=== PATIENT | male | born 1975 | race Caucasian/White ===

== ENCOUNTER 2019-12-25 07:54 | Outpatient (CLI) | payer BC, SELFPAY ==
--- NOTE | 2020-01-02 23:40 | SLEEP_ITS ---
CPAP Titration DATE OF STUDY: 12/25/2019 REASON FOR THIS STUDY: Severe obstructive sleep apnea syndrome. HISTORY: This patient is a 44-year-old male, who is 73 inches tall, weighing 367 pounds with a body mass index of 48.4. On 09/16/2019, he underwent a home sleep study that showed an apnea-hypopnea index of 44.2 with a minimum desaturation of 68%. He returns now for a CPAP titration. PAST MEDICAL HISTORY: Bicuspid aortic valve with a history of mechanical aortic valve replacement on chronic anticoagulation. MEDICATIONS: 1. Aspirin. 2. Fenofibrate. 3. Lisinopril. 4. Metoprolol. 5. Warfarin. 6. Furosemide. DESCRIPTION OF THE STUDY: On the [place] Sleepiness Scale, the score was 5. This test was scored using CMS guidelines. The [employer] multiple channel system was used including EOG, EEG, submental EMG, EKG, nasal and oral airflow using thermistors and nasal pressure sensors, chest and abdominal belts, body position data and pulse oximetry. The study was scored using CMS guidelines. Duration of the study was 503.7 minutes. The sleep time was 411.5 minutes. Sleep efficiency was 81.7%. Sleep latency was 12.9 minutes. REM latency was 90 minutes. There were 39 awakenings and the patient spent 16.2% of the study awake after sleep onset, 79 minutes. Sleep architecture showed 10.5% stage I sleep, 56.1% stage II sleep, no stage III sleep, and 17.2% stage REM. None of the study was supine. It was all lateral. The overall apnea-hypopnea index was 10.8. All of these were obstructive events. The patient had 43 obstructive hypopneas in REM in non-supine position. The index was 30.5. In non-REM, the patient had 32 obstructive hypopneas, also non-supine for an index of 5.9. The non-supine index overall was 10.8. The minimum desaturation was 86%. There were 83 desaturations of 4% or greater for an index of 9.9. REM desaturation index was 35.5. A 0.5 minutes were spent below 88%, 0.1% of the study. AROUSALS: One hundred sixty-three arousals for an index of 19.4. There were 17 hypopneas for an index of 2, 1 snore for an index of 0.1, 93 spontaneous for an index of 11.1, and 52 limb movements for an index of 6.2. LIMB MOVEMENTS: Three hundred eighty-two limb movements for an index of 55.7. This is extremely elevated. EKG: Sinus rhythm, mean heart rate is 62. No arrhythmia. EEG: Unremarkable. During this titration, the patient used a medium Zamarripa FX mask. CPAP was initiated at 5 cm. However, the patient was having a difficult time sleeping, so bilevel was used for the patient's comfort and then this was switched back to CPAP when the patient was more comfortable. Respiratory rate was elevated around 30 per minute. EPR was added as the patient was having oral puffing. At the end of the study, on a CPAP pressure of 12 cm and 3 of EPR, the apnea-hypopnea index was significantly improved at 3.7. The patient spent 1 hour 56 minutes in bed, 18 minutes in REM, 1 hour 18 minutes in non-REM with a minimum saturation of 91%. The sleep efficiency was 77%. No central events were noted on this study. IMPRESSION: 1. This was a challenging CPAP BiPAP titration due to multiple factors including the patient's high apnea-hypopnea index initially, intolerant of low levels of CPAP, and absence of supine REM. Overall, the sleep architecture was relatively normal with 4 REM cycles. However, there was fragmentation that persisted throughout the study. This patient may benefit by use of CPAP at 12 cm with 3 of EPR. He may also tolerate auto PAP with pressures between benefit at a bilevel of 11/7, 10 cm and 15 cm with EPR and close clinical followup. He should use this with all episodes of sleep. 2. Extremely elevated limb movement index consis
== END 2019-12-25 07:55 | disposition home or self-care (01) ==
LOC: ANHCSM 07:55
PROVIDERS: PCP Internal Medicine; Visit Provider Nurse Practitioner Adult Health
DX: G47.33 Obstructive sleep apnea (adult) (pediatric) (principal); G47.61 Periodic limb movement disorder; Z68.42 Body mass index [BMI] 45.0-49.9, adult
CPT/HCPCS: 95811

== ENCOUNTER 2020-02-19 08:38 | Outpatient (CLI) | payer BC, SELFPAY ==
--- NOTE | ~2020-02-19 | CT_ITS ---
EXAMINATION:CT chest w con DATE: 02/19/2020 09:55 INDICATION: Ascending aortic aneurysm. Bicuspid aortic valve. TECHNIQUE: Computed tomography (CT) of the chest was performed with 75 mL Omnipaque 350 intravenous c ontrast. Automated exposure control and iterative reconstruction technique were employed. The dose-le ngth product (DLP) was 970.81 mGy-cm. COMPARISON: None. FINDINGS: The lungs demonstrate mild atelectasis. No pleural effusion. The heart size is normal. No p ericardial effusion. There are changes of aortic valve replacement. There is a 5.1 cm fusiform aneury sm of ascending aorta. The aorta measures 3.1 cm at the isthmus. The mid descending aorta measures 3. 0 cm. There are no pathologically enlarged lymph nodes. There is mild thoracic spondylosis. IMPRESSION: 1. 5.1 cm fusiform aneurysm of ascending aorta. Reviewed, dictated and finalized at location A.
[2020-02-19 09:41] LABS: Estimated Glomerular Filt Rate > 60
== END 2020-02-19 08:39 | disposition home or self-care (01) ==
PROVIDERS: PCP Internal Medicine; Visit Provider Internal Medicine Cardiovascular Disease
DX: Q23.1 Congenital insufficiency of aortic valve (principal); I71.2 Thoracic aortic aneurysm, without rupture
CPT/HCPCS: 36415; 71260; Q9967

== ENCOUNTER 2021-02-20 18:10 | Inpatient (IN) | payer BC, SELFPAY ==
--- NOTE | ~2021-02-20 | XR_ITS ---
XR chest 1V portable DATE: 02/25/2021 20:47 INDICATION: Cough and wheezing for 2 days. Congestive heart, stents, aortic aneurysm TECHNIQUE: Portable AP chest on 02/25/2021 at 2047 hours COMPARISON: 02/21/2021 portable AP chest at 04 hours FINDINGS: Status post sternotomy. No pulmonary infiltrate or consolidation, pleural effusion or pulmonary vascular congestion or pneumo thorax is evident. Osteopenia. IMPRESSION: Status post sternotomy: No active pulmonary disease Reviewed, dictated and finalized at location A.
--- NOTE | ~2021-02-20 | XR_ITS ---
EXAMINATION: XR chest 1V portable INDICATION: Shortness of breath TECHNIQUE: Portable AP chest at 1004 hours COMPARISON: 06/17/2017 FINDINGS: The lungs are free of acute opacities. There is no pleural effusion or pneumothorax. The he art size is normal. Changes of cardiac valve surgery are noted. IMPRESSION: 1. No acute cardiopulmonary abnormality. Reviewed, dictated and finalized at location B.
--- NOTE | ~2021-02-20 | CT_ITS ---
EXAMINATION: CT abdomen pelvis w con INDICATION: Right-sided abdominal pain TECHNIQUE: Computed tomographic images of the abdomen and pelvis were obtained after the administrati on of 100 cc of Omnipaque 350 intravenous contrast. The dose-length product (DLP) was 1622.96 mGy-cm. Automated exposure control and iterative reconstruction technique were employed. COMPARISON: None available FINDINGS: Minimal dependent atelectasis is present in the lung bases. The heart size is normal. The l iver, spleen, pancreas, and adrenal glands are normal. There is wall thickening of the gallbladder an d edematous stranding of the pericholecystic fat. The kidneys are unremarkable. There are mildly enla rged periportal lymph nodes. There is no free intraperitoneal gas or evidence of bowel obstruction. T here is mild lumbar spondylosis. IMPRESSION: 1. CT findings consistent with acute cholecystitis. Reviewed, dictated and finalized at location A.
--- NOTE | ~2021-02-20 | US_ITS ---
EXAMINATION: US renal BI DATE: 02/21/2021 17:03 INDICATION: Acute kidney injury. TECHNIQUE: Multiple ultrasound grayscale images of the kidneys were obtained. COMPARISON: CT abdomen and pelvis 02/20/2021 FINDINGS: The right kidney measures 13.3 x 5.8 x 6.1 cm. The left kidney measures 12.1 x 5.3 x 7.0 cm. The kidn eys demonstrate normal parenchymal echogenicity. There is no hydronephrosis. The bladder is normal. IMPRESSION: 1. Normal kidneys. No hydronephrosis. Reviewed, dictated and finalized at location A.
--- NOTE | ~2021-02-20 | US_ITS ---
EXAMINATION: US perc cholecystostomy w imag DATE: 02/21/2021 17:06 INDICATION: Acute cholecystitis. TECHNIQUE: The procedure including the risks, benefits, and alternatives was discussed with the patie nt. Risks discussed included bleeding including hemobilia, infection, and bile peritonitis. Oral and written consent were obtained. A timeout was performed to verify the patient's name, date of , and procedure to be performed. The patient was confirmed to be receiving appropriate antibiotic cov erage. The skin overlying the liver and gallbladder was prepped and draped in usual sterile fashion. Anesthetic was administered with 1% lidocaine subcutaneously. An 8.5 Fr catheter was inserted into the gallbladder by trocar technique. The metal stiffener and trocar needle were removed, and the pig tail tip was locked. Bile was aspirated and sent for culture. The catheter was stitched to the skin w ith suture. There were no immediate complications. FINDINGS: Ultrasound images demonstrate the catheter within the gallbladder. 5 mL bile was aspirated. IMPRESSION: 1. Successful ultrasound-guided cholecystostomy tube placement. 2. 5 mL black bile was sent for aerobic and anaerobic cultures. 3. The catheter will be managed by Dr. Quinn. A catheter cholangiogram may be performed not less th an 48 hours after tube placement if clinically indicated to assess cystic duct patency. If cholecyste ctomy is not eventually performed and the infectious episode has resolved, the tube may be removed ov er a guidewire, preferably not less than 3 weeks after placement to allow time for a mature catheter tract to form to prevent bile leakage and peritonitis. Reviewed, dictated and finalized at location A. IMPRESSION: 1. Successful ultrasound-guided cholecystostomy tube placement. 2. 5 mL black bile was sent for aerobic and anaerobic cultures. 3. The catheter will be managed by Dr. Quinn. A catheter cholangiogram may be performed not less than 48 hours after tube placement if clinically indicated to assess cystic duct patency. If cholecystectomy is not eventually performed a nd the infectious episode has resolved, the tube may be removed over a guidewir e, preferably not less than 3 weeks after placement to allow time for a mature catheter tract to form to prevent bile leakage and peritonitis.
[2021-02-20 18:13] VITALS: BP 145/71; PULSE 128; RESP 24; TEMP 37.7; O2SAT 97
[2021-02-20 18:34] LABS: Basophils Absolute Auto 0.1 K/mm3 (0.0-0.1); Basophils Percent Auto 0.5 % (0.2-1.2); Eosinophils Absolute Auto 0.1 K/mm3 (0-0.3); Eosinophils Percent Auto 1.1 % (0-4.4); Hematocrit 45.4 % (42.0-52.0); Immature Granulocyte Absolute 0.03 K/mm3 (0.00-0.031); Immature Granulocyte Percent A 0.3 % (0-0.5); Lymphocytes Absolute Auto 0.43 K/mm3 (0.9-3.2); Lymphocytes Percent Auto 4.4 % (18.3-44.2); Mean Corpuscular Hemoglobin 27.3 pg (26-34); Mean Corpuscular Volume 82.5 fl (80-100); Mean Platelet Volume 11.2 fl (7.4-10.4); Monocytes Absolute Auto 0.1 K/mm3 (0.1-0.6); Monocytes Percent Auto 1.3 % (2.6-8.5); Neutrophils Absolute Auto 8.9 K/mm3 (1.3-6.7); Neutrophils Percent Auto 92.4 % (45.5-73.1); Platelet Count Result 194 k/mm3 (150-375); Red Cell Distribution Width 16.3 % (11.5-14.5); White Blood Count 9.7 K/mm3 (4.5-10.0)
[2021-02-20 18:45] LABS: Anion Gap 9 mmol/L (8-16); Blood Urea Nitrogen 11 mg/dL (9-20); Calcium 9.5 mg/dL (8.4-10.2); Carbon Dioxide 25 mmol/L (22-30); Chloride 102 mmol/L (98-107); Estimated CRCL calculation 179 ml/min; Estimated Glomerular Filt Rate > 60; Glucose 133 mg/dL (75-110); Potassium 4.3 mmol/L (3.4-5.0); Sodium 136 mmol/L (137-145)
[2021-02-20 18:47] LABS: Add Urine Microscopic? YES; Appearance Urine Clear (Clear); Bacteria Urine Trace /hpf; Bilirubin Urine Negative (Negative); Blood Urine 1+ (Negative); Color Urine Yellow (Yellow); Glucose Urine UA Negative (Negative); Ketones Urine Negative (Negative); Leukocyte Esterase Ur Negative LEU/UL (Negative); Mucus Urine Rare /lpf; Nitrate Urine Negative (Negative); Protein Urine 1+ mg/dL (Negative); Specific Grav Ur 1.016 (1.001-1.035); Urobilinogen Urine Negative mg/dL (<2.0); WBC Urine 0-3 /hpf
--- NOTE | 2021-02-20 18:47 | ED.ABDPAIN ---
HPI - Abdominal Pain General Chief Complaint: Abdominal Pain Stated Complaint: r sided abd pain Time Seen by Provider: 02/20/21 18:33 Source: patient Mode of arrival: ambulatory Limitations: no limitations History of Present Illness HPI narrative: Patient is a 45-year-old male complaining of right upper quadrant pain, 10 out of 10 earlier, now down to a 4 out of 10, sharp, nonradiating that started few hours ago. Patient denies any chest pain, shortness of breath, nausea, vomiting, diarrhea, fever or chills. Related Data Home Medications Medication Instructions Recorded Confirmed aspirin 81 mg chewable tablet 81 mg PO DAILY 03/01/20 02/20/21 lisinopril 20 mg tablet 40 mg PO DAILY 03/01/20 02/20/21 metoprolol tartrate 50 mg tablet 50 mg PO Q12H 03/01/20 02/20/21 warfarin 2 mg tablet 6 mg PO EVERY OTHER DAY 03/01/20 02/20/21 atorvastatin 40 mg tablet 40 mg PO DAILY 03/19/20 02/20/21 warfarin 4 mg tablet 4 mg PO EVERY OTHER DAY 12/23/20 02/20/21 Allergies Allergy/AdvReac Type Severity Reaction Status Date / Time No Known Allergies Allergy Verified 02/20/21 18:16 Review of Systems Review of Systems: All systems reviewed & are unremarkable except as noted in HPI and below Constitutional: Constitutional: Denies body ache(s), Denies chills, Denies excessive sweating, Denies fatigue, Denies fever(s), Denies headache(s), Denies lethargy, Denies malaise, Denies weakness and Denies weight loss Eyes: Eyes: Denies blurry vision, Denies change in vision and Denies loss of vision ENT: Denies dizziness, Denies ear discharge, Denies headache(s), Denies lip swelling, Denies epistaxis, Denies nasal congestion, Denies neck pain, Denies throat swelling and Denies tongue swelling Cardiovascular: Cardiovascular: Denies chest pain, Denies chest pain at rest, Denies chest pain with activity, Denies diaphoresis, Denies rapid heart rate, Denies edema, Denies irregular heart rhythm, Denies lightheadedness, Denies palpitations, Denies dyspnea and Denies dyspnea on exertion Respiratory: Respiratory: Denies chest congestion, Denies cough, Denies hemoptysis, Denies dyspnea and Denies dyspnea on exertion Gastrointestinal: Gastrointestinal: Denies melena, Denies hematochezia, Denies diarrhea, Denies nausea, Denies vomiting and Denies hematemesis Musculoskeletal: Musculoskeletal: Denies abnormal gait, Denies deformity, Denies joint swelling, Denies limited range of motion, Denies neck pain and Denies numbness Neurologic: Denies Abnormal speech present, Denies abnormal gait, Denies confusion, Denies dizziness, Denies headache(s), Denies focal weakness, Denies loss of vision, Denies numbness, Denies Other visual disturbances, Denies Sensory deficit (Neuro) and Denies weakness Psychiatric: Psychiatric: Denies confusion, Denies depression, Denies auditory hallucinations, Denies homicidal ideation and Denies suicidal ideation Endocrine: Endocrine: Denies cold intolerance, Denies excessive sweating, Denies fatigue, Denies heat intolerance and Denies palpitations Hematologic/Lymphatic: Hematologic/Lymphatic: Denies easy bleeding and Denies easy bruising Allergic/Immunologic: Allergic/Immunologic: Denies lip swelling, Denies throat swelling and Denies tongue swelling PMFSH Past Medical History Medical History Ascending aortic aneurysm Bicuspid aortic valve Cardiomyopathy Congenital heart defect Diabetes mellitus Enlarged heart Essential hypertension Hyperglyceridemia Morbid obesity MARY JANE (obstructive sleep apnea) Pulmonary valve disorder Family History Family History Mother Hypertension Father Family history of diabetes mellitus in first degree relative Grandparent Diabetes mellitus Family history of coronary artery disease Social History Social History Smoking status: Never smoker S
--- NOTE | 2021-02-20 20:00 | ECG_ITS ---
Measurements Intervals [place] Rate: 118 P: [place]: 0 QRS: 0 QRSD: 97 T: 72 QT: 334 QTc: 469 Interpretive Statements SINUS TACHYCARDIA LEFT VENTRICULAR HYPERTROPHY AND ST-T CHANGE ABNORMAL ECG Electronically Signed On 02-21-2021 8:29:49 CDT by Evens Mehta D.O.
[2021-02-20] MEDS: SODIUM CHLORIDE 0.9% IV 1,000 ML 999 ML IV CONT (20:01)
[2021-02-20] MEDS: ONDANSETRON INJ 4 MG/2 ML VIAL IV PUSH (20:01)
[2021-02-20] MEDS: MORPHINE SULFATE (*CRX) 2 MG/ML INJ IV PUSH (20:02)
[2021-02-20 20:41] VITALS: BP 94/61; PULSE 104; RESP 19; TEMP 39.5; O2SAT 93
[2021-02-20 20:42] LABS: Alanine Aminotransferase 311 U/L (4-50); Alkaline Phosphatase 129 U/L (38-126); Aspartate Amino Transferase 475 U/L (17-59); Bilirubin,Total 2.1 mg/dL (0.2-1.3); Lactic Acid Reflex 3.4 mmol/L (0.7-2.1); Lipase 131 U/L (23-300)
[2021-02-20] MEDS: ACETAMINOPHEN 325 MG TABLET 650 MG PO (20:50)
[2021-02-20 21:01] LABS: INR 2.3; Prothrombin Time 25.8 Seconds (11.1-14.7)
[2021-02-20] MEDS: LACTATED RINGERS 1,000 ML 999 ML IV CONT (21:18)
[2021-02-20 21:58] VITALS: BP 102/69; PULSE 104; RESP 16; TEMP 38.8; O2SAT 93
[2021-02-20 22:34] VITALS: PULSE 111
--- NOTE | 2021-02-20 22:35 | ADMGEN ---
This patient, Chung Cornelius, was admitted to Medical Room 253-01. Patient/family oriented to hospital policies and general routines including ID bracelet, bed and alarms, visiting hours, pain management, procedures, bathroom and other care routines, personal items, smoking policy, room service/diet, and visiting hours. Information on how to activate the Rapid Response Team has been discussed. Patient/Family are encouraged to report perceived risks to care and to ask questions if they do not understand what they are told or what they should do.
[2021-02-20 22:45] VITALS: BP 106/56; PULSE 109; RESP 18; TEMP 38.3; O2SAT 98
[2021-02-20 22:46] VITALS: BMI 43.5
[2021-02-20] MEDS: LACTATED RINGERS 1,000 ML 125 ML IV CONT (22:48)
[2021-02-20 23:15] VITALS: TEMP 37.7
[2021-02-20 23:27] LABS: Reflex Lactic Acid Yes or No Add Lactic
[2021-02-21] VITALS (26 sets, daily range): BP systolic 100–120; BP diastolic 45–69; PULSE 89–119; RESP 16–28; TEMP 36.3–38.4; O2SAT 84–98
[2021-02-21 00:44] LABS: Glucose Point of Care 124 (65-105)
[2021-02-21 01:31] LABS: Lactic Acid 4.2 mmol/L (0.7-2.1)
[2021-02-21] MEDS: SODIUM CHLORIDE 0.9% IV 1,000 ML 999 ML IV CONT (02:00)
[2021-02-21] MEDS: HYDROmorphone HCL INJ (*CRX) 1 MG/ML SYR 0.5 MG IV PUSH ×5 (03:05→20:48)
--- NOTE | 2021-02-21 04:19 | PM.IMHP ---
H&P: HPI History of Present Illness Date/Time: 02/21/21 04:19 this is a 45-year-old male patient who has had no prior history and any gallbladder issues. He has a past medical history of having an aortic valve replacement which is mechanical. He has been on Coumadin for this. The patient stated that shortly after he ate pizza and some other food items he developed some severe pain to his right upper quadrant. The patient had been complaining that his pain was 10/10. By time he came to the emergency room is 4/10. The pain started several hours before came to the emergency room. The patient denied any chest pain or shortness of breath. He had some diarrhea but no nausea or vomiting. The patient had a 37.7? C temperature and his heart rate was 128. CT of the abdomen was findings consistent with acute cholecystitis. The patient was started on IV fluids, Zofran, Zosyn, morphine, Tylenol, and IV fluids. the ER provider stated that surgery has been consulted the patient is NPO and that the surgeon is aware that the patient has a valve replacement and has been on Coumadin. The patient is now NPO. The patient is being admitted to inpatient services on the date of service of 02/21/2021 Chief Complaint: Right upper quadrant pain Review of Systems Review of Systems: All systems reviewed & are unremarkable except as noted in HPI and below Constitutional: Constitutional: Reports as per HPI and Reports no additional constitutional complaints Eyes: Eyes: Reports as per HPI and Reports no additional eye complaints ENT: Reports system reviewed and no additional complaints, except as documented and Reports Normal hearing present Cardiovascular: Cardiovascular: Reports no additional cardiovascular complaints Respiratory: Respiratory: Reports no additional respiratory complaints and Reports no additional respiratory complaints Gastrointestinal: Gastrointestinal: Reports as per HPI and Reports no additional gastrointestinal complaints Musculoskeletal: Musculoskeletal: Reports no additional musculoskeletal complaints Integumentary/Breasts: Skin/Breast: Reports system reviewed and no additional complaints, except as docu and Reports as per HPI Neurologic: Reports system reviewed and no additional complaints, except as documented, Reports as per HPI and Reports Normal hearing present Psychiatric: Psychiatric: Reports no additional psychiatric complaints and Reports as per HPI Endocrine: Endocrine: Reports no additional endocrine complaints Hematologic/Lymphatic: Hematologic/Lymphatic: Reports no additional hematologic/lymphatic complaints Allergic/Immunologic: Allergic/Immunologic: Reports no additional allergic/immunologic complaints [facility] Past Medical History Medical History (Updated 02/21/21 @ 04:31 by Bonnie Shultz NP) Ascending aortic aneurysm Bicuspid aortic valve Cardiomyopathy Congenital heart defect Diabetes mellitus DM2 (diabetes mellitus, type 2) Enlarged heart Essential hypertension Hyperglyceridemia Hyperlipidemia Morbid obesity MARY JANE (obstructive sleep apnea) Pulmonary valve disorder Surgical History Surgical History (Updated 02/21/21 @ 04:24 by Bonnie Shultz NP) History of aortic valve replacement mechanical History of appendectomy Family History Family History Mother Hypertension Father Family history of diabetes mellitus in first degree relative Family history of cholecystectomy Grandparent Diabetes mellitus Family history of coronary artery disease Social History Social History (Updated 02/21/21 @ 04:25 by Bonnie Shultz NP) Social History: the patient lives with his and she is a durable power commercial litigation attorney for healthcare. 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 He has 1 child. His is the durable power commercial litigation attorney for healthcare. He is a full code. The patient occasionally uses alcohol but only socially. He does no
[2021-02-21] MEDS: HEPARIN SOD/D5W 100 UNITS/ML 25,000 UNITS/250 ML BAG 15 UNITS IV CONT (05:17)
[2021-02-21 05:46] LABS: Basophils Percent Auto 0.3 % (0.2-1.2); Eosinophils Absolute Auto 0.1 K/mm3 (0-0.3); Hematocrit 39.4 % (42.0-52.0); Hemoglobin 12.8 g/dL (14.0-18.0); Immature Granulocyte Absolute 0.05 K/mm3 (0.00-0.031); Immature Granulocyte Percent A 0.5 % (0-0.5); Lymphocytes Absolute Auto 0.41 K/mm3 (0.9-3.2); Lymphocytes Percent Auto 4.1 % (18.3-44.2); Mean Corpuscular HGB Conc 32.5 g/dl (32-36); Mean Corpuscular Hemoglobin 27.8 pg (26-34); Mean Corpuscular Volume 85.5 fl (80-100); Mean Platelet Volume 11.2 fl (7.4-10.4); Monocytes Absolute Auto 0.1 K/mm3 (0.1-0.6); Monocytes Percent Auto 1.4 % (2.6-8.5); Neutrophils Absolute Auto 9.3 K/mm3 (1.3-6.7); Neutrophils Percent Auto 92.7 % (45.5-73.1); Platelet Count Result 140 k/mm3 (150-375); Red Blood Count 4.61 M/mm3 (4.6-6.20); Red Cell Distribution Width 16.5 % (11.5-14.5)
[2021-02-21 05:51] LABS: Glucose Point of Care 104 (65-105)
[2021-02-21 05:52] LABS: INR 2.5; Prothrombin Time 27.8 Seconds (11.1-14.7)
[2021-02-21 05:53] LABS: Partial Thromboplastin Time 42.2 SECONDS (22.3-36.8)
[2021-02-21 05:54] LABS: Anion Gap 9 mmol/L (8-16); Blood Urea Nitrogen 17 mg/dL (9-20); Calcium 8.4 mg/dL (8.4-10.2); Carbon Dioxide 24 mmol/L (22-30); Chloride 103 mmol/L (98-107); Estimated CRCL calculation 93 ml/min; Estimated Glomerular Filt Rate 55; Glucose 105 mg/dL (75-110); Potassium 4.4 mmol/L (3.4-5.0); Sodium 136 mmol/L (137-145)
[2021-02-21] MEDS: ONDANSETRON INJ 4 MG/2 ML VIAL IV PUSH ×2 (07:43→11:35)
[2021-02-21 08:36] LABS: Lactic Acid Reflex 5.2 mmol/L (0.7-2.1)
[2021-02-21 08:45] LABS: Albumin Level 3.2 g/dL (3.5-5.1); Alkaline Phosphatase 89 U/L (38-126); Aspartate Amino Transferase 202 U/L (17-59); Bilirubin,Total 5.1 mg/dL (0.2-1.3)
[2021-02-21] MEDS: LACTATED RINGERS 1,000 ML 125 ML IV CONT ×2 (08:47→19:25)
[2021-02-21 08:52] LABS: Alanine Aminotransferase 243 U/L (4-50)
[2021-02-21 10:10] LABS: Bilirubin Direct 1.7 mg/dL (0-0.3); Bilirubin Indirect 2.2 mg/dL (0-1.1)
--- NOTE | 2021-02-21 10:32 | P.PNIM_ITS ---
Progress Note: A&P Assessment and Plan (1) Acute cholecystitis: Code(s): K81.0 - Acute cholecystitis <Tanya Hernandez PA-C - Last Filed: 02/21/21 12:27> Status: Acute <Tanya Hernandez PA-C - Last Filed: 02/21/21 12:27> Assessment and Plan: * Sudden onset right upper abdominal pain. CT findings consistent with acute cholecystitis. * Continue Zosyn (day 1). General surgery input appreciated. Anticipate possible perc cholecystostomy tube placement today. * Continue pain control and antiemetics as needed. <Tanya Hernandez PA-C - Last Filed: 02/21/21 12:27> (2) Sepsis: Qualifiers: Sepsis acute organ dysfunction status: unspecified Sepsis type: sepsis due to unspecified organism Qualified Code(s): A41.9 - Sepsis, unspecified organism <Tanya Hernandez PA-C - Last Filed: 02/21/21 12:27> Code(s): A41.9 - Sepsis, unspecified organism <Tanya Hernandez PA-C - Last Filed: 02/21/21 12:27> Status: Acute <Tanya Hernandez PA-C - Last Filed: 02/21/21 12:27> Assessment and Plan: * Evident by fever, tachycardia. Lactic acid up to 5.2. Suspected source is acute cholecystitis. * Continue IV fluids while monitoring fluid status closely given his valve history. Ice packs and cooling blanket for fever. Not able to take ibuprofen due to his coumadin and renal function, will attempt to avoid too much tylenol given his transaminitis. * Continue antibiotics as above. Ordered blood cultures this morning although abx have already been initiated. * Monitor renal function, vital signs, and urine output closely. <Tanya Hernandez PA-C - Last Filed: 02/21/21 12:27> (3) Abnormal liver function tests: Code(s): R94.5 - Abnormal results of liver function studies <PETERSON AguayoC - Last Filed: 02/21/21 12:27> Status: Acute <EVERARDO Aguayo-C - Last Filed: 02/21/21 12:27> Assessment and Plan: * LFTs markedly elevated on arrival, trending down this morning. Total bilirubin 2.1 yesterday up to 5.1 this morning raising concern for possible stone in CBD duct. * Monitor daily. <PETERSON AguayoC - Last Filed: 02/21/21 12:27> (4) History of aortic valve replacement: Code(s): Z95.2 - Presence of prosthetic heart valve <PETERSON AguayoC - Last Filed: 02/21/21 12:27> Status: Chronic <PETERSON AguayoC - Last Filed: 02/21/21 12:27> Assessment and Plan: * [facility] mechanical aortic valve replacement Jul [address] Sterling. * Follows with Dr Cervantes. Recent echocardiogram 01/28/21 reviewed - systolic function is normal EF 55-60% without wall motion abnormalities. Impaired diastolic relaxation grade I. Mild [place], [place], [place]. Mild pulmonary hypertension. Mild LA enlargement. Aortic root mod to severely dilated. 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 On long-term anticoagulation with warfarin for same with goal INR 2.5 to 3.5. Given his need for possible surgical intervention, his warfarin was held on arrival and he was started on heparin gtt. * Heparin gtt held at pres
--- NOTE | 2021-02-21 10:32 | PM.IMPN ---
Progress Note: A&P Assessment and Plan (1) Acute cholecystitis: Code(s): K81.0 - Acute cholecystitis <Tanya Hernandez PA-C - Last Filed: 02/21/21 12:27> Status: Acute <Tanya Hernandez PA-C - Last Filed: 02/21/21 12:27> Assessment and Plan: Sudden onset right upper abdominal pain. CT findings consistent with acute cholecystitis. Continue Zosyn (day 1). General surgery input appreciated. Anticipate possible perc cholecystostomy tube placement today. Continue pain control and antiemetics as needed. <Tanya Hernandez PA-C - Last Filed: 02/21/21 12:27> (2) Sepsis: Qualifiers: Sepsis acute organ dysfunction status: unspecified Sepsis type: sepsis due to unspecified organism Qualified Code(s): A41.9 - Sepsis, unspecified organism <Tanya Hernandez PA-C - Last Filed: 02/21/21 12:27> Code(s): A41.9 - Sepsis, unspecified organism <Tanya Hernandez PA-C - Last Filed: 02/21/21 12:27> Status: Acute <Tanya Hernandez PA-C - Last Filed: 02/21/21 12:27> Assessment and Plan: Evident by fever, tachycardia. Lactic acid up to 5.2. Suspected source is acute cholecystitis. Continue IV fluids while monitoring fluid status closely given his valve history. Ice packs and cooling blanket for fever. Not able to take ibuprofen due to his coumadin and renal function, will attempt to avoid too much tylenol given his transaminitis. Continue antibiotics as above. Ordered blood cultures this morning although abx have already been initiated. Monitor renal function, vital signs, and urine output closely. <Tanya Hernandez PA-C - Last Filed: 02/21/21 12:27> (3) Abnormal liver function tests: Code(s): R94.5 - Abnormal results of liver function studies <Tanya Hernandez PA-C - Last Filed: 02/21/21 12:27> Status: Acute <Tanya Hernandez PA-C - Last Filed: 02/21/21 12:27> Assessment and Plan: LFTs markedly elevated on arrival, trending down this morning. Total bilirubin 2.1 yesterday up to 5.1 this morning raising concern for possible stone in CBD duct. Monitor daily. <Tanya Hernandez PA-C - Last Filed: 02/21/21 12:27> (4) History of aortic valve replacement: Code(s): Z95.2 - Presence of prosthetic heart valve <Tanya Hernandez PA-C - Last Filed: 02/21/21 12:27> Status: Chronic <Tanya Hernandez PA-C - Last Filed: 02/21/21 12:27> Assessment and Plan: [employer] mechanical aortic valve replacement Jul [address] Sterling. Follows with Dr Cervantes. Recent echocardiogram 01/28/21 reviewed - systolic function is normal EF 55-60% without wall motion abnormalities. Impaired diastolic relaxation grade I. Mild [place], TR, AR. Mild pulmonary hypertension. Mild LA enlargement. Aortic root mod to severely dilated. 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 On long-term anticoagulation with warfarin for same with goal INR 2.5 to 3.5. Given his need for possible surgical intervention, his warfarin was held on arrival and he was started on heparin gtt. Heparin gtt held at present by surgery for possible perc drain placement today. Anticipate heparin gtt to be resumed later this afternoon after perc drain placement. Anticipate warfarin to be held again this evening. He will need to stay on heparin gtt until his warfarin gets resumed and could be stopped once INR is between 2.5 - 3.5. Monitor INR daily.
--- NOTE | 2021-02-21 11:20 | PM.CNGS ---
Assessment and Plan Assessment and plan (1) Acute cholecystitis: Code(s): K81.0 - Acute cholecystitis Status: Acute Assessment and Plan: CT scan reviewed with Dr. Quinn and discussed with the patient. He has evidence of acute cholecystitis, no obvious gallstones seen on CT. This appears to be the source of his sepsis. The patient would be an extremely high risk surgical candidate due to his cardiac history, anticoagulation, sepsis, obesity, and other co-morbidities. With this being said, we will proceed with percutaneous cholecystostomy tube placement today by the Radiologist. I have discussed the plan with the patient and answered all questions. Dr. Quinn has already spoke to the Radiologist and we will stop the Heparin drip and give 2 units of FFP in preparation for the procedure. Continue broad-spectrum IV antibiotics, IV fluids, and analgesics as well. Will need to continue to trend labs and monitor the patient closely. (2) Abnormal liver function tests: Code(s): R94.5 - Abnormal results of liver function studies Status: Acute Assessment and Plan: LFTs elevated, which could be related to the acute cholecystitis or choledocholithiasis. There is no significant intrahepatic or extrahepatic ductal dilatation noted on the CT. We will proceed with the plan above and repeat labs tomorrow. If his LFTs remain elevated or continue to increase, then we will need to consult GI to evaluate the patient for an ERCP. He is not a candidate for MRCP due to mechanical valve. (3) Sepsis: Qualifiers: Sepsis type: sepsis due to unspecified organism Sepsis acute organ dysfunction status: unspecified Qualified Code(s): A41.9 - Sepsis, unspecified organism Code(s): A41.9 - Sepsis, unspecified organism Status: Acute Assessment and Plan: Secondary to acute cholecystitis. Sepsis criteria met with tachycardia, fever, tachypnea, and lactic acidosis in the setting of an acute infection. Continue IV Zosyn. IV fluids being managed by the Hospitalist to adequately fluid resuscitate him without fluid overload due to his cardiac history. Percutaneous cholecystostomy planned for today for source control (see plan rustam). Blood cultures ordered. Monitor serial lactic acid. (4) RAJNI (acute kidney injury): Code(s): N17.9 - Acute kidney failure, unspecified Status: Acute Assessment and Plan: Creatinine up to 1.4 on labs today. Discussed with Hospitalist. Likely secondary to sepsis/acute cholecystitis. Continue to monitor labs. 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 We will hold the Heparin drip for cholecystostomy tube placement. This can be restarted after the cholecystostomy tube is successfully placed. (6) History of aortic valve replacement: Code(s): Z95.2 - Presence of prosthetic heart valve Status: Chronic Assessment and Plan: Mechanical aortic valve replacement in 2017. Takes warfarin, which is currently on hold. See plan above. (7) Ascending aortic aneurysm: Code(s): I71.2 - Thoracic aortic aneurysm, without rupture Status: Chronic Assessment and Plan: Measuring 5.[address] chest in February 2020. Last Cardiology progress note suggests this was stable on his most recent Echo. (8) DM2 (diabetes mellitus, type 2): Code(s): E11.9 - Type 2 diabetes mellitus without complications Status: Chronic (9) MARY JANE (obstructive sleep apnea): Code(s): G47.33 - Obstructive sleep apnea (adult) (pediatric) Status: Chronic Assessment and Plan: Non-compliant with CPAP. (10) Essential hypertension: Code(s): I10 - Essential (primary) hypertension Status: Chronic Additional Plan I have discussed the patient's case and plan of care with Dr. Quinn.
[2021-02-21] MEDS: SODIUM CHLORIDE 0.9% IV 250 ML 30 ML IV CONT (12:39)
[2021-02-21 13:03] LABS: Glucose Point of Care 99 (65-105)
[2021-02-21 13:34] LABS: Lactic Acid Reflex 4.8 mmol/L (0.7-2.1)
[2021-02-21 13:39] LABS: Alanine Aminotransferase 246 U/L (4-50); Albumin Level 3.2 g/dL (3.5-5.1); Alkaline Phosphatase 86 U/L (38-126); Anion Gap 10 mmol/L (8-16); Aspartate Amino Transferase 180 U/L (17-59); Bilirubin,Total 5.9 mg/dL (0.2-1.3); Blood Urea Nitrogen 24 mg/dL (9-20); Calcium 8.1 mg/dL (8.4-10.2); Carbon Dioxide 20 mmol/L (22-30); Chloride 104 mmol/L (98-107); Estimated CRCL calculation 77 ml/min; Estimated Glomerular Filt Rate 44; Glucose 101 mg/dL (75-110); Potassium 4.8 mmol/L (3.4-5.0); Sodium 134 mmol/L (137-145)
--- NOTE | 2021-02-21 14:42 | PC.NURSE ---
report given to Cassandra on IMU for transfer
[2021-02-21 16:03] LABS: Reflex Lactic Acid Yes or No Add Lactic
[2021-02-21 18:49] LABS: Glucose Point of Care 85 (65-105)
[2021-02-21 19:01] LABS: Lactic Acid 3.2 mmol/L (0.7-2.1)
--- NOTE | 2021-02-21 19:11 | PC.NURSE ---
This patient, Chung Cornelius, was received from [ Daphne] on 02/21/21 at 1455. Patient/family oriented to unit policies and routines
--- NOTE | 2021-02-21 19:30 | PC.NURSE ---
Heparin on hold for procedure. Restart Heparin 15mls/hr 2 hours post procedure due to cardiac valve replacement. Stoney Serna RN
[2021-02-21 23:38] LABS: Glucose Point of Care 78 (65-105)
[2021-02-22] VITALS (17 sets, daily range): BP systolic 116–130; BP diastolic 52–80; PULSE 75–95; RESP 18–20; TEMP 36.4–36.9; O2SAT 94–96
[2021-02-22 01:24] LABS: INR 2.4; Prothrombin Time 26.9 Seconds (11.1-14.7)
[2021-02-22 01:44] LABS: Partial Thromboplastin Time 66.6 SECONDS (22.3-36.8)
[2021-02-22] MEDS: HEPARIN SODIUM 5,000 UNITS/ML VIAL 4500 UNITS IV PUSH (01:52)
[2021-02-22] MEDS: LACTATED RINGERS 1,000 ML 125 ML IV CONT (03:15)
[2021-02-22] MEDS: HYDROmorphone HCL INJ (*CRX) 1 MG/ML SYR 0.5 MG IV PUSH (03:20)
[2021-02-22 05:35] LABS: Glucose Point of Care 96 (65-105)
[2021-02-22 07:55] LABS: Hematocrit 34.5 % (42.0-52.0); Hemoglobin 11.5 g/dL (14.0-18.0); Mean Corpuscular HGB Conc 33.3 g/dl (32-36); Mean Corpuscular Hemoglobin 27.8 pg (26-34); Mean Corpuscular Volume 83.5 fl (80-100); Mean Platelet Volume 11.3 fl (7.4-10.4); Platelet Count Result 83 k/mm3 (150-375); Red Blood Count 4.13 M/mm3 (4.6-6.20); Red Cell Distribution Width 16.7 % (11.5-14.5); White Blood Count 12.2 K/mm3 (4.5-10.0)
[2021-02-22 08:06] LABS: Alanine Aminotransferase 183 U/L (4-50); Alkaline Phosphatase 108 U/L (38-126); Anion Gap 4 mmol/L (8-16); Aspartate Amino Transferase 90 U/L (17-59); Bilirubin,Total 3.7 mg/dL (0.2-1.3); Blood Urea Nitrogen 19 mg/dL (9-20); Calcium 8.1 mg/dL (8.4-10.2); Carbon Dioxide 26 mmol/L (22-30); Chloride 106 mmol/L (98-107); Estimated CRCL calculation 128 ml/min; Estimated Glomerular Filt Rate > 60; Glucose 102 mg/dL (75-110); Magnesium 1.4 mg/dL (1.6-2.3); Potassium 3.2 mmol/L (3.4-5.0); Sodium 136 mmol/L (137-145)
[2021-02-22 08:14] LABS: Partial Thromboplastin Time 86.4 SECONDS (22.3-36.8)
[2021-02-22] MEDS: HEPARIN SOD/D5W 100 UNITS/ML 25,000 UNITS/250 ML BAG 17 UNITS IV CONT (09:23)
[2021-02-22] MEDS: MAGNESIUM SULF 2 GM/WATER 50ML 2 GM/50 ML BAG IVPB (09:34)
[2021-02-22 09:37] LABS: Band Neutrophils Percent 5 % (0-6); Basophils Absolute Manual 0.12 K/mm3 (0.0-0.1); Basophils Percent Manual 1 % (0-1); Lymphocytes Absolute Manual 0.61 K/mm3 (1.1-4.5); Monocytes Absolute Manual 0.73 K/mm3 (0.1-0.90); Monocytes Percent Manual 6 % (3-9); Neutrophils Absolute Manual 10.73 K/mm3 (1.3-6.7); Neutrophils Percent Manual 83 % (46-73); Total Cells Counted 100
[2021-02-22 09:38] LABS: Hypochromasia 2+ (NORMAL)
[2021-02-22 09:43] LABS: Platelet Estimate Adequate (Adequate)
--- NOTE | 2021-02-22 10:05 | PM.CNCAR ---
Assessment and Plan Assessment and plan (1) Acute cholecystitis: Code(s): K81.0 - Acute cholecystitis Status: Acute Assessment and Plan: Patient was admitted with fevers, sepsis, lactic acidosis, acute kidney injury and acute cholecystitis. Status post percutaneous cholecystostomy 02/21/2021 and on antibiotics. Feeling better. Cumulative I/O = 7300/2300; if pt does not start auto-diuresing he may benefit fr a diuretic. (2) Sepsis: Qualifiers: Sepsis acute organ dysfunction status: unspecified Sepsis type: sepsis due to unspecified organism Qualified Code(s): A41.9 - Sepsis, unspecified organism Code(s): A41.9 - Sepsis, unspecified organism Status: Acute Assessment and Plan: Improving. (3) History of aortic valve replacement: Code(s): Z95.2 - Presence of prosthetic heart valve Status: Chronic Assessment and Plan: Status post mechanical [employer] aortic valve prosthesis. This valve is MRI compatible. INR goal is 2.0-3.0 No need for heparin if INR > 2.0 INR today was 2.4. Discussed with Dr. Leal; will hold heparin drip. (4) rn long term care current use of anticoagulant: Code(s): Z79.01 - rn long term care (current) use of anticoagulants Status: Acute Assessment and Plan: Warfarin in on hold; last dose was 02/20/2021 Will discuss w/ surgery and hospitalists when to resume warfarin. Message left with Dr. Quinn. History of Present Illness History of Present Illness Consult date/time: 02/22/21 10:05 Requesting physician: Tanya Hernandez PA-C Consult reason: Other (History of aortic valve replacement, perioperative management of anticoagulation) Reason For Visit: Acute Cholecystitis Narrative: Date of service: 02/22/2021 Mr. kristian Cornelius is a 45-year-old male whom I follow in the office for his mechanical aortic valve replacement and chronic anticoagulation. He was admitted on 02/20/2021 with sepsis and acute cholecystitis. He was started on heparin drip and given 2 units of fresh frozen plasma. He was seen by Dr. Quinn who felt he was a very high risk surgical candidate and recommended percutaneous cholecystostomy. He underwent cholecystotomy tube placement 02/21/[address] Shi. This morning he is feeling better, hungry and hopes he can eat soon, with less abdominal pain. Mild cough and some slight wheezing noted over last night. The patient found hat was found to have severe aortic insufficiency and CHF in June 2017 and underwent aortic valve replacement with a 21 mm [employer] mechanical valve by Dr. Sterling in July 2018. He has a dilated aortic root. He is chronically anticoagulated. He also has hypertension, hypertriglyceridemia, sleep apnea noncompliant with CPAP, prediabetes, and morbid obesity. 01/2021 echo: EF 55-60%, LVH, diastolic dysfunction, normal aortic valve prosthesis, mild aortic insufficiency, mean gradient 15 mmHg, aortic root and sinuses of Valsalva 5.2 cm. Review of Systems Constitutional: Constitutional: Denies chills and Denies difficulty sleeping Eyes: Eyes: Reports no additional eye complaints ENT: Reports nasal congestion Cardiovascular: Cardiovascular: Denies chest pain, Reports pedal edema and Denies leg edema Respiratory: Respiratory: Reports wheezing Gastrointestinal: Gastrointestinal: Reports abdominal pain, Denies hematochezia, Denies nausea and Denies vomiting Comments: Last BM 02/20/2021 Genitourinary: Genitourinary: Denies hematuria and Denies dysuria Musculoskeletal: Musculoskeletal: Denies back pain Integumentary/Breasts: Skin/Breast: Denies rash Neurologic: Denies confusion Psychiatric: Psychiatric:
[2021-02-22 12:17] LABS: Glucose Point of Care 118 (65-105)
[2021-02-22 14:05] LABS: Partial Thromboplastin Time 77.9 SECONDS (22.3-36.8)
--- NOTE | 2021-02-22 15:11 | PM.PNGS ---
Progress Note: A&P Assessment and Plan (1) Acute cholecystitis: Code(s): K81.0 - Acute cholecystitis Status: Acute Assessment and Plan: S/p percutaneous cholecystostomy tube placement yesterday, which is functioning well and has put 150 cc out. Bile cultures pending. Continue IV Zosyn. Will allow patient to try a clear liquid diet today. Repeat labs again tomorrow morning. (2) Abnormal liver function tests: Code(s): R94.5 - Abnormal results of liver function studies Status: Acute Assessment and Plan: Trending down today, which is less concerning for an obstructing common bile duct stone. Continue to monitor. (3) Sepsis: Qualifiers: Sepsis type: sepsis due to unspecified organism Sepsis acute organ dysfunction status: unspecified Qualified Code(s): A41.9 - Sepsis, unspecified organism Code(s): A41.9 - Sepsis, unspecified organism Status: Acute Assessment and Plan: Secondary to acute cholecystitis. Percutaneous cholecystostomy in place and functioning well. Lactic acid trended down to 2.0 today. Tachycardia resolved, HR in 80's on my exam. Afebrile since 02/21/21 at noon. Continue IV Zosyn. Blood cultures pending. Continue to monitor labs. 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 Currently on a Heparin drip. (5) History of aortic valve replacement: Code(s): Z95.2 - Presence of prosthetic heart valve Status: Chronic Additional Plan I discussed the plan of care with Dr. Quinn. Subjective Subjective Date/Time Seen: 02/22/21 14:11 Patient reports: no new complaints, feels better, pain is less and flatus Interval history: Patient feeling better today. Abdominal pain has improved, just some mild right-sided abdominal pain remaining. No nausea or vomiting. He reports still some shortness of breath, but feels this is improving as well. Per the nurse, he was off O2 while up in the chair today with stable O2 saturation, but his oxygen was reapplied after lying flat in bed and having an O2 sat of 89%. No other complaints at this time. Review of Systems Review of Systems: All systems reviewed & are unremarkable except as noted in HPI and below Exam Const: General: comfortable, no acute distress, alert and awake Nutritional Appearance: obese Orientation/consciousness: patient oriented x3 Cardio: Rate: regular rate Rhythm: regular rhythm Heart sounds: Other heart sounds present (audible mechanical click) GI: Inspection: normal to inspection, non-distended and obesity GI Palp: Yes Soft to palpation, Yes Tenderness to palpation present (GI) (RUQ/RLQ), No Guarding due to palpation present (GI) and Yes Other GI palpation findings present (RUQ perc cholecystostomy tube with gutierrez/brown bilious drainage) Auscultation: normal bowel sounds Skin: General skin exam: jaundice Neuro: General: moves all extremities and no focal motor deficits Extrem: General: no clubbing, cyanosis or edema Psych: Mental Status: mental status grossly normal Insight: Good insight present (Psych) Judgement: Good judgement present (Psych) Objective Data Vital Signs Vital Signs: Vital Signs - 24 hr 02/21/21 16:00 02/21/21 17:42 02/21/21 20:00 Temperature 97.4 F L 97.7 F Pulse Rate 109 H 106 H 98 Respiratory Rate 22 H 20 Blood Pressure 102/69 103/63 Pulse Oximetry 95 97 02/21/21 20:51 02/21/21 21:34 02/21/21 23:20 Temperature Pulse Rate 95 Respiratory Rate Blood Pressure Pulse Oximetry 91 96 02/21/21 23:24 02/22/21 00:15 02/22/21 01:37 Temperature 98.1 F Pulse Rate 89 94 90 Respiratory Rate 20 Blood Pressure 100/45 L Pulse Oximetry 97 02/22/21 04:00 02/22/21 05:46 02/22/21 07:55 Temperature 97.8 F 98.4 F Pulse Rate 94 95 91 Respiratory Rate 18 18 Blood Pressure 116/52 L 124
--- NOTE | 2021-02-22 16:27 | PM.IMPN ---
Progress Note: A&P Assessment and Plan (1) Acute cholecystitis: Code(s): K81.0 - Acute cholecystitis Status: Acute Assessment and Plan: Sudden onset right upper abdominal pain. CT findings consistent with acute cholecystitis. Continue Zosyn (day 1). General surgery input appreciated. Anticipate possible perc cholecystostomy tube placement today. Continue pain control and antiemetics as needed. 02/22/21 16:27 patient is a 45-year-old male status post aortic valve replacement on Coumadin for anticoagulation, he presented emergency department with a complaint of right upper quadrant pain he rated the pain 10/10 upon arrival, his lactic acid was elevated to 5, CT scan of abdomen as well as abdominal ultrasound showed acute cholecystitis however patient was also septic, was started on Zosyn, hydrated, and he was seen by surgery team and patient deemed high risk with surgery with sepsis and with chronic anticoagulation with Coumadin, Coumadin was put on hold and was given FFP it started heparin, surgery team recommended cholecystostomy tube placement. Patient was seen IR and the tube was placed and currently is draining bile, oral patient's symptoms improved his lactic acid is close to normal, patient is clinically better will continue to monitor and further recommendation to follow. (2) Sepsis: Qualifiers: Sepsis type: sepsis due to unspecified organism Sepsis acute organ dysfunction status: unspecified Qualified Code(s): A41.9 - Sepsis, unspecified organism Code(s): A41.9 - Sepsis, unspecified organism Status: Acute Assessment and Plan: Evident by fever, tachycardia. Lactic acid up to 5.2. Suspected source is acute cholecystitis. Continue IV fluids while monitoring fluid status closely given his valve history. Ice packs and cooling blanket for fever. Not able to take ibuprofen due to his coumadin and renal function, will attempt to avoid too much tylenol given his transaminitis. Continue antibiotics as above. Ordered blood cultures this morning although abx have already been initiated. Monitor renal function, vital signs, and urine output closely. (3) Abnormal liver function tests: Code(s): R94.5 - Abnormal results of liver function studies Status: Acute Assessment and Plan: LFTs markedly elevated on arrival, trending down this morning. Total bilirubin 2.1 yesterday up to 5.1 this morning raising concern for possible stone in CBD duct. Monitor daily. (4) History of aortic valve replacement: Code(s): Z95.2 - Presence of prosthetic heart valve Status: Chronic Assessment and Plan: [employer] mechanical aortic valve replacement Jul [address] Sterling. Follows with Dr Cervantes. Recent echocardiogram 01/28/21 reviewed - systolic function is normal EF 55-60% without wall motion abnormalities. Impaired diastolic relaxation grade I. Mild [place], TR, AR. Mild pulmonary hypertension. Mild LA enlargement. Aortic root mod to severely dilated. 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 On long-term anticoagulation with warfarin for same with goal INR 2.5 to 3.5. Given his need for possible surgical intervention, his warfarin was held on arrival and he was started on heparin gtt. Heparin gtt held at present by surgery for possible perc drain placement today. Anticipate heparin gtt to be resumed later this afternoon after perc drain placement. Anticipate warfarin to be held again this evening. He will need to stay on heparin gtt until his warfarin gets resumed and could be stopped once INR is between 2.5 - 3.5. Monitor INR daily. (6) Asc
[2021-02-22 17:21] LABS: Glucose Point of Care 105 (65-105)
[2021-02-22] MEDS: LACTATED RINGERS 1,000 ML 50 ML IV CONT (17:45)
[2021-02-22] MEDS: traMADol HCL (*CRX) 25 MG TABLET PO (20:57)
[2021-02-22 23:42] LABS: Glucose Point of Care 116 (65-105)
[2021-02-23] VITALS (18 sets, daily range): BP systolic 132–144; BP diastolic 80–89; PULSE 63–92; RESP 18–22; TEMP 36.2–36.7; O2SAT 95–99
[2021-02-23 05:17] LABS: Basophils Absolute Auto 0.1 K/mm3 (0.0-0.1); Basophils Percent Auto 0.6 % (0.2-1.2); Eosinophils Absolute Auto 0.3 K/mm3 (0-0.3); Eosinophils Percent Auto 3.3 % (0-4.4); Hemoglobin 10.9 g/dL (14.0-18.0); Immature Granulocyte Absolute 0.04 K/mm3 (0.00-0.031); Immature Granulocyte Percent A 0.4 % (0-0.5); Immature Platelet Fraction Pct 9.1 % (0.9-11.2); Lymphocytes Absolute Auto 0.59 K/mm3 (0.9-3.2); Lymphocytes Percent Auto 6.5 % (18.3-44.2); Mean Corpuscular Hemoglobin 27.2 pg (26-34); Mean Corpuscular Volume 82.3 fl (80-100); Mean Platelet Volume 11.1 fl (7.4-10.4); Monocytes Absolute Auto 0.6 K/mm3 (0.1-0.6); Monocytes Percent Auto 6.4 % (2.6-8.5); Neutrophils Absolute Auto 7.5 K/mm3 (1.3-6.7); Neutrophils Percent Auto 82.8 % (45.5-73.1); Platelet Count Result 81 k/mm3 (150-375); Red Blood Count 4.01 M/mm3 (4.6-6.20); Red Cell Distribution Width 15.8 % (11.5-14.5); White Blood Count 9.1 K/mm3 (4.5-10.0)
[2021-02-23 05:27] LABS: INR 1.3; Prothrombin Time 16.7 Seconds (11.1-14.7)
[2021-02-23 05:28] LABS: Partial Thromboplastin Time 35.4 SECONDS (22.3-36.8)
[2021-02-23 05:36] LABS: Alanine Aminotransferase 128 U/L (4-50); Albumin Level 2.9 g/dL (3.5-5.1); Alkaline Phosphatase 102 U/L (38-126); Anion Gap -1 mmol/L (8-16); Aspartate Amino Transferase 55 U/L (17-59); Bilirubin,Total 2.4 mg/dL (0.2-1.3); Blood Urea Nitrogen 11 mg/dL (9-20); Calcium 8.2 mg/dL (8.4-10.2); Carbon Dioxide 31 mmol/L (22-30); Chloride 108 mmol/L (98-107); Estimated CRCL calculation 158 ml/min; Estimated Glomerular Filt Rate > 60; Glucose 117 mg/dL (75-110); Potassium 3.7 mmol/L (3.4-5.0); Sodium 138 mmol/L (137-145)
[2021-02-23] MEDS: HEPARIN SODIUM 5,000 UNITS/ML VIAL 9000 UNITS IV PUSH ×2 (08:44→15:15)
[2021-02-23] MEDS: HEPARIN SOD/D5W 100 UNITS/ML 25,000 UNITS/250 ML BAG 15 UNITS IV CONT (08:44)
[2021-02-23 08:56] LABS: Partial Thromboplastin Time 36.1 SECONDS (22.3-36.8)
--- NOTE | 2021-02-23 09:52 | PM.IMPN ---
Progress Note: A&P Assessment and Plan (1) Acute cholecystitis: Code(s): K81.0 - Acute cholecystitis Status: Acute Assessment and Plan: Sudden onset right upper abdominal pain. CT findings consistent with acute cholecystitis. Continue Zosyn (day 1). General surgery input appreciated. Anticipate possible perc cholecystostomy tube placement today. 02/23/21 09:52 02/22 patient is a 45-year-old male status post aortic valve replacement on Coumadin for anticoagulation, he presented emergency department with a complaint of right upper quadrant pain he rated the pain 10/10 upon arrival, his lactic acid was elevated to 5, CT scan of abdomen as well as abdominal ultrasound showed acute cholecystitis however patient was also septic, was started on Zosyn, hydrated, and he was seen by surgery team and patient deemed high risk with surgery with sepsis and with chronic anticoagulation with Coumadin, Coumadin was put on hold and was given FFP it started heparin, surgery team recommended cholecystostomy tube placement. Patient was seen IR and the tube was placed and currently is draining bile, oral patient's symptoms improved his lactic acid is close to normal, patient is clinically better will continue to monitor and further recommendation to follow. 02/23 today patient is sitting in the chair, on 02/22 patient was seen by surgery service started the patient on clear liquid and is tolerating, patient was also seen by Cardiology and stopped heparin drip as his INR was 2.4 however this morning his INR is 1.3 patient with a mechanical aortic valve will resume heparin drip and start the patient on Coumadin will monitor INR. Patient will be seen by surgery service and further recommendation to follow, patient white counts are trending down bile culture no growth so far, culture is grow Gram-negative bacilli pending identification and sensitivity, continue Zosyn and and adjust antibiotic according to the culture. (2) Sepsis: Qualifiers: Sepsis type: sepsis due to unspecified organism Sepsis acute organ dysfunction status: unspecified Qualified Code(s): A41.9 - Sepsis, unspecified organism Code(s): A41.9 - Sepsis, unspecified organism Status: Acute Assessment and Plan: Evident by fever, tachycardia. Lactic acid up to 5.2. Suspected source is acute cholecystitis. Continue IV fluids while monitoring fluid status closely given his valve history. Ice packs and cooling blanket for fever. Not able to take ibuprofen due to his coumadin and renal function, will attempt to avoid too much tylenol given his transaminitis. Continue antibiotics as above. Ordered blood cultures this morning although abx have already been initiated. Monitor renal function, vital signs, and urine output closely. (3) Abnormal liver function tests: Code(s): R94.5 - Abnormal results of liver function studies Status: Acute Assessment and Plan: LFTs markedly elevated on arrival, trending down this morning. Total bilirubin 2.1 yesterday up to 5.1 this morning raising concern for possible stone in CBD duct. Monitor daily. (4) History of aortic valve replacement: Code(s): Z95.2 - Presence of prosthetic heart valve Status: Chronic Assessment and Plan: [employer] mechanical aortic valve replacement Jul [address] Sterling. Follows with Dr Cervantes. Recent echocardiogram 01/28/21 reviewed - systolic function is normal EF 55-60% without wall motion abnormalities. Impaired diastolic relaxation grade I. Mild [place], TR, AR. Mild pulmonary hypertension. Mild LA enlargement. Aortic root mod to severely dilated. 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
[2021-02-23 12:17] LABS: Glucose Point of Care 176 (65-105)
[2021-02-23] MEDS: LACTATED RINGERS 1,000 ML 50 ML IV CONT (13:39)
--- NOTE | 2021-02-23 13:51 | PM.PNGS ---
Progress Note: A&P Assessment and Plan (1) Acute cholecystitis: Code(s): K81.0 - Acute cholecystitis Status: Acute Assessment and Plan: Start low fat diet today Cultures growing E coli. Await sensitivities. Possibly home in the next 1-2 days if medically stable Will eventually get cholangiogram through cholecystostomy tube to determine if it can be removed. (2) Abnormal liver function tests: Code(s): R94.5 - Abnormal results of liver function studies Status: Acute (3) Sepsis: Qualifiers: Sepsis type: sepsis due to unspecified organism Sepsis acute organ dysfunction status: unspecified Qualified Code(s): A41.9 - Sepsis, unspecified organism Code(s): A41.9 - Sepsis, unspecified organism Status: Acute (4) History of aortic valve replacement: Code(s): Z95.2 - Presence of prosthetic heart valve Status: Chronic (5) group home current use of anticoagulant: Code(s): Z79.01 - group home (current) use of anticoagulants Status: Acute Subjective Subjective Date/Time Seen: 02/23/21 13:51 Interval history: Tolerating clear liquids. Pain improving. No fevers or chills. Exam GI: Inspection: other (bile bag with clear appearing bile) GI Palp: Yes Tenderness to palpation present (GI) (around drain) and No Guarding due to palpation present (GI) Objective Data Vital Signs Vital Signs: Vital Signs - 24 hr 02/22/21 14:00 02/22/21 16:00 02/22/21 16:45 Temperature 36.4 C L Pulse Rate 80 84 75 Respiratory Rate 18 18 Blood Pressure 130/80 Pulse Oximetry 95 94 02/22/21 18:00 02/22/21 19:27 02/22/21 20:00 Temperature 36.4 C Pulse Rate 80 75 76 Respiratory Rate 18 Blood Pressure 126/69 Pulse Oximetry 94 02/22/21 22:00 02/23/21 00:00 02/23/21 02:00 Temperature 36.6 C Pulse Rate 78 70 92 Respiratory Rate 18 Blood Pressure 140/80 Pulse Oximetry 97 02/23/21 04:00 02/23/21 06:00 02/23/21 08:00 Temperature 36.7 C Pulse Rate 64 63 69 Respiratory Rate 18 Blood Pressure 144/81 H Pulse Oximetry 96 02/23/21 08:17 02/23/21 08:18 02/23/21 10:00 Temperature 36.7 C Pulse Rate 67 74 Respiratory Rate 22 H Blood Pressure 143/89 H Pulse Oximetry 95 99 02/23/21 12:00 02/23/21 12:19 Temperature 36.7 C Pulse Rate 76 71 Respiratory Rate 22 H Blood Pressure 142/88 H Pulse Oximetry 98 Intake/Output Intake/Output: Intake & Output 02/20/21 02/21/21 02/22/21 02/23/21 23:59 23:59 23:59 23:59 Intake Total 0 3882 3670 2738 Output Total 640 3500 2130 Balance 2049 3242 170 608 Meds/Results Medications: Active Medications Generic Name Dose Route Start Last Admin Trade Name Freq PRN Reason Stop Dose Admin Dextrose 12.5 gm 02/21/21 04:26 Dextrose 50% 25 Gm/50 Ml Syringe IV PUSH PRN PRN Hypoglycemia Protocol Glucagon 1 mg 02/21/21 04:26 Glucagon For Inj 1 Mg Vial IM PRN PRN Hypoglycemia Protocol Glucose 15 gm 02/21/21 04:26 Glucose Oral Gel 15 Gm Of Glucse In 37.5 Gm Tube PO PRN PRN Hypoglycemia Protocol Heparin Sodium (Porcine) 9,000 units 02/21/21 04:15 Heparin Sodium 5,000 Units/Ml Vial IV PUSH PRN PRN aPTT less than 55 seconds Heparin Sodium (Porcine) 4,500 units 02/21/21 04:15 02/22/21 01:52 Heparin Sodium 5,000 Units/Ml Vial IV PUSH 4,500 units PRN PRN Administration aPTT 55 - 70 seconds Hydralazine HCl 10 mg 02/21/21 04:30 Hydralazine Hcl 20 Mg/Ml Vial IV PUSH Q8H PRN Blood Pressure - High Hydromorphone HCl 0.5 mg 02/21/21 11:00 02/22/21 03:20 Hydromorphone Hcl Inj (*Crx) 1 Mg/Ml Syr IV PUSH 0.5 mg Q2H PRN Administration Pain Rated 7-10 Lactated Ringer's 1,000 mls @ 50 mls/hr 02/20/21 20:30 02/23/21 13:39 Lr - Lactated Ringers Iv IV CONT 50 mls/hr .Q20H YONATAN Administration Piperacillin/Tazobactam/Dextrose 3.375 gm in 50 mls @ 100
[2021-02-23 14:59] LABS: Partial Thromboplastin Time 45.9 SECONDS (22.3-36.8)
--- NOTE | 2021-02-23 14:59 | PM.PNCARD ---
Progress Note: A&P Assessment and Plan (1) E coli bacteremia: Code(s): R78.81 - Bacteremia; B96.20 - Unspecified Escherichia coli [E. coli] as the cause of diseases classified elsewhere Status: Acute Assessment and Plan: Patient admitted with sepsis. Unfortunately 2 blood cultures (as well as bile culture) were positive for E coli. The patient was admitted and promptly received antibiotics so hopefully has not infected his mechanical aortic valve. Rec LENA tmr to assess for any SBE, as SBE would make a huge difference in prognosis, FU and antibiotic duration. Will need to follow him closely in the next few weeks for any signs or symptoms of endocarditis. (2) Acute cholecystitis: Code(s): K81.0 - Acute cholecystitis Status: Acute Assessment and Plan: Patient was admitted with fevers, sepsis, lactic acidosis, acute kidney injury and acute cholecystitis. Status post percutaneous cholecystostomy 02/21/2021 and on antibiotics. Feeling better. Urinating a lot; maybe reclaiming all the IV fluids he received when septic. (3) History of aortic valve replacement: Code(s): Z95.2 - Presence of prosthetic heart valve Status: Chronic Assessment and Plan: Status post mechanical [employer] aortic valve prosthesis. This valve is MRI compatible. 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 Resume heparin. Discussed with ELIGIO Soler to resume AC. Usual home dose is 4 mg alt w/ 6 mg qd. Will give 10 mg today. Subjective Date/time seen: 02/23/21 14:59 Interval history: Chung Cornelius is a 45-year-old male whom whom we are seeing for his mechanical aortic valve replacement and anticoagulation. He was admitted on 02/20/2021 with sepsis and acute cholecystitis. He was seen by Dr. Quinn who felt he was a very high risk surgical candidate and recommended percutaneous cholecystostomy. He underwent cholecystotomy tube placement 02/21/[address] Shi. Date of service 02/23/2021: Doing well, tolerating clear liquids, will advanced this evening. Up and about in his room with much less discomfort. No shortness of breath. Some edema. Review of Systems Constitutional: Constitutional: Denies weakness ENT: Denies nasal congestion Cardiovascular: Cardiovascular: Denies chest pain, Reports pedal edema, Denies lightheadedness and Denies palpitations Respiratory: Respiratory: Denies dyspnea and Denies dyspnea on exertion Gastrointestinal: Gastrointestinal: Reports abdominal pain (Improved) Comments: Had a bowel movement Genitourinary: Genitourinary: Denies dysuria Musculoskeletal: Musculoskeletal: Reports no additional musculoskeletal complaints Integumentary/Breasts: Skin/Breast: Reports wounds (Cholecystotomy tube) Neurologic: Reports headache(s) Psychiatric: Psychiatric: Reports no additional psychiatric complaints Exam Narrative: Exam Narrative: And male up in about in his room in no distress Const: General: comfortable and no acute distress HENMT: Mouth: Yes moist mucous membranes Eyes: EOM: EOMs intact bilaterally Neck: Neck: supple Resp: Effort & Inspection: normal respiratory effort Auscultation: clear to auscultation bilaterally Cardio: Rate: regular rate Rhythm: regular rhythm Other: [place] valve click GI: Inspection: distended GI Palp: Yes Soft to palpation Other: Obese abdomen Skin: General skin exam: normal color Neuro: General: gait normal Cognition (Neuro): normal cognition Speech: normal speech Motor exam (ne
[2021-02-23] MEDS: WARFARIN (*PBKC) 10 MG TABLET PO (16:05)
[2021-02-23 17:09] LABS: Glucose Point of Care 135 (65-105)
[2021-02-23 19:55] LABS: Glucose Point of Care 145 (65-105)
[2021-02-23] MEDS: ENOXAPARIN 80 MG/0.8 ML SYRINGE 150 MG SUB-Q (20:45)
[2021-02-23 21:37] LABS: Partial Thromboplastin Time 34.3 SECONDS (22.3-36.8)
[2021-02-24] VITALS (28 sets, daily range): BP systolic 146–165; BP diastolic 86–113; PULSE 57–79; RESP 16–33; TEMP 36.4–36.9; O2SAT 96–100
[2021-02-24 04:58] LABS: INR 1.3; Prothrombin Time 16.4 Seconds (11.1-14.7)
[2021-02-24 05:12] LABS: Magnesium 1.5 mg/dL (1.6-2.3)
[2021-02-24 06:07] LABS: Glucose Point of Care 114 (65-105)
[2021-02-24 07:36] LABS: Basophils Absolute Auto 0.1 K/mm3 (0.0-0.1); Basophils Percent Auto 0.9 % (0.2-1.2); Eosinophils Absolute Auto 0.2 K/mm3 (0-0.3); Eosinophils Percent Auto 2.9 % (0-4.4); Hematocrit 34.8 % (42.0-52.0); Hemoglobin 11.6 g/dL (14.0-18.0); Immature Granulocyte Absolute 0.04 K/mm3 (0.00-0.031); Immature Granulocyte Percent A 0.5 % (0-0.5); Immature Platelet Fraction Pct 13.8 % (0.9-11.2); Lymphocytes Absolute Auto 1.09 K/mm3 (0.9-3.2); Mean Corpuscular HGB Conc 33.3 g/dl (32-36); Mean Corpuscular Hemoglobin 27.5 pg (26-34); Mean Corpuscular Volume 82.5 fl (80-100); Mean Platelet Volume 12.6 fl (7.4-10.4); Monocytes Absolute Auto 0.9 K/mm3 (0.1-0.6); Monocytes Percent Auto 11.9 % (2.6-8.5); Neutrophils Absolute Auto 5.5 K/mm3 (1.3-6.7); Neutrophils Percent Auto 69.8 % (45.5-73.1); Platelet Count Result 91 k/mm3 (150-375); Red Blood Count 4.22 M/mm3 (4.6-6.20); Red Cell Distribution Width 15.9 % (11.5-14.5); White Blood Count 7.8 K/mm3 (4.5-10.0)
[2021-02-24] MEDS: ENOXAPARIN 80 MG/0.8 ML SYRINGE 150 MG SUB-Q ×2 (08:21→21:38)
[2021-02-24] MEDS: MAGNESIUM SULF 2 GM/WATER 50ML 2 GM/50 ML BAG IVPB (08:21)
[2021-02-24 08:37] LABS: Alanine Aminotransferase 110 U/L (4-50); Alkaline Phosphatase 153 U/L (38-126); Anion Gap 4 mmol/L (8-16); Aspartate Amino Transferase 49 U/L (17-59); Bilirubin,Total 2.1 mg/dL (0.2-1.3); Blood Urea Nitrogen 10 mg/dL (9-20); Calcium 8.7 mg/dL (8.4-10.2); Carbon Dioxide 28 mmol/L (22-30); Chloride 109 mmol/L (98-107); Estimated CRCL calculation 178 ml/min; Estimated Glomerular Filt Rate > 60; Glucose 128 mg/dL (75-110); Potassium 3.7 mmol/L (3.4-5.0); Sodium 141 mmol/L (137-145)
--- NOTE | 2021-02-24 10:07 | PM.PNGS ---
Progress Note: A&P Assessment and Plan (1) Acute cholecystitis: Code(s): K81.0 - Acute cholecystitis Status: Acute Assessment and Plan: Continue low fat diet and monitor cholecystostomy tube output OK to discharge from surgical standpoint when medically stable Will follow up with patient in 1-2 weeks and plan to get cholangiogram through drain Antibiotic duration to be determined based on LENA results today (2) E coli bacteremia: Code(s): R78.81 - Bacteremia; B96.20 - Unspecified Escherichia coli [E. coli] as the cause of diseases classified elsewhere Status: Acute Assessment and Plan: LENA planned by Cardiology (3) Abnormal liver function tests: Code(s): R94.5 - Abnormal results of liver function studies Status: Acute (4) Sepsis: Qualifiers: Sepsis type: sepsis due to unspecified organism Sepsis acute organ dysfunction status: unspecified Qualified Code(s): A41.9 - Sepsis, unspecified organism Code(s): A41.9 - Sepsis, unspecified organism Status: Acute (5) History of aortic valve replacement: Code(s): Z95.2 - Presence of prosthetic heart valve Status: Chronic Assessment and Plan: On therapeutic Lovenox HIT panel ordered due to low platelets while on heparin gtt (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 NPO this AM for LENA scheduled today. Bile bag draining without any issues. Exam GI: Inspection: other (bile bag with clear appearing bile) GI Palp: Yes Tenderness to palpation present (GI) (around drain) and No Guarding due to palpation present (GI) Objective Data Vital Signs Vital Signs: Vital Signs - 24 hr 02/23/21 12:00 02/23/21 12:19 02/23/21 14:00 Temperature 36.7 C Pulse Rate 76 71 76 Respiratory Rate 22 H Blood Pressure 142/88 H Pulse Oximetry 98 02/23/21 16:00 02/23/21 17:09 02/23/21 18:00 Temperature 36.2 C L Pulse Rate 70 73 68 Respiratory Rate 22 H Blood Pressure 132/87 Pulse Oximetry 98 02/23/21 19:26 02/23/21 20:00 02/23/21 22:00 Temperature 36.3 C L Pulse Rate 74 71 64 Respiratory Rate 22 H Blood Pressure 138/88 Pulse Oximetry 96 02/23/21 23:29 02/24/21 00:00 02/24/21 02:00 Temperature 36.4 C Pulse Rate 69 69 59 L Respiratory Rate 18 Blood Pressure 139/84 Pulse Oximetry 97 02/24/21 04:00 02/24/21 06:00 02/24/21 07:30 Temperature 36.4 C Pulse Rate 62 57 L Respiratory Rate 18 Blood Pressure 147/87 H Pulse Oximetry 96 96 02/24/21 07:56 02/24/21 08:00 02/24/21 10:00 Temperature 36.9 C Pulse Rate 63 58 L 68 Respiratory Rate 16 Blood Pressure 146/89 H Pulse Oximetry 96 Intake/Output Intake/Output: Intake & Output 02/21/21 02/22/21 02/23/21 02/24/21 23:59 23:59 23:59 23:59 Intake Total 3882 3670 3230 450 Output Total 640 3500 2680 1345 Balance 3242 170 550 -895 Meds/Results Medications: Active Medications Generic Name Dose Route Start Last Admin Trade Name Freq PRN Reason Stop Dose Admin Dextrose 12.5 gm 02/21/21 04:26 Dextrose 50% 25 Gm/50 Ml Syringe IV PUSH PRN PRN Hypoglycemia Protocol Enoxaparin Sodium 150 mg 02/23/21 21:00 02/24/21 08:21 Enoxaparin 80 Mg/0.8 Ml Syringe SUB-Q 150 mg Q12HR YONATAN Administration Glucagon 1 mg 02/21/21 04:26 Glucagon For Inj 1 Mg Vial IM PRN PRN Hypoglycemia Protocol Glucose 15 gm 02/21/21 04:26 Glucose Oral Gel 15 Gm Of Glucse In 37.5 Gm Tube PO PRN PRN Hypoglycemia Protocol Hydralazine HCl 10 mg 02/21/21 04:30 Hydralazine Hcl 20 Mg/Ml Vial IV PUSH Q8H PRN Blood Pressure - High Hydromorphone HCl 0.5 mg 02/21/21 11:00 0
--- NOTE | 2021-02-24 10:33 | WPDMODSED ---
Moderate Sedation Note-Pt Data Patient Data Diagnosis: History of mechanical aortic valve replacement, bacteremia, rule out SBE Present Complaint: Bacteremia, rule out SBE Procedure to be performed/Plan: Conscious sedation Transesophageal echo Allergies Allergy/AdvReac Type Severity Reaction Status Date / Time No Known Allergies Allergy Verified 02/20/21 22:39 Home Medications Medication Instructions Recorded Confirmed Type aspirin 81 mg chewable tablet 81 mg PO DAILY 03/01/20 02/20/21 History lisinopril 20 mg tablet 40 mg PO DAILY 03/01/20 02/20/21 History metoprolol tartrate 50 mg tablet 100 mg PO Q12H 03/01/20 02/20/21 History warfarin 2 mg tablet 6 mg PO EVERY OTHER DAY 03/01/20 02/20/21 History atorvastatin 40 mg tablet 40 mg PO DAILY 03/19/20 02/20/21 History metformin 1,000 mg tablet 1,000 mg PO BID #180 tablet 12/23/20 02/20/21 Rx warfarin 4 mg tablet 4 mg PO EVERY OTHER DAY 12/23/20 02/20/21 History Current Medications: Active Medications Dextrose (Dextrose 50% 25 Gm/50 Ml Syringe) 12.5 gm IV PUSH PRN PRN; Protocol PRN Reason: Hypoglycemia Enoxaparin Sodium (Enoxaparin 80 Mg/0.8 Ml Syringe) 150 mg SUB-Q Q12HR [facility] [place] Last Admin: 02/24/21 08:21 Dose: 150 mg Documented by: Glucagon (Glucagon For Inj 1 Mg Vial) 1 mg IM PRN PRN; Protocol PRN Reason: Hypoglycemia Glucose (Glucose Oral Gel 15 Gm Of Glucse In 37.5 Gm Tube) 15 gm PO PRN PRN; Protocol PRN Reason: Hypoglycemia Hydralazine HCl (Hydralazine Hcl 20 Mg/Ml Vial) 10 mg IV PUSH Q8H PRN PRN Reason: Blood Pressure - High Hydromorphone HCl (Hydromorphone Hcl Inj (*Crx) 1 Mg/Ml Syr) 0.5 mg IV PUSH Q2H PRN PRN Reason: Pain Rated 7-10 Last Admin: 02/22/21 03:20 Dose: 0.5 mg Documented by: Piperacillin/Tazobactam/Dextrose (Zosyn 3.375 Gm/D5w 50ml Pm) 3.375 gm in 50 mls @ 100 mls/hr IVPB Q6HR YONATAN Last Admin: 02/24/21 05:59 Dose: 100 mls/hr Documented by: Dextrose (Dextrose 5% 1,000 Ml) 1,000 mls @ 100 mls/hr IVPB PRN PRN; Protocol PRN Reason: Hypoglycemia Insulin Aspart (Insulin Aspart (*Bkc) 100 Units/Ml) 2 - 5 units SUB-Q Q6HR YONATAN; Protocol Last Admin: 02/24/21 06:06 Dose: Not Given Documented by: Ondansetron HCl (Ondansetron Inj 4 Mg/2 Ml Vial) 4 mg IV PUSH Q4H PRN PRN Reason: Nausea Last Admin: 02/21/21 11:35 Dose: 4 mg Documented by: Sedation/Anesthesia: No previous sedation/anesthesia problems (including family history). [facility] Past Medical History Medical History Ascending aortic aneurysm CT chest in February 2020 measured ascending aortic aneurysm of 5.1 cm. 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 He has 1 child, Nadia. His is the durable power workers compensation defense attorney for healthcare. He is a full code. The patient occasionally uses alcohol but only socially. He does not use a
--- NOTE | 2021-02-24 10:47 | PC.NURSE ---
Patient to [facility] for LENA.
--- NOTE | 2021-02-24 11:40 | PM.OP ---
Procedure Note - Brief Procedure Note - Brief Date of procedure: 02/24/21 Pre-op diagnosis: Acute Cholecystitis Bacteremia, history of mechanical prosthetic aortic valve, rule out SBE Post-op diagnosis: same Procedure performed: Conscious sedation Transesophageal echo Description of procedure: Uneventful procedure Surgeon: Karmen Cervantes MD Findings: No vegetation seen
--- NOTE | 2021-02-24 11:41 | WPDTEECHO ---
LENA TransEsophageal Echocardiogram Date of procedure: 02/24/21 Procedure Type: Conscious sedation Transesophageal echo Diagnosis: History of mechanical aortic valve replacement, admitted with acute cholecystitis and now with bacteremia, rule out SBE Indications: Rule out SBE Image Quality: Good Findings: Conscious sedation: Assessment: The patient has no history of anesthesia problems. The patient's oropharynx is clear. The patient was deemed to be a good candidate for conscious sedation. The patient had continuous hemodynamic and oximetric monitoring during the procedure. Start time: 1107 Completion time: 1124 Total conscious sedation time: 17 minutes Medications Used: Versed 4 mg, fentanyl 75 mcg IV push Trained observer: Radha Raphael RN Outcome: The patient tolerated the procedure well with no complications. Procedure: After informed consent the patient had Hurricaine spray the hypopharynx. The patient had conscious sedation as described above. The transesophageal echo probe was introduced in the esophagus without difficulty. Imaging was obtained in multiplane views. Agitated saline was injected to evaluate for intracardiac shunting. The patient tolerated the procedure well with no complications. Findings: The left atrium was mildly enlarged. There is no thrombus present in the left atrium or left atrial appendage. The atrial septum appeared intact. Mitral valve appeared normal, with no stenosis or prolapse. The left ventricle had had normal size and thickness with moderate global hypokinesis. The ejection fraction is estimated to be: 40-45%. The aortic root was normal. The mechanical prosthetic aortic valve a good excursion of the leaflets and was a normal appearing valve. There were no vegetations noted. The sinus of Valsalva was dilated at 5.4 cm, the ascending aorta was dilated at 4.9 cm, but the aortic arch and descending thoracic aorta were normal. The right atrium, tricuspid valve, right ventricle, pulmonic valve and pulmonic artery were all normal. There is no pericardial effusion. When agitated saline was injected intravenously there was no evidence of intracardiac shunting. Colorflow Doppler Findings: Mild to moderate mitral regurgitation, mild tricuspid insufficiency, no evidence of aortic insufficiency noted. Conclusions: Normally functioning mechanical aortic valve replacement No vegetations seen Moderate left ventricular dysfunction, EF 40% Mild to moderate mitral regurgitation Mild tricuspid regurgitation Mildly dilated Sinuses of Valsalva and ascending aorta Recommendations: Follow patient closely as OPT for any signs/sx of SBE. Resume usual meds for HTN adn cardiomyopathy.
--- NOTE | 2021-02-24 13:00 | PC.NURSE ---
Patient returned to room following LENA. Report received from ALLEN Bishop.
--- NOTE | 2021-02-24 13:01 | PM.IMPN ---
Progress Note: A&P Assessment and Plan (1) Acute cholecystitis: Code(s): K81.0 - Acute cholecystitis Status: Acute Assessment and Plan: Sudden onset right upper abdominal pain. CT findings consistent with acute cholecystitis. Continue Zosyn (day 1). General surgery input appreciated. Anticipate possible perc cholecystostomy tube placement today. 02/24/21 13:01 Continue Zosyn (day 1). General surgery input appreciated. Anticipate possible perc cholecystostomy tube placement today. 02/22 patient is a 45-year-old male status post aortic valve replacement on Coumadin for anticoagulation, he presented emergency department with a complaint of right upper quadrant pain he rated the pain 10/10 upon arrival, his lactic acid was elevated to 5, CT scan of abdomen as well as abdominal ultrasound showed acute cholecystitis however patient was also septic, was started on Zosyn, hydrated, and he was seen by surgery team and patient deemed high risk with surgery with sepsis and with chronic anticoagulation with Coumadin, Coumadin was put on hold and was given FFP it started heparin, surgery team recommended cholecystostomy tube placement. Patient was seen IR and the tube was placed and currently is draining bile, oral patient's symptoms improved his lactic acid is close to normal, patient is clinically better will continue to monitor and further recommendation to follow. 02/23 today patient is sitting in the chair, on 02/22 patient was seen by surgery service started the patient on clear liquid and is tolerating, patient was also seen by Cardiology and stopped heparin drip as his INR was 2.4 however this morning his INR is 1.3 patient with a mechanical aortic valve will resume heparin drip and start the patient on Coumadin will monitor INR. Patient will be seen by surgery service and further recommendation to follow, patient white counts are trending down bile culture no growth so far, culture is grow Gram-negative bacilli pending identification and sensitivity, continue Zosyn and and adjust antibiotic according to the culture. 02/24 patient with aortic mechanical valve on Coumadin subtherapeutic INR bridged with Lovenox, bile and blood culture are growing E coli being treated with Zosyn, will follow-up on sensitivity, seen by cardiology suspicion for vegetation along the aortic valve, patient had LENA aortic valve is normally functioning and there is no vegetation his EF is 40%, will continue to bridge patient with Lovenox and monitor INR and further recommendation to follow. Patient was seen by his surgeon continue low-fat diet, instructed to monitor his cholecystostomy tube output and surgeon has signed off and will follow-up in 1-2 weeks as outpatient further recommended, will continue present managed patient seen by doctor of osteopathy and further recommendation to follow (2) Sepsis: Qualifiers: Sepsis type: sepsis due to unspecified organism Sepsis acute organ dysfunction status: unspecified Qualified Code(s): A41.9 - Sepsis, unspecified organism Code(s): A41.9 - Sepsis, unspecified organism Status: Acute Assessment and Plan: Evident by fever, tachycardia. Lactic acid up to 5.2. Suspected source is acute cholecystitis. Continue IV fluids while monitoring fluid status closely given his valve history. Ice packs and cooling blanket for fever. Not able to take ibuprofen due to his coumadin and renal function, will attempt to avoid too much tylenol given his transaminitis. Continue antibiotics as above. Ordered blood cultures this morning although abx have already been initiated. Monitor renal function, vital signs, and urine output closely. (3) Abnormal liver function tests: Code(s): R94.5 - Abnormal results of liver function studies Status: Acute Assessment and Plan: LFTs markedly elevated on arrival, trending down this morning. Lyndsey
[2021-02-24 13:11] LABS: Glucose Point of Care 90 (65-105)
[2021-02-24 17:20] LABS: Glucose Point of Care 122 (65-105)
[2021-02-24] MEDS: WARFARIN (*PBKC) 3 MG TABLET 6 MG PO (21:37)
[2021-02-24] MEDS: METOPROLOL TARTRATE 50 MG TAB 100 MG PO (21:37)
[2021-02-25] VITALS (18 sets, daily range): BP systolic 124–174; BP diastolic 54–93; PULSE 46–63; RESP 16–20; TEMP 36–37.2; O2SAT 92–98
[2021-02-25 00:06] LABS: Glucose Point of Care 102 (65-105)
[2021-02-25 04:56] LABS: Basophils Absolute Auto 0.1 K/mm3 (0.0-0.1); Basophils Percent Auto 0.8 % (0.2-1.2); Eosinophils Absolute Auto 0.3 K/mm3 (0-0.3); Eosinophils Percent Auto 3.4 % (0-4.4); Hemoglobin 11.5 g/dL (14.0-18.0); Immature Granulocyte Absolute 0.05 K/mm3 (0.00-0.031); Immature Granulocyte Percent A 0.6 % (0-0.5); Lymphocytes Absolute Auto 1.48 K/mm3 (0.9-3.2); Lymphocytes Percent Auto 17.1 % (18.3-44.2); Mean Corpuscular HGB Conc 32.9 g/dl (32-36); Mean Corpuscular Hemoglobin 27.1 pg (26-34); Mean Corpuscular Volume 82.5 fl (80-100); Mean Platelet Volume 12.3 fl (7.4-10.4); Monocytes Absolute Auto 1.1 K/mm3 (0.1-0.6); Monocytes Percent Auto 12.4 % (2.6-8.5); Neutrophils Absolute Auto 5.7 K/mm3 (1.3-6.7); Neutrophils Percent Auto 65.7 % (45.5-73.1); Platelet Count Result 105 k/mm3 (150-375); Red Blood Count 4.24 M/mm3 (4.6-6.20); Red Cell Distribution Width 15.7 % (11.5-14.5); White Blood Count 8.6 K/mm3 (4.5-10.0)
[2021-02-25 05:05] LABS: INR 1.7; Prothrombin Time 20.6 Seconds (11.1-14.7)
[2021-02-25 05:09] LABS: Alanine Aminotransferase 111 U/L (4-50); Albumin Level 3.2 g/dL (3.5-5.1); Alkaline Phosphatase 156 U/L (38-126); Anion Gap 3 mmol/L (8-16); Aspartate Amino Transferase 59 U/L (17-59); Bilirubin,Total 1.6 mg/dL (0.2-1.3); Blood Urea Nitrogen 10 mg/dL (9-20); Calcium 8.2 mg/dL (8.4-10.2); Carbon Dioxide 26 mmol/L (22-30); Chloride 109 mmol/L (98-107); Estimated CRCL calculation 178 ml/min; Estimated Glomerular Filt Rate > 60; Glucose 112 mg/dL (75-110); Magnesium 1.6 mg/dL (1.6-2.3); Potassium 3.9 mmol/L (3.4-5.0); Sodium 138 mmol/L (137-145)
[2021-02-25 06:29] LABS: Glucose Point of Care 115 (65-105)
[2021-02-25] MEDS: METOPROLOL TARTRATE 50 MG TAB 100 MG PO ×2 (08:48→20:13)
[2021-02-25] MEDS: lisinopriL 20 MG TABLET 40 MG PO (08:48)
--- NOTE | 2021-02-25 08:48 | PM.PNCARD ---
Progress Note: A&P Additional Plan 45-year-old man with: Mechanical aortic valve replacement admitted to the hospital because of acute cholecystitis. Patient now has gallbladder drain in place and is doing well clinically. Being placed back on anticoagulation with Coumadin. Patient should be anticoagulated with Lovenox until INR is at least 2.0. 6 mg of Coumadin is ordered for today. Recommend 5 mg daily at time of discharge. Nick Randolph MD [facility] Subjective Date/time seen: Date of service: 02/25/21 08:48 Interval history: Chung Cornelius is a 45-year-old male whom whom we are seeing for his mechanical aortic valve replacement and anticoagulation. He was admitted on 02/20/2021 with sepsis and acute cholecystitis. He was seen by Dr. Quinn who felt he was a very high risk surgical candidate and recommended percutaneous cholecystostomy. He underwent cholecystotomy tube placement 02/21/[address] Shi. Date of service 02/24/2021: Patient is resting comfortably seated in the chair in his room. No cardiovascular complaints. Discussed today's INR results and the need to delay discharge until INR is at least 2.0. Coumadin regimen discussed. Exam Const: General: comfortable and no acute distress Other: Obese white male in no apparent distress HENMT: Mouth: Yes moist mucous membranes Eyes: Sclera: sclerae normal Neck: Other: Venous distention difficult to assess given body habitus Resp: Effort & Inspection: normal respiratory effort Auscultation: clear to auscultation bilaterally Cardio: Rate: regular rate Rhythm: regular rhythm Other: Normal crisp aortic valve closure sound noted, no AI audible GI: GI Palp: Yes Soft to palpation Auscultation: normal bowel sounds Objective Data Vital Signs Vital Signs: Vital Signs - 24 hr 02/24/21 10:00 02/24/21 10:58 02/24/21 11:05 Temperature Pulse Rate 68 57 L 59 L Respiratory Rate 28 H 24 H Blood Pressure 163/113 H 147/90 H Pulse Oximetry 100 99 02/24/21 11:10 02/24/21 11:15 02/24/21 11:20 Temperature Pulse Rate 66 66 74 Respiratory Rate 23 H 33 H 21 H Blood Pressure 157/95 H 153/104 H 147/96 H Pulse Oximetry 98 100 100 02/24/21 11:25 02/24/21 11:30 02/24/21 11:45 Temperature Pulse Rate 79 79 65 Respiratory Rate 23 H 22 H 25 H Blood Pressure 155/93 H 151/92 H Pulse Oximetry 99 98 97 02/24/21 12:00 02/24/21 12:15 02/24/21 12:45 Temperature Pulse Rate 60 64 64 Respiratory Rate 23 H 21 H 18 Blood Pressure 149/99 H 154/89 H 153/96 H Pulse Oximetry 98 99 97 02/24/21 13:10 02/24/21 14:00 02/24/21 16:00 Temperature 36.4 C 36.7 C Pulse Rate 60 63 75 Respiratory Rate 17 17 Blood Pressure 165/98 H 156/91 H Pulse Oximetry 97 97 02/24/21 18:00 02/24/21 19:32 02/24/21 20:00 Temperature 36.7 C Pulse Rate 62 67 64 Respiratory Rate 17 Blood Pressure 150/86 H Pulse Oximetry 98 02/24/21 20:08 02/24/21 21:37 02/24/21 22:00 Temperature Pulse Rate 63 57 L Respiratory Rate Blood Pressure Pulse Oximetry 97 02/25/21 00:00 02/25/21 02:00 02/25/21 03:45 Temperature 37.2 C 36.3 C L Pulse Rate 63 51 L 58 L Respiratory Rate 16 16 Blood Pressure 124/83 135/73 Pulse Oximetry 97 98 02/25/21 04:00 02/25/21 06:00 Temperature Pulse Rate 46 L 46 L Respiratory Rate Blood Pressure Pulse Oximetry Intake/Output Intake/Output: Intake & Output 02/22/21 02/23/21 02/24/21 02/25/21 23:59 23:59 23:59 23:59 Intake Total 3670 3230 3040 1250 Output Total 3500 2680 2975 1830 Balance 170 550 65 -580 Meds/Results Medications: Active Medications Generic Name Dose Route Start Last Admin Trade Name Freq PRN Reason Stop Dose Admin Dextrose 12.5 gm 02/21/21 04:26 Dextrose 50% 25 Gm/50 Ml Syringe IV PUSH PRN PRN Hypoglycemia Protocol Enoxaparin Sodium 150 mg 02/23/21 21:00 02/24/21 21:38 Enoxaparin 80 Mg/0.8 Ml Syringe SUB-Q 150 mg Q12HR YONATAN Administr
[2021-02-25] MEDS: ENOXAPARIN 80 MG/0.8 ML SYRINGE 150 MG SUB-Q ×2 (09:53→20:13)
[2021-02-25 12:08] LABS: Glucose Point of Care 92 (65-105)
--- NOTE | 2021-02-25 12:56 | PM.PNGS ---
Progress Note: A&P Assessment and Plan (1) Acute cholecystitis: Code(s): K81.0 - Acute cholecystitis Status: Acute Assessment and Plan: Improved clinically. Continue antibiotics. OK to discharge from surgical standpoint. Will have patient follow up in 2 weeks and then eventually schedule a cholangiogram through cholecystostomy tube. (2) Abnormal liver function tests: Code(s): R94.5 - Abnormal results of liver function studies Status: Acute (3) History of aortic valve replacement: Code(s): Z95.2 - Presence of prosthetic heart valve Status: Chronic (4) nursing home current use of anticoagulant: Code(s): Z79.01 - nursing home (current) use of anticoagulants Status: Acute (5) E coli bacteremia: Code(s): R78.81 - Bacteremia; B96.20 - Unspecified Escherichia coli [E. coli] as the cause of diseases classified elsewhere Status: Acute Subjective Subjective Date/Time Seen: 02/25/21 12:56 Interval history: Pain resolved. Tolerating low fat diet. No fevers. Exam GI: Inspection: other (Cholecystostomy tube with clear bile drainage) Objective Data Vital Signs Vital Signs: Vital Signs - 24 hr 02/24/21 13:10 02/24/21 14:00 02/24/21 16:00 Temperature 36.4 C 36.7 C Pulse Rate 60 63 75 Respiratory Rate 17 17 Blood Pressure 165/98 H 156/91 H Pulse Oximetry 97 97 02/24/21 18:00 02/24/21 19:32 02/24/21 20:00 Temperature 36.7 C Pulse Rate 62 67 64 Respiratory Rate 17 Blood Pressure 150/86 H Pulse Oximetry 98 02/24/21 20:08 02/24/21 21:37 02/24/21 22:00 Temperature Pulse Rate 63 57 L Respiratory Rate Blood Pressure Pulse Oximetry 97 02/25/21 00:00 02/25/21 02:00 02/25/21 03:45 Temperature 37.2 C 36.3 C L Pulse Rate 63 51 L 58 L Respiratory Rate 16 16 Blood Pressure 124/83 135/73 Pulse Oximetry 97 98 02/25/21 04:00 02/25/21 06:00 02/25/21 08:00 Temperature 36.6 C Pulse Rate 46 L 46 L 54 L Respiratory Rate 20 Blood Pressure 163/88 H Pulse Oximetry 98 02/25/21 08:30 02/25/21 08:48 02/25/21 10:37 Temperature Pulse Rate 50 L 55 L 59 L Respiratory Rate Blood Pressure Pulse Oximetry Intake/Output Intake/Output: Intake & Output 02/22/21 02/23/21 02/24/21 02/25/21 23:59 23:59 23:59 23:59 Intake Total 3670 3230 3040 1250 Output Total 3500 2680 2975 1830 Balance 170 550 65 -580 Meds/Results Medications: Active Medications Generic Name Dose Route Start Last Admin Trade Name Freq PRN Reason Stop Dose Admin Dextrose 12.5 gm 02/21/21 04:26 Dextrose 50% 25 Gm/50 Ml Syringe IV PUSH PRN PRN Hypoglycemia Protocol Enoxaparin Sodium 150 mg 02/23/21 21:00 02/25/21 09:53 Enoxaparin 80 Mg/0.8 Ml Syringe SUB-Q 150 mg Q12HR YONATAN Administration Glucagon 1 mg 02/21/21 04:26 Glucagon For Inj 1 Mg Vial IM PRN PRN Hypoglycemia Protocol Glucose 15 gm 02/21/21 04:26 Glucose Oral Gel 15 Gm Of Glucse In 37.5 Gm Tube PO PRN PRN Hypoglycemia Protocol Hydralazine HCl 10 mg 02/21/21 04:30 Hydralazine Hcl 20 Mg/Ml Vial IV PUSH Q8H PRN Blood Pressure - High Hydromorphone HCl 0.5 mg 02/21/21 11:00 02/22/21 03:20 Hydromorphone Hcl Inj (*Crx) 1 Mg/Ml Syr IV PUSH 0.5 mg Q2H PRN Administration Pain Rated 7-10 Piperacillin/Tazobactam/Dextrose 3.375 gm in 50 mls @ 100 mls/hr 02/21/21 05:00 02/25/21 12:03 Zosyn 3.375 Gm/D5w 50ml Pm IVPB 100 mls/hr Q6HR YONATAN Administration Dextrose 1,000 mls @ 100 mls/hr 02/21/21 04:26 Dextrose 5% 1,000 Ml IVPB PRN PRN Hypoglycemia Protocol Insulin Aspart 2 - 5 units 02/22/21 18:00 02/25/21 12:04 Insulin Aspart (*Bkc) 100 Units/Ml SUB-Q Not Given Q6HR YONATAN Protocol Lisinopril 40 mg 02/25/21 09:00 02/25/21 08:48 Lisinopril 20 Mg Tablet PO 40 mg QAM [facility] Administration Metoprolol Tartrate 100 mg 02/24/21 2
--- NOTE | 2021-02-25 13:28 | PM.IMPN ---
Progress Note: A&P Assessment and Plan (1) Acute cholecystitis: Code(s): K81.0 - Acute cholecystitis Status: Acute Assessment and Plan: Sudden onset right upper abdominal pain. CT findings consistent with acute cholecystitis. 02/25/21 13:28 Continue Zosyn (day 1). General surgery input appreciated. Anticipate possible perc cholecystostomy tube placement today. 02/22 patient is a 45-year-old male status post aortic valve replacement on Coumadin for anticoagulation, he presented emergency department with a complaint of right upper quadrant pain he rated the pain 10/10 upon arrival, his lactic acid was elevated to 5, CT scan of abdomen as well as abdominal ultrasound showed acute cholecystitis however patient was also septic, was started on Zosyn, hydrated, and he was seen by surgery team and patient deemed high risk with surgery with sepsis and with chronic anticoagulation with Coumadin, Coumadin was put on hold and was given FFP it started heparin, surgery team recommended cholecystostomy tube placement. Patient was seen IR and the tube was placed and currently is draining bile, oral patient's symptoms improved his lactic acid is close to normal, patient is clinically better will continue to monitor and further recommendation to follow. 02/23 today patient is sitting in the chair, on 02/22 patient was seen by surgery service started the patient on clear liquid and is tolerating, patient was also seen by Cardiology and stopped heparin drip as his INR was 2.4 however this morning his INR is 1.3 patient with a mechanical aortic valve will resume heparin drip and start the patient on Coumadin will monitor INR. Patient will be seen by surgery service and further recommendation to follow, patient white counts are trending down bile culture no growth so far, culture is grow Gram-negative bacilli pending identification and sensitivity, continue Zosyn and and adjust antibiotic according to the culture. 02/24 patient with aortic mechanical valve on Coumadin subtherapeutic INR bridged with Lovenox, bile and blood culture are growing E coli being treated with Zosyn, will follow-up on sensitivity, seen by cardiology suspicion for vegetation along the aortic valve, patient had LENA aortic valve is normally functioning and there is no vegetation his EF is 40%, will continue to bridge patient with Lovenox and monitor INR and further recommendation to follow. Patient was seen by his surgeon continue low-fat diet, instructed to monitor his cholecystostomy tube output and surgeon has signed off and will follow-up in 1-2 weeks as outpatient further recommended, will continue present managed patient seen by section plotter operator and further recommendation to follow. 02/25 today patient states feeling much better able to tolerate his diet without any complaint abdominal pain nausea or vomiting fever or chills, patient is seen by surgery service and patient is clinically stable can be discharged home on oral antibiotic from surgical standpoint, however patient is INR is 1.7 and been bridge with Lovenox seen by cardiology recommending to monitor patient until his INR is 2 also recommended to continue warfarin 6 mg q.day however upon this may reduced on to 5 mg q.day, continue to monitor patient will have a PT OT evaluate the patient and further recommendation to follow. (2) Sepsis: Qualifiers: Sepsis type: sepsis due to unspecified organism Sepsis acute organ dysfunction status: unspecified Qualified Code(s): A41.9 - Sepsis, unspecified organism Code(s): A41.9 - Sepsis, unspecified organism Status: Acute Assessment and Plan: Evident by fever, tachycardia. Lactic acid up to 5.2. Suspected source is acute cholecystitis. Continue IV fluids while monitoring fluid status closely given his valve history. Ice packs and cooling blanket for fever. Not able to take ibuprofen due to his coumadin and renal function, will attempt
[2021-02-25 14:29] LABS: Heparin Induced Platelet Antib Negative (Negative)
[2021-02-25 17:17] LABS: Glucose Point of Care 94 (65-105)
[2021-02-25] MEDS: WARFARIN (*PBKC) 3 MG TABLET 6 MG PO (17:42)
[2021-02-26] VITALS (16 sets, daily range): BP systolic 121–170; BP diastolic 81–89; PULSE 44–79; RESP 14–16; TEMP 36–36.6; O2SAT 93–98
[2021-02-26 00:12] LABS: Glucose Point of Care 110 (65-105)
[2021-02-26 05:07] LABS: Basophils Absolute Auto 0.1 K/mm3 (0.0-0.1); Basophils Percent Auto 1.2 % (0.2-1.2); Eosinophils Absolute Auto 0.4 K/mm3 (0-0.3); Hematocrit 34.9 % (42.0-52.0); Hemoglobin 11.6 g/dL (14.0-18.0); Immature Granulocyte Absolute 0.29 K/mm3 (0.00-0.031); Immature Granulocyte Percent A 3.1 % (0-0.5); Lymphocytes Absolute Auto 1.99 K/mm3 (0.9-3.2); Mean Corpuscular HGB Conc 33.2 g/dl (32-36); Mean Corpuscular Hemoglobin 26.7 pg (26-34); Mean Corpuscular Volume 80.2 fl (80-100); Mean Platelet Volume 11.8 fl (7.4-10.4); Monocytes Percent Auto 10.4 % (2.6-8.5); Neutrophils Absolute Auto 5.7 K/mm3 (1.3-6.7); Neutrophils Percent Auto 60.3 % (45.5-73.1); Nucleated Red Blood Cells Perc 0.3 % (0.0-0.2); Platelet Count Result 142 k/mm3 (150-375); Red Blood Count 4.35 M/mm3 (4.6-6.20); Red Cell Distribution Width 15.6 % (11.5-14.5); White Blood Count 9.5 K/mm3 (4.5-10.0)
[2021-02-26 05:16] LABS: INR 1.8; Prothrombin Time 21.9 Seconds (11.1-14.7)
[2021-02-26 05:20] LABS: Alanine Aminotransferase 124 U/L (4-50); Albumin Level 3.4 g/dL (3.5-5.1); Alkaline Phosphatase 171 U/L (38-126); Anion Gap 6 mmol/L (8-16); Aspartate Amino Transferase 68 U/L (17-59); Bilirubin,Total 1.2 mg/dL (0.2-1.3); Blood Urea Nitrogen 12 mg/dL (9-20); Calcium 8.8 mg/dL (8.4-10.2); Carbon Dioxide 25 mmol/L (22-30); Chloride 110 mmol/L (98-107); Estimated CRCL calculation 141 ml/min; Estimated Glomerular Filt Rate > 60; Glucose 130 mg/dL (75-110); Magnesium 1.8 mg/dL (1.6-2.3); Potassium 3.7 mmol/L (3.4-5.0); Sodium 141 mmol/L (137-145)
[2021-02-26] MEDS: lisinopriL 20 MG TABLET 40 MG PO (08:33)
[2021-02-26] MEDS: METOPROLOL TARTRATE 50 MG TAB 100 MG PO ×2 (08:34→20:31)
[2021-02-26] MEDS: ENOXAPARIN 80 MG/0.8 ML SYRINGE 150 MG SUB-Q ×2 (08:34→20:31)
[2021-02-26 12:01] LABS: Glucose Point of Care 135 (65-105)
--- NOTE | 2021-02-26 12:40 | PM.PNCARD ---
Progress Note: A&P Assessment and Plan (1) E coli bacteremia: Code(s): R78.81 - Bacteremia; B96.20 - Unspecified Escherichia coli [E. coli] as the cause of diseases classified elsewhere Status: Acute Assessment and Plan: Patient admitted with sepsis. Unfortunately 2 blood cultures (as well as bile culture) were positive for E coli. Mir was negative for vegetations which is reassuring. Will need to follow him closely in the next few weeks for any signs or symptoms of endocarditis. (2) Acute cholecystitis: Code(s): K81.0 - Acute cholecystitis Status: Acute Assessment and Plan: Status post percutaneous cholecystostomy 02/21/2021 and on antibiotics. Feeling a lot better better. Still on IV antibiotics. (3) History of aortic valve replacement: Code(s): Z95.2 - Presence of prosthetic heart valve Status: Chronic Assessment and Plan: Status post mechanical [employer] aortic valve prosthesis. This valve is MRI compatible. (4) skilled nursing current use of anticoagulant: Code(s): Z79.01 - skilled nursing (current) use of anticoagulants Status: Acute Assessment and Plan: INR goal is 2.0-3.0 No need for heparin if INR > 2.0 Usual home dose is 4 mg alt w/ 6 mg qd. Received 10 mg then 6 mg and 6 mg over the last 3 days. 6 mg again today. Patient is willing to give himself home Lovenox. If he does not need IV antibiotics any longer we can discharge him today with Lovenox and he can check his home INRs, and call me with results so we can determine how long to continue Lovenox. Reviewed with Dr. Leal, because of sepsis, prefer 7 days of IV antibiotics, so hopefully discharge tmr and hopefully his INR will be therapeutic; if not then home Lovenox? Subjective Date/time seen: 02/26/21 12:40 Interval history: Chung Cornelius is a 45-year-old male whom whom we are seeing for his mechanical aortic valve replacement and anticoagulation. He was admitted on 02/20/2021 with sepsis and acute cholecystitis. He was seen by Dr. Quinn who felt he was a very high risk surgical candidate and recommended percutaneous cholecystostomy. He underwent cholecystotomy tube placement 02/21/[address] Shi. He was placed on a heparin drip but developed low platelets so switched off that to Lovenox. However heparin-induced platelet antibody was negative. He was found to have E coli bacteremia. 02/24/2021: MIR showed no vegetations. 02/25/2021: Patient is resting comfortably seated in the chair in his room. No cardiovascular complaints. Discussed today's INR results and the need to delay discharge until INR is at least 2.0. Coumadin regimen discussed. Date of service 02/26/2021: Patient is comfortable but very disappointed that his INR was only 1.8 today. Eating well, minimal discomfort from his gallbladder, less puffy, no shortness of breath. Spontaneously diuresing. Has a home INR monitor. Review of Systems Constitutional: Constitutional: Reports no additional constitutional complaints ENT: Reports system reviewed and no additional complaints, except as documented Cardiovascular: Cardiovascular: Denies chest pain, Denies pedal edema and Denies palpitations Respiratory: Respiratory: Denies dyspnea and Denies dyspnea on exertion Gastrointestinal: Gastrointestinal: Reports abdominal pain (Minimal discomfort) Genitourinary: Genitourinary: Reports no additional male genitourinary complaints Musculoskeletal: Musculoskeletal: Reports no additional musculoskeletal complaints Integumentary/Breasts: Skin/Breast: Denies rash Neurologic: Reports system reviewed and no additional complaints, except as documented Psychiatric: Psychiatric: Reports no additional psychiatric complaints Exam Narrative: Exam Narra
--- NOTE | 2021-02-26 15:24 | PM.IMPN ---
Progress Note: A&P Assessment and Plan (1) Acute cholecystitis: Code(s): K81.0 - Acute cholecystitis Status: Acute Assessment and Plan: Sudden onset right upper abdominal pain. CT findings consistent with acute cholecystitis. 02/26/21 15:24 Continue Zosyn (day 1). General surgery input appreciated. Anticipate possible perc cholecystostomy tube placement today. 02/22 patient is a 45-year-old male status post aortic valve replacement on Coumadin for anticoagulation, he presented emergency department with a complaint of right upper quadrant pain he rated the pain 10/10 upon arrival, his lactic acid was elevated to 5, CT scan of abdomen as well as abdominal ultrasound showed acute cholecystitis however patient was also septic, was started on Zosyn, hydrated, and he was seen by surgery team and patient deemed high risk with surgery with sepsis and with chronic anticoagulation with Coumadin, Coumadin was put on hold and was given FFP it started heparin, surgery team recommended cholecystostomy tube placement. Patient was seen IR and the tube was placed and currently is draining bile, oral patient's symptoms improved his lactic acid is close to normal, patient is clinically better will continue to monitor and further recommendation to follow. 02/23 today patient is sitting in the chair, on 02/22 patient was seen by surgery service started the patient on clear liquid and is tolerating, patient was also seen by Cardiology and stopped heparin drip as his INR was 2.4 however this morning his INR is 1.3 patient with a mechanical aortic valve will resume heparin drip and start the patient on Coumadin will monitor INR. Patient will be seen by surgery service and further recommendation to follow, patient white counts are trending down bile culture no growth so far, culture is grow Gram-negative bacilli pending identification and sensitivity, continue Zosyn and and adjust antibiotic according to the culture. 02/24 patient with aortic mechanical valve on Coumadin subtherapeutic INR bridged with Lovenox, bile and blood culture are growing E coli being treated with Zosyn, will follow-up on sensitivity, seen by cardiology suspicion for vegetation along the aortic valve, patient had LENA aortic valve is normally functioning and there is no vegetation his EF is 40%, will continue to bridge patient with Lovenox and monitor INR and further recommendation to follow. Patient was seen by his surgeon continue low-fat diet, instructed to monitor his cholecystostomy tube output and surgeon has signed off and will follow-up in 1-2 weeks as outpatient further recommended, will continue present managed patient seen by ready mix truck driver and further recommendation to follow. 02/25 today patient states feeling much better able to tolerate his diet without any complaint abdominal pain nausea or vomiting fever or chills, patient is seen by surgery service and patient is clinically stable can be discharged home on oral antibiotic from surgical standpoint, however patient is INR is 1.7 and been bridge with Lovenox seen by cardiology recommending to monitor patient until his INR is 2 also recommended to continue warfarin 6 mg q.day however upon this may reduced on to 5 mg q.day, continue to monitor patient will have a PT OT evaluate the patient and further recommendation to follow. 02/26 today patient is clinically stable, his INR is 1.8, unable to discharge him however patient bile and blood cultures are positive for E coli he will need minimum of 7 days of IV antibiotics which he will complete tomorrow if his INR is close to 2 will going discharge him. (2) Sepsis: Qualifiers: Sepsis type: sepsis due to unspecified organism Sepsis acute organ dysfunction status: unspecified Qualified Code(s): A41.9 - Sepsis, unspecified organism Code(s): A41.9 - Sepsis, unspecified organism Status: Acute Assessment and Plan: Evident by fever, tachycardia. Lactic acid up
[2021-02-26] MEDS: WARFARIN (*PBKC) 3 MG TABLET 6 MG PO (17:39)
[2021-02-26 18:04] LABS: Glucose Point of Care 147 (65-105)
[2021-02-26 21:22] LABS: Glucose Point of Care 116 (65-105)
[2021-02-27] VITALS (11 sets, daily range): BP systolic 138–154; BP diastolic 56–91; PULSE 45–58; RESP 12–22; TEMP 36.1–36.6; O2SAT 94–96
[2021-02-27] MEDS: hydrALAZINE HCL 20 MG/ML VIAL 10 MG IV PUSH (00:11)
[2021-02-27 04:28] LABS: Basophils Absolute Auto 0.1 K/mm3 (0.0-0.1); Basophils Percent Auto 1.1 % (0.2-1.2); Eosinophils Absolute Auto 0.5 K/mm3 (0-0.3); Eosinophils Percent Auto 4.4 % (0-4.4); Hematocrit 38.5 % (42.0-52.0); Hemoglobin 12.7 g/dL (14.0-18.0); Immature Granulocyte Absolute 0.44 K/mm3 (0.00-0.031); Lymphocytes Absolute Auto 2.24 K/mm3 (0.9-3.2); Lymphocytes Percent Auto 20.5 % (18.3-44.2); Mean Corpuscular Volume 81.9 fl (80-100); Mean Platelet Volume 11.7 fl (7.4-10.4); Monocytes Absolute Auto 1.1 K/mm3 (0.1-0.6); Monocytes Percent Auto 9.8 % (2.6-8.5); Neutrophils Absolute Auto 6.6 K/mm3 (1.3-6.7); Neutrophils Percent Auto 60.2 % (45.5-73.1); Nucleated Red Blood Cells Perc 0.3 % (0.0-0.2); Platelet Count Result 189 k/mm3 (150-375); Red Cell Distribution Width 15.9 % (11.5-14.5); White Blood Count 10.9 K/mm3 (4.5-10.0)
[2021-02-27 04:37] LABS: INR 1.9; Prothrombin Time 22.3 Seconds (11.1-14.7)
[2021-02-27 04:46] LABS: Magnesium 1.8 mg/dL (1.6-2.3)
[2021-02-27 04:56] LABS: Alanine Aminotransferase 137 U/L (4-50); Albumin Level 3.6 g/dL (3.5-5.1); Alkaline Phosphatase 173 U/L (38-126); Anion Gap 5 mmol/L (8-16); Aspartate Amino Transferase 64 U/L (17-59); Bilirubin,Total 1.1 mg/dL (0.2-1.3); Blood Urea Nitrogen 11 mg/dL (9-20); Calcium 9.1 mg/dL (8.4-10.2); Carbon Dioxide 27 mmol/L (22-30); Chloride 108 mmol/L (98-107); Estimated CRCL calculation 178 ml/min; Estimated Glomerular Filt Rate > 60; Glucose 113 mg/dL (75-110); Potassium 3.7 mmol/L (3.4-5.0); Sodium 140 mmol/L (137-145)
[2021-02-27 07:41] LABS: Glucose Point of Care 116 (65-105)
[2021-02-27] MEDS: METOPROLOL TARTRATE 50 MG TAB 100 MG PO (08:10)
[2021-02-27] MEDS: ENOXAPARIN 80 MG/0.8 ML SYRINGE 150 MG SUB-Q (08:10)
[2021-02-27] MEDS: lisinopriL 20 MG TABLET 40 MG PO (08:10)
[2021-02-27 11:38] LABS: Glucose Point of Care 122 (65-105)
[2021-02-27 12:43] LABS: INR 1.8; Prothrombin Time 21.8 Seconds (11.1-14.7)
--- NOTE | 2021-02-27 13:02 | PM.DS ---
DS: Admitting Diagnosis Admitting Diagnosis Admitting Diagnosis: Chief Complaint: Right upper quadrant pain DS: Discharge Diagnosis Discharge Diagnosis (1) Acute cholecystitis: Code(s): K81.0 - Acute cholecystitis Status: Acute Assessment and Plan: Sudden onset right upper abdominal pain. CT findings consistent with acute cholecystitis. 02/26/21 15:24 Continue Zosyn (day 1). General surgery input appreciated. Anticipate possible perc cholecystostomy tube placement today. 02/22 patient is a 45-year-old male status post aortic valve replacement on Coumadin for anticoagulation, he presented emergency department with a complaint of right upper quadrant pain he rated the pain 10/10 upon arrival, his lactic acid was elevated to 5, CT scan of abdomen as well as abdominal ultrasound showed acute cholecystitis however patient was also septic, was started on Zosyn, hydrated, and he was seen by surgery team and patient deemed high risk with surgery with sepsis and with chronic anticoagulation with Coumadin, Coumadin was put on hold and was given FFP it started heparin, surgery team recommended cholecystostomy tube placement. Patient was seen IR and the tube was placed and currently is draining bile, oral patient's symptoms improved his lactic acid is close to normal, patient is clinically better will continue to monitor and further recommendation to follow. 02/23 today patient is sitting in the chair, on 02/22 patient was seen by surgery service started the patient on clear liquid and is tolerating, patient was also seen by Cardiology and stopped heparin drip as his INR was 2.4 however this morning his INR is 1.3 patient with a mechanical aortic valve will resume heparin drip and start the patient on Coumadin will monitor INR. Patient will be seen by surgery service and further recommendation to follow, patient white counts are trending down bile culture no growth so far, culture is grow Gram-negative bacilli pending identification and sensitivity, continue Zosyn and and adjust antibiotic according to the culture. 02/24 patient with aortic mechanical valve on Coumadin subtherapeutic INR bridged with Lovenox, bile and blood culture are growing E coli being treated with Zosyn, will follow-up on sensitivity, seen by cardiology suspicion for vegetation along the aortic valve, patient had LENA aortic valve is normally functioning and there is no vegetation his EF is 40%, will continue to bridge patient with Lovenox and monitor INR and further recommendation to follow. Patient was seen by his surgeon continue low-fat diet, instructed to monitor his cholecystostomy tube output and surgeon has signed off and will follow-up in 1-2 weeks as outpatient further recommended, will continue present managed patient seen by advertising intern and further recommendation to follow. 02/25 today patient states feeling much better able to tolerate his diet without any complaint abdominal pain nausea or vomiting fever or chills, patient is seen by surgery service and patient is clinically stable can be discharged home on oral antibiotic from surgical standpoint, however patient is INR is 1.7 and been bridge with Lovenox seen by cardiology recommending to monitor patient until his INR is 2 also recommended to continue warfarin 6 mg q.day however upon this may reduced on to 5 mg q.day, continue to monitor patient will have a PT OT evaluate the patient and further recommendation to follow. 02/26 today patient is clinically stable, his INR is 1.8, unable to discharge him however patient bile and blood cultures are positive for E coli he will need minimum of 7 days of IV antibiotics which he will complete tomorrow if his INR is close to 2 will going discharge him. (2) Sepsis: Qualifiers: Sepsis type: sepsis due to unspecified organism Sepsis acute organ dysfunction status: unspecified Qualified Code(s): A41.9 - Sepsis, unspecified organism Code(s): A41.9 - Sepsis
== END 2021-02-27 14:35 | disposition home or self-care (01) | DRG 872 ==
LOC: ANHED 19:22 → ANH2MED 23:54 → ANHIMU 02-23 15:35 → ANH2MED 03-01 14:38 → ANHIMU 03-01 14:38
PROVIDERS: Family Medicine; Internal Medicine; Internal Medicine Cardiovascular Disease; Nurse Practitioner; Nurse Practitioner Family; Admitting Provider Internal Medicine; Emergency Provider Emergency Medicine; PCP Internal Medicine; Visit Provider Physician Assistant
PROC: B24BZZ4 Ultrasonography of Heart with Aorta, Transesophageal (ICD-10-PCS; CPT 93312; principal; 2021-02-24 10:00)
DX: A41.51 Sepsis due to Escherichia coli [E. coli] (principal); K81.0 Acute cholecystitis; N17.9 Acute kidney failure, unspecified; I42.9 Cardiomyopathy, unspecified; Z68.41 Body mass index [BMI] 40.0-44.9, adult; I10 Essential (primary) hypertension; E11.9 Type 2 diabetes mellitus without complications; E78.5 Hyperlipidemia, unspecified; Z95.2 Presence of prosthetic heart valve; Z79.01 Long term (current) use of anticoagulants; I71.2 Thoracic aortic aneurysm, without rupture; G47.33 Obstructive sleep apnea (adult) (pediatric); D69.6 Thrombocytopenia, unspecified; E66.01 Morbid (severe) obesity due to excess calories
CPT/HCPCS: 36415; 36430; 47490; 71045; 74177; 76775; 80048; 80053; 80076; 81001; 82248; 82948; 83036; 83605; 83690; 83735; 85025; 85055; 85610; 85730; 86022; 86900; 86901; 87040; 87070; 87075; 87077; 87186; 87205; 93005; 93312; 93320; 93325; 96361; 96374; 96375; 99285; A9270; J0131; J0360; J1170; J1644; J1650; J2250; J2270; J2405; J2543; J3010; J3475; J3480; J7030; J7040; J7050; J7120; P9017; Q9967

== ENCOUNTER 2021-03-01 13:49 | Outpatient (CLI) | payer BC, SELFPAY ==
--- NOTE | ~2021-03-01 | CT_ITS ---
EXAMINATION: CTA chest DATE: 03/01/2021 14:25 INDICATION: Ascending aortic aneurysm. TECHNIQUE: Computed tomographic angiography (CTA) of the chest was performed without and with 100 mL Omnipaque-350 intravenous contrast. Automated exposure control and iterative reconstruction technique were employed. The dose-length product was 2110.69 mGy-cm. Maximum intensity projection 3D-reconstru ctions of the aorta and other arteries were constructed by the technologist on a separate workstation . COMPARISON: Chest CT 02/19/2020 FINDINGS: There is no pneumonia or pleural effusion. The heart size is normal. No pericardial effusio n. There are changes of aortic valve replacement. The aorta measures 5.2 cm at the sinuses of [place] a, 4.7 cm at the sinotubular junction, 4.6 cm in the mid ascending aorta, 2.7 cm at the aortic isthmu s, and 2.9 cm in the mid descending aorta. There is mild thoracic spondylosis. IMPRESSION: 1. Stable ascending aortic aneurysm measuring up to 5.2 cm. Reviewed, dictated and finalized at location B.
== END 2021-03-01 13:50 | disposition home or self-care (01) ==
PROVIDERS: PCP Internal Medicine; Visit Provider Thoracic Surgery (Cardiothoracic Vascular Surgery)
DX: I71.4 Abdominal aortic aneurysm, without rupture (principal)
CPT/HCPCS: 71275; Q9967

== ENCOUNTER 2021-03-16 09:49 | Outpatient (CLI) | payer BC, SELFPAY ==
--- NOTE | ~2021-03-16 | XR_ITS ---
EXAMINATION: XR catheter cholangiogram DATE: 03/16/2021 11:20 INDICATION: Nondraining percutaneous cholecystostomy tube. TECHNIQUE: Multiple fluoroscopic images of the right upper quadrant were obtained during percutaneous cholangiography. A total of 15 mL Omnipaque 240 was injected into the existing percutaneous cholecys tostomy tube. Following discussion of the findings and at the direction of Dr. Quinn the cholecysto stomy tube was removed over a wire. A sterile dressing was applied. A total of 8 fluoroscopic images were obtained. The amount of fluoroscopy time used during this procedure was 0.9 minutes. COMPARISON: None. FINDINGS: The percutaneous cholecystostomy tube loop appears unfolded. Contrast injection demonstrate s extraluminal extravasation of the majority of the contrast. Thin tract of contrast is seen extendin g medially with small amount of contrast pooling, likely in the gallbladder. It is unclear whether th e tip of the catheter remains within the gallbladder or whether the contrast extends along a residual catheter tract. There is insufficient contrast opacification of the gallbladder to assess for patenc y of the cystic or common bile ducts. IMPRESSION: 1. Displacement of the previously placed cholecystostomy tube with extraluminal extravasation of the majority of injected contrast. Insufficient contrast in the gallbladder to assess for cystic or commo n duct patency. 2. Successful removal of the percutaneous cholecystostomy tube. Reviewed, dictated and finalized at location A. IMPRESSION: 1. Displacement of the previously placed cholecystostomy tube with extraluminal extravasation of the majority of injected contrast. Insufficient contrast in t he gallbladder to assess for cystic or common duct patency. 2. Successful removal of the percutaneous cholecystostomy tube.
== END 2021-03-16 09:50 | disposition home or self-care (01) ==
PROVIDERS: PCP Internal Medicine; Visit Provider Surgery
DX: K81.0 Acute cholecystitis (principal)
CPT/HCPCS: 47531; Q9966

== ENCOUNTER → 2021-03-29 04:42 | Outpatient (CLI) | payer BC, SELFPAY ==
[2021-03-29 20:06] LABS: SARS-CoV-2 RNA PCR Negative
== END ==
PROVIDERS: PCP Internal Medicine; Visit Provider Surgery
DX: Z01.812 Encounter for preprocedural laboratory examination (principal); Z20.822 Contact with and (suspected) exposure to COVID-19
CPT/HCPCS: 36415; 82150; 86850; 86900; 86901; C9803; U0003; U0005

== ENCOUNTER 2021-03-29 08:39 | Outpatient (CLI) | payer BC, SELFPAY ==
[2021-03-29 09:33] LABS: Amylase 49 U/L (30-110)
== END 2021-03-29 08:40 | disposition home or self-care (01) ==
LOC: ANHSURGERY 08:43
PROVIDERS: PCP Internal Medicine; Visit Provider Surgery
DX: Z01.812 Encounter for preprocedural laboratory examination (principal); K81.0 Acute cholecystitis
CPT/HCPCS: 36415; 82150; 86850; 86900; 86901

== ENCOUNTER 2021-04-01 02:17 | Day surgery (SDC) | payer BC, SELFPAY ==
[2021-03-21 15:23] VITALS: BMI 41.8
--- NOTE | 2021-03-31 13:06 | WPDANESEPPF ---
Anes - Initial Pre Proc Eval Procedure: Operation Date: 04/01/21 12:00 Proposed Procedures p Laparoscopic Cholecystectomy Possible Open - Hira Quinn DO Date/Time: 03/31/21 13:06 Surgeon: Hira Quinn DO Pre Op Diagnosis: acute cholecystitis Patient Data Age: 46 Gender: M Height: 1.88 m Weight: 147.72 kg Allergies Allergy/AdvReac Type Severity Reaction Status Date / Time No Known Allergies Allergy Verified 04/01/21 10:40 Home Medications Medication Instructions Recorded Confirmed Type aspirin 81 mg chewable tablet 81 mg PO QAM 03/01/20 03/21/21 History lisinopril 20 mg tablet 40 mg PO QAM 03/01/20 03/21/21 History metoprolol tartrate 50 mg tablet 100 mg PO Q12H 03/01/20 03/21/21 History warfarin 2 mg tablet 6 mg PO EVERY OTHER DAY 03/01/20 03/21/21 History atorvastatin 40 mg tablet 40 mg PO QAM 03/19/20 03/21/21 History metformin 1,000 mg tablet 1,000 mg PO BID #180 tablet 12/23/20 03/21/21 Rx warfarin 4 mg tablet 4 mg PO EVERY OTHER DAY 12/23/20 03/21/21 History furosemide [Lasix] 20 mg PO DAILY PRN 03/21/21 03/21/21 History tadalafil [Cialis] 20 mg PO DAILY PRN 03/21/21 03/21/21 History Other Studies: Echo 03/02: Findings: The left atrium was mildly enlarged. There is no thrombus present in the left atrium or left atrial appendage. The atrial septum appeared intact. Mitral valve appeared normal, with no stenosis or prolapse. The left ventricle had had normal size and thickness with moderate global hypokinesis. The ejection fraction is estimated to be: 40-45%. The aortic root was normal. The mechanical prosthetic aortic valve a good excursion of the leaflets and was a normal appearing valve. There were no vegetations noted. The sinus of Valsalva was dilated at 5.4 cm, the ascending aorta was dilated at 4.9 cm, but the aortic arch and descending thoracic aorta were normal. The right atrium, tricuspid valve, right ventricle, pulmonic valve and pulmonic artery were all normal. There is no pericardial effusion. When agitated saline was injected intravenously there was no evidence of intracardiac shunting. Colorflow Doppler Findings: Mild to moderate mitral regurgitation, mild tricuspid insufficiency, no evidence of aortic insufficiency noted. Patient hx anesthesia problems: none Family hx anesthesia problems: none [facility] Past Medical History Medical History (Updated 04/01/21 @ 10:27 by Marty Orozco MD) Ascending aortic aneurysm CT chest in February 2020 measured ascending aortic aneurysm of 5.2 cm. Bicuspid aortic valve S/p mechanical aortic valve replacement in July 2017 at [facility] CHF (congestive heart failure) ef 40-45% 03/02 Congenital heart defect Bicuspid aortic valve found when presenting with CHF in 2016 DM2 (diabetes mellitus, type 2) Essential hypertension Hyperlipidemia Morbid obesity MARY JANE (obstructive sleep apnea) Pulmonary valve disorder Surgical History Surgical History History of aortic valve replacement July 2017 mechanical aortic valve replacement after having a failed aortic valve repair History of appendectomy Open appendectomy when in 4th grade Family History Family History Mother Hypertension Father Family history of diabetes mellitus in first degree relative Family history of cholecystectomy Grandparent Diabetes mellitus Family history of coronary artery disease Social History Social History Social History: The patient lives with his and she is a durable power data collection specialist for healthcare. 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 He has 1 child, Nadia. His is the durable power data collection specialist for healthcare. He is a full code. The patient occasionally uses alcohol but only socially. He does not use any marijuana or ill
[2021-04-01] VITALS (9 sets, daily range): BP systolic 126–148; BP diastolic 75–88; PULSE 49–65; RESP 18–30; TEMP 36.2–36.6; O2SAT 95–100
[2021-04-01] MEDS: LACTATED RINGERS 1,000 ML 30 ML IV CONT ×2 (10:30→13:47)
[2021-04-01] MEDS: ACETAMINOPHEN 500 MG TABLET 1000 MG PO (10:36)
[2021-04-01] MEDS: KETOROLAC 15 MG/ML VIAL (*BKC) IV PUSH (10:36)
[2021-04-01 10:47] LABS: INR 1.1; Prothrombin Time 15.2 Seconds (11.1-14.7)
--- NOTE | 2021-04-01 11:36 | WPDHPUPDATE1 ---
History and Physical Update Update Date/Time: 04/01/21 11:36 History and Physical has been reviewed, including an updated exam of the patient. There are NO changes in the patient's condition. Risks, benefits, and alternatives have been discussed and questions answered. Patient agrees to proceed with procedure.
[2021-04-01] MEDS: ceFAZolin 3 GM/D5W 100 ML 100 ML IVPB (12:09)
[2021-04-01] MEDS: BUPIVACAINE HCL 0.5% PF 30 ML VIAL INFILTRATE (12:46)
--- NOTE | 2021-04-01 13:50 | PM.PROC ---
Procedure Note - Detailed Date of procedure: 04/01/21 Pre-op diagnosis: acute cholecystitis Post-op diagnosis: same Procedure performed: Laparoscopic Cholecystectomy Description of procedure: Procedure as well as risks, benefits, and alternatives were discussed with patient. Written consent was obtained and placed in chart prior to procedure. The patient was brought back to surgical suite. Patient was placed in supine position on operating table. Time-out was done to confirm patient and procedure. Patient was then intubated by the anesthesia department. Abdomen was prepped and draped in sterile fashion using chlorhexidine prep. 0.5% bupivacaine with epinephrine was infiltrated at each site of incision. A 5 millimeter incision was made near the umbilicus, and a 5 millimeter Optiview trocar was advanced through the abdominal layers under direct visualization. Once inside the abdominal cavity, carbon dioxide was insufflated to create a pneumoperitoneum. The camera was inserted and the abdomen was inspected. No immediate abnormalities were identified. The patient was placed in reverse Trendelenburg position and rotated slightly to the left. An 11 millimeter incision was made in the subxiphoid region, and an 11 millimeter trocar was inserted under direct visualization. Two 5 millimeter incisions were made in the right upper quadrant, and two 5 millimeter trocars were inserted under direct visualization. The gallbladder was identified and grasped at the fundus and retracted superiorly. It was then grasped at the infundibulum retracted laterally. Careful dissection around the neck of the gallbladder was performed using blunt dissection with a [place] grasper and hook electrocautery. The cystic duct was identified, and a window was created behind it. The cystic artery was also identified and a window was created behind it. The critical view of safety was identified, visualizing the cystic duct running directly into the neck of the gallbladder, and the cystic artery running directly into the wall of the gallbladder. A 5 millimeter clip tire changer was then used to place 2 clips proximally and 1 clip distally on both the cystic duct and cystic artery. They were then both transected using endoscopic scissors. Once safely away from the fabian hepatitis, the gallbladder was dissected free from the liver bed using hook electrocautery. Hemostasis was achieved along the way. The gallbladder was removed completely and then removed through the subxiphoid port. The liver bed was then inspected. Hemostasis appeared adequate, and our clips appeared secure. The area was gently irrigated with sterile saline. No other abnormalities were seen. The patient was flattened out in bed, and 1 final inspection was made around the abdominal cavity. The subxiphoid port was removed, and a Trevin Allen cone was used to approximate the fascia with an 0-Vicryl simple interrupted suture. The remaining ports were then removed under direct visualization, the camera was removed, and the pneumoperitoneum was released. The skin of the incisions was approximated using 4-0 Monocryl subcuticular sutures. Exofin glue was applied on top. The patient was then awakened from anesthesia, extubated, and transferred to recovery. Anesthesia: GETA and local (0.5% bupivicaine with epi) Surgeon: Hira Quinn DO Estimated blood loss (mL): 50 Drains: No Packing: No Pathology: yes Complications: No immediate complications Condition: stable (Patient tolerated procedure well, and is currently resting comfortably in recovery.) Disposition: same day Findings: This is a 46-year-old man who has a prior episode of acute cholecystitis and sepsis. He was on long-term anticoagulation for a mechanical aortic valve and it was too unstable for surgery, therefore underwent percutaneous cholecystostomy tube placement. He recovered from this episode wound had been doing well as an outpatient. He was sent for a c
[2021-04-01] MEDS: oxyCODONE HCL (*CRX) 5 MG TAB IR PO (15:17)
[2021-04-02 12:12] LABS: Glucose Point of Care 140 mg/dl (65-105)
== END 2021-04-01 15:45 | disposition home or self-care (01) ==
PROVIDERS: Anesthesiology; PCP Internal Medicine; Visit Provider Surgery
PROC: 0FT44ZZ Resection of Gallbladder, Percutaneous Endoscopic Approach (ICD-10-PCS; CPT 47562; principal; 2021-04-01 12:00)
DX: K81.1 Chronic cholecystitis (principal); I71.4 Abdominal aortic aneurysm, without rupture; I42.9 Cardiomyopathy, unspecified; I11.0 Hypertensive heart disease with heart failure; I50.9 Heart failure, unspecified; E11.9 Type 2 diabetes mellitus without complications; E78.5 Hyperlipidemia, unspecified; G47.33 Obstructive sleep apnea (adult) (pediatric); E66.01 Morbid (severe) obesity due to excess calories; Z68.41 Body mass index [BMI] 40.0-44.9, adult; Z95.2 Presence of prosthetic heart valve; Z79.82 Long term (current) use of aspirin; Z79.01 Long term (current) use of anticoagulants; Z79.84 Long term (current) use of oral hypoglycemic drugs
CPT/HCPCS: 47562; 36415; 82948; 85610; 88304; A9270; J0690; J1885; J2250; J2405; J2704; J2710; J3010; J7030; J7120

== ENCOUNTER 2021-04-02 03:04 | Inpatient (IN) | payer BC, SELFPAY ==
[2021-04-02] VITALS (34 sets, daily range): BP systolic 64–129; BP diastolic 44–97; PULSE 71–100; RESP 12–48; TEMP 35–37.1; O2SAT 85–100; BMI 41.0
--- NOTE | ~2021-04-02 | XR_ITS ---
EXAMINATION: XR chest 1V portable DATE: 04/02/2021 11:15 INDICATION: Respiratory failure TECHNIQUE: frontal view of the chest was obtained. COMPARISON: Chest radiograph dated 04/02/2021 FINDINGS: Mild bibasilar atelectasis. No new airspace opacities, pulmonary edema, pleural effusion or pneumotho rax. The cardiomediastinal silhouette is within normal limits for AP technique. Median sternotomy wir es and mediastinal surgical clips are seen, likely from prior coronary artery bypass grafting. IMPRESSION: 1. Mild bibasilar atelectasis. Reviewed, dictated and finalized at location A.
--- NOTE | ~2021-04-02 | CT_ITS ---
EXAMINATION: CTA chest PE abdomen pel DATE: 04/02/2021 06:43 INDICATION: Shortness of breath and chest pain TECHNIQUE: Computed tomography (CT) pulmonary angiogram of the chest was performed with 100 mL Omnipa que-350 intravenous contrast. Additional 3D reconstructions utilizing coronal maximum intensity proje ction (MIP) were performed. CT of the abdomen and pelvis was performed with intravenous contrast util izing the same contrast bolus following a short delay. Automated exposure control and iterative recon struction technique were employed. The dose-length product was 2387.23 mGy-cm. COMPARISON: CT dated 03/01/2021 and 02/20/2021 FINDINGS: Chest: Good contrast opacification of the pulmonary arteries. There is mild streak artifact from dense contr ast in the superior vena cava and right atrium. Moderate respiratory motion artifact at the lung base s weren't decreases sensitivity in the smaller basilar subsegmental pulmonary arteries. No evident pu lmonary embolism. Linear bands of discoid atelectasis in the bilateral lower lung zones most prominen t in the lower lobes. Elevation of the left hemidiaphragm. There is heart size is normal. No pericard ial effusion. Postoperative change of prior median sternotomy and aortic valve replacement. Aortic an eurysm measuring 5.0 cm at the level of the sinus of Valsalva, at the sinotubular junction and taperi ng to 2.8 cm at the aortic isthmus. Mild thoracic spondylosis. Abdomen/pelvis: There is a small amount of free intraperitoneal gas along the nondependent anterior abdominal wall co nsistent with provided history of recent cholecystectomy. Surgical clips are seen at the gallbladder fossa. There is a perihepatic hematoma with focus of active extravasation originating at the gallblad liam fossa with contrast extending inferiorly across the foramen inferior to the caudal tip of the aniceto er and into the right paracolic gutter. Liver, spleen, pancreas, bilateral adrenal glands and kidneys are normal. Additional small amount of hemoperitoneum in the deep pelvis. Diverticulum at the cecum without adjacent inflammatory change to suggest diverticulitis. The appendix is not visualized. No pe ricecal inflammatory change to suggest acute appendicitis.. No bowel obstruction. Bladder is normal. Mild lumbar levoscoliosis with mild to moderate spondylosis. IMPRESSION: 1. Changes consistent with recent cholecystectomy with hemoperitoneum and focus of active extravasati on at the gallbladder fossa. The [employer] radiologist Dr. Matt Villatoro communicated the findings of activ e extravasation with the ED physician at 7:30 AM. 2. Moderate amount of atelectasis at the bilateral lung bases. No pulmonary embolism or other acute c ardiopulmonary disease. Sensitivity is decreased in the basilar subsegmental pulmonary arteries due t o respiratory motion. 3. No significant interval change in a 5.0 cm ascending thoracic aortic aneurysm. Reviewed, dictated and finalized at location A. IMPRESSION: 1. Changes consistent with recent cholecystectomy with hemoperitoneum and focus of active extravasation at the gallbladder fossa. The [employer] radiologist Dr. Matt Villatoro communicated the findings of active extravasation with the ED physici an at 7:30 AM. 2. Moderate amount of atelectasis at the bilateral lung bases. No pulmonary emb olism or other acute cardiopulmonary disease. Sensitivity is decreased in the b asilar subsegmental pulmonary arteries due to respiratory motion. 3. No significant interval change in a 5.0 cm ascending thoracic aortic aneurys m.
--- NOTE | ~2021-04-02 | XR_ITS ---
EXAMINATION: XR abdomen/kub 1V DATE: 04/02/2021 04:03 INDICATION: Right-sided abdominal pain one day post cholecystectomy. TECHNIQUE: A supine view of the abdomen on 4 radiographs was obtained. COMPARISON: CT dated 04/02/2021 FINDINGS: Cholecystectomy clips in right upper quadrant. No dilated gas-filled loops of bowel to suggest obstru ction. Visualized portions of the lung bases are clear. Median sternotomy wires. Mild lumbar levoscol iosis with mild spondylosis. IMPRESSION: 1. Normal bowel gas pattern. Reviewed, dictated and finalized at location A.
--- NOTE | ~2021-04-02 | XR_ITS ---
EXAMINATION: XR shoulder RT min 2V DATE: 04/03/2021 08:38 INDICATION: Right shoulder pain TECHNIQUE: AP internally and externally rotated and transscapular Y views of the right shoulder were obtained. COMPARISON: None FINDINGS: Normal alignment. No fracture. Joint spaces appear relatively preserved. Soft tissues are unremarkab le. Small right lung volume. Median sternotomy wires and aortic valve repair.. IMPRESSION: Unremarkable right shoulder with no acute osseous abnormality. Reviewed, dictated and finalized at location A.
--- NOTE | ~2021-04-02 | XR_ITS ---
EXAMINATION: XR chest 1V DATE: 04/02/2021 04:03 INDICATION: Shortness of breath TECHNIQUE: frontal view of the chest was obtained. COMPARISON: Chest CT dated 04/02/2021 FINDINGS: The lungs are clear with no focal airspace opacities, pulmonary edema, pleural effusion or pneumothor ax. The cardiomediastinal silhouette is within normal limits for AP technique. Median sternotomy wire s and aortic valve repair. IMPRESSION: 1. No acute cardiopulmonary disease. Reviewed, dictated and finalized at location A.
--- NOTE | 2021-04-02 03:09 | ED.ABDPAIN ---
HPI - Abdominal Pain General Chief Complaint: Abdominal Pain Stated Complaint: abd pain Time Seen by Provider: 04/02/21 03:09 History of Present Illness HPI narrative: 46 yo morbidly obese male w/ h/o cardiac valve replacement presents on post op day #1 after cholecystectomy with abdominal pain. He had his gall bladder removed yesterday by Dr. Quinn. He says that he was doing okay initially. He took hisprescribed pain meidcation, but it is not controlling the pain. It is located in the RUQ and radiates to the right shoulder. He feels that he is not able to breath due to the pain. He denies passing gas or having a bowel movement. No nausea, vomiting, chest pain. Related Data Home Medications Medication Instructions Recorded Confirmed aspirin 81 mg chewable tablet 81 mg PO QAM 03/01/20 03/21/21 lisinopril 20 mg tablet 40 mg PO QAM 03/01/20 03/21/21 metoprolol tartrate 50 mg tablet 100 mg PO Q12H 03/01/20 03/21/21 warfarin 2 mg tablet 6 mg PO EVERY OTHER DAY 03/01/20 04/01/21 atorvastatin 40 mg tablet 40 mg PO QAM 03/19/20 03/21/21 warfarin 4 mg tablet 4 mg PO EVERY OTHER DAY 12/23/20 04/01/21 furosemide [Lasix] 20 mg PO DAILY PRN 03/21/21 03/21/21 tadalafil [Cialis] 20 mg PO DAILY PRN 03/21/21 03/21/21 Allergies Allergy/AdvReac Type Severity Reaction Status Date / Time No Known Allergies Allergy Verified 04/02/21 03:33 Review of Systems Review of Systems: All systems reviewed & are unremarkable except as noted in HPI and below Constitutional: Constitutional: Denies fever(s) ENT: Reports system reviewed and no additional complaints, except as documented Cardiovascular: Cardiovascular: Denies chest pain Respiratory: Respiratory: Reports dyspnea Gastrointestinal: Gastrointestinal: Reports abdominal pain and Denies nausea Genitourinary: Genitourinary: Reports no additional male genitourinary complaints Musculoskeletal: Musculoskeletal: Reports no additional musculoskeletal complaints Neurologic: Reports system reviewed and no additional complaints, except as documented [facility] Past Medical History Medical History Ascending aortic aneurysm CT chest in February 2020 measured ascending aortic aneurysm of 5.2 cm. Bicuspid aortic valve S/p mechanical aortic valve replacement in July 2017 at [facility] CHF (congestive heart failure) ef 40-45% 03/02 Congenital heart defect Bicuspid aortic valve found when presenting with CHF in 2016 DM2 (diabetes mellitus, type 2) Essential hypertension Hyperlipidemia Morbid obesity MARY JANE (obstructive sleep apnea) Pulmonary valve disorder Surgical History Surgical History History of aortic valve replacement July 2017 mechanical aortic valve replacement after having a failed aortic valve repair History of appendectomy Open appendectomy when in 4th grade Family History Family History Mother Hypertension Father Family history of diabetes mellitus in first degree relative Family history of cholecystectomy Grandparent Diabetes mellitus Family history of coronary artery disease Social History Social History Social History: The patient lives with his and she is a durable power state's attorney for healthcare. 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 He has 1 child, Nadia. His is the durable power state's attorney for healthcare. He is a full code. The patient occasionally uses alcohol but only socially. He does not use any marijuana or illicit drugs. He does not smoke use lifelong nonsmoker. He is of [place] descent. Smoking status: Former smoker Second hand tobacco smoke exposure: No Additional smoking assessment comments: STATES TRIED IN EARLY 20S DID NOT LIKE IT AND QUIT Alcohol intake: current Drinks per week: 6
--- NOTE | 2021-04-02 03:16 | ECG_ITS ---
Measurements Intervals [place] Rate: 78 P: 17 MS: 207 QRS: -14 QRSD: 96 T: 84 QT: 361 QTc: 413 Interpretive Statements SINUS RHYTHM BORDERLINE AV CONDUCTION DELAY LEFT VENTRICULAR HYPERTROPHY AND ST-T CHANGE BASELINE ARTIFACT- V3-V6 BORDERLINE ECG Electronically Signed On 04-02-2021 5:53:28 CDT by Evens Mehta D.O.
[2021-04-02] MEDS: MORPHINE SULFATE (*CRX) 4 MG/ML INJ IV PUSH ×3 (03:29→23:32)
[2021-04-02 03:48] LABS: Basophils Absolute Auto 0.1 K/mm3 (0.0-0.1); Basophils Percent Auto 0.5 % (0.2-1.2); Eosinophils Absolute Auto 0.3 K/mm3 (0-0.3); Eosinophils Percent Auto 1.9 % (0-4.4); Hematocrit 38.9 % (42.0-52.0); Hemoglobin 12.7 g/dL (14.0-18.0); Immature Granulocyte Absolute 0.07 K/mm3 (0.00-0.031); Immature Granulocyte Percent A 0.4 % (0-0.5); Lymphocytes Absolute Auto 1.67 K/mm3 (0.9-3.2); Mean Corpuscular HGB Conc 32.6 g/dl (32-36); Mean Corpuscular Hemoglobin 27.7 pg (26-34); Mean Corpuscular Volume 84.7 fl (80-100); Mean Platelet Volume 11.4 fl (7.4-10.4); Monocytes Absolute Auto 1.2 K/mm3 (0.1-0.6); Neutrophils Absolute Auto 13.4 K/mm3 (1.3-6.7); Neutrophils Percent Auto 80.2 % (45.5-73.1); Platelet Count Result 262 k/mm3 (150-375); Red Blood Count 4.59 M/mm3 (4.6-6.20); White Blood Count 16.7 K/mm3 (4.5-10.0)
[2021-04-02 03:57] LABS: Alanine Aminotransferase 39 U/L (4-50); Albumin Level 3.8 g/dL (3.5-5.1); Alkaline Phosphatase 56 U/L (38-126); Anion Gap 6 mmol/L (8-16); Aspartate Amino Transferase 55 U/L (17-59); Bilirubin,Total 1.3 mg/dL (0.2-1.3); Blood Urea Nitrogen 11 mg/dL (9-20); Calcium 8.8 mg/dL (8.4-10.2); Carbon Dioxide 24 mmol/L (22-30); Chloride 104 mmol/L (98-107); Estimated CRCL calculation 171 ml/min; Estimated Glomerular Filt Rate > 60; Glucose 150 mg/dL (75-110); Lactic Acid Reflex 1.5 mmol/L (0.7-2.1); Potassium 4.2 mmol/L (3.4-5.0); Sodium 134 mmol/L (137-145)
[2021-04-02 03:59] LABS: INR 1.1; Partial Thromboplastin Time 33.8 SECONDS (22.3-36.8); Prothrombin Time 15.1 Seconds (11.1-14.7)
[2021-04-02 04:09] LABS: Troponin I < 0.012 ng/mL (0.000-0.034)
[2021-04-02] MEDS: SODIUM CHLORIDE 0.9% IV 500 ML 999 ML IV CONT (04:47)
[2021-04-02] MEDS: fentaNYL CITRATE INJ (*CRX) 100 MCG/2 ML VIAL 50 MCG IV PUSH (04:48)
[2021-04-02 04:57] LABS: Base Excess ABG -0.6 mEq/l (+/-2.0); Fractional Inspired Oxygen 28 %; HCO3 ABG 24.2 mEq/l (22.0-26.0); Oxygen Content ABG 17.1 %vol (16.0-22.0); Oxygen Saturation ABG 95.2 % (95.0-100.0); Oxyhemoglobin 93.5 % THb (90.0-100.0); PCO2 ABG 40.5 mmHg (35.0-45.0); PO2 ABG 75.9 mmHg (80.0-100.0); PO2 FiO2 Ratio Arterial Blood 2.71 %; pH ABG 7.395 (7.350-7.450)
[2021-04-02 04:59] LABS: Device NASAL CANNULA; Modified Allen's Test Pass; Site Drawn RIGHT RADIAL
[2021-04-02] MEDS: SODIUM CHLORIDE 0.9% IV 1,000 ML 999 ML IV CONT (05:49)
[2021-04-02] MEDS: LACTATED RINGERS 1,000 ML 100 ML IV CONT (05:50)
[2021-04-02] MEDS: KETAMINE HCL (*CRX) 500 MG/10 ML VIAL 10 MG IV PUSH (06:35)
--- NOTE | 2021-04-02 06:54 | PC.NURSE ---
dr. ayala @ bedside , verbal order to give 20 mg of ketamine
[2021-04-02 07:10] LABS: Basophils Absolute Auto 0.1 K/mm3 (0.0-0.1); Basophils Percent Auto 0.5 % (0.2-1.2); Eosinophils Absolute Auto 0.1 K/mm3 (0-0.3); Eosinophils Percent Auto 0.6 % (0-4.4); Hematocrit 29.4 % (42.0-52.0); Hemoglobin 9.7 g/dL (14.0-18.0); Immature Granulocyte Absolute 0.14 K/mm3 (0.00-0.031); Immature Granulocyte Percent A 0.6 % (0-0.5); Lymphocytes Absolute Auto 1.22 K/mm3 (0.9-3.2); Lymphocytes Percent Auto 5.3 % (18.3-44.2); Mean Platelet Volume 11.1 fl (7.4-10.4); Monocytes Absolute Auto 1.4 K/mm3 (0.1-0.6); Monocytes Percent Auto 6.2 % (2.6-8.5); Neutrophils Absolute Auto 20.1 K/mm3 (1.3-6.7); Neutrophils Percent Auto 86.8 % (45.5-73.1); Platelet Count Result 260 k/mm3 (150-375); Red Blood Count 3.46 M/mm3 (4.6-6.20); Red Cell Distribution Width 16.2 % (11.5-14.5); White Blood Count 23.2 K/mm3 (4.5-10.0)
[2021-04-02 07:15] LABS: INR 1.3; Partial Thromboplastin Time 35.1 SECONDS (22.3-36.8); Prothrombin Time 16.4 Seconds (11.1-14.7)
--- NOTE | 2021-04-02 07:15 | PC.NURSE ---
s/p lap sidney yesterday afternoon, was released home, overnight woke up with RUQ sharp pains radiating to R shoulder. Pt tolerating Bipap (tachypneic, shallow resps), AOx4 and alert, denies N/V. Hypotensive, diaphoretic, jaundiced skin.
[2021-04-02 07:24] LABS: Anisocytosis 1+ (NORMAL); Ovalocytes 1+ (NORMAL); Platelet Estimate Adequate (Adequate)
--- NOTE | 2021-04-02 07:45 | PC.NURSE ---
First unit blood running wide open, pt tolerating fairly. Three additional units ordered
[2021-04-02] MEDS: TRANEXAMIC ACID 1,000 MG/10 ML AMPUL 1000 MG IV PUSH (07:57)
--- NOTE | 2021-04-02 07:57 | PC.NURSE ---
Dr. Hummel at bedside
--- NOTE | 2021-04-02 08:05 | PC.NURSE ---
Drs. Alamo and Lolis at bedside, pt states he received Lovenox yesterday s/p lap sidney. +diaphoretic, easily arousable, tachypneic shallow resps
--- NOTE | 2021-04-02 08:14 | PC.NURSE ---
Pt last ate a sandwich 1800 last night, took one small sip of water this am
--- NOTE | 2021-04-02 08:36 | PM.IMHP ---
H&P: HPI History of Present Illness Date/Time: 04/02/21 08:36 Pt is a 46 y/o M s/p cholecystectomy yesterday presenting to ED c/o severe RUQ/R shoulder pain. Pt noted to have progressively worsening hypotension over ED course. Stat CT shows a large amount of hemoperitoneum and active extravasation from GB fossa. Pt c extensive cardiac history including AAA, CHF, mech valve and was restarted on Lovenox/Coumadin overnight. Chief Complaint: abdominal pain Review of Systems Review of Systems: ROS unobtainable: Yes unobtainable due to medical condition [facility] Past Medical History Medical History Ascending aortic aneurysm CT chest in February 2020 measured ascending aortic aneurysm of 5.2 cm. Bicuspid aortic valve S/p mechanical aortic valve replacement in July 2017 at [facility] CHF (congestive heart failure) ef 40-45% 03/02 Congenital heart defect Bicuspid aortic valve found when presenting with CHF in 2016 DM2 (diabetes mellitus, type 2) Essential hypertension Hyperlipidemia Morbid obesity MARY JANE (obstructive sleep apnea) Pulmonary valve disorder Surgical History Surgical History History of aortic valve replacement July 2017 mechanical aortic valve replacement after having a failed aortic valve repair History of appendectomy Open appendectomy when in 4th grade Family History Family History Mother Hypertension Father Family history of diabetes mellitus in first degree relative Family history of cholecystectomy Grandparent Diabetes mellitus Family history of coronary artery disease Social History Social History Social History: The patient lives with his and she is a durable power disability attorney for healthcare. 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 He has 1 child, Nadia. His is the durable power disability attorney for healthcare. He is a full code. The patient occasionally uses alcohol but only socially. He does not use any marijuana or illicit drugs. He does not smoke use lifelong nonsmoker. He is of [place] descent. Smoking status: Former smoker Tobacco type: cigarettes Second hand tobacco smoke exposure: No Additional smoking assessment comments: STATES TRIED IN EARLY DID NOT LIKE IT AND QUIT Alcohol intake: current Drinks per week: 6 Substance use: never Substance use type: does not use Gender identity (if verbalized by the patient): Male Spiritual care concerns: No Meds Home Medications and Allergies Home Medications Medication Instructions Recorded Confirmed Type aspirin 81 mg chewable tablet 81 mg PO QAM 03/01/20 03/21/21 History lisinopril 20 mg tablet 40 mg PO QAM 03/01/20 03/21/21 History metoprolol tartrate 50 mg tablet 100 mg PO Q12H 03/01/20 03/21/21 History warfarin 2 mg tablet 6 mg PO EVERY OTHER DAY 03/01/20 04/01/21 History atorvastatin 40 mg tablet 40 mg PO QAM 03/19/20 03/21/21 History metformin 1,000 mg tablet 1,000 mg PO BID #180 tablet 12/23/20 03/21/21 Rx warfarin 4 mg tablet 4 mg PO EVERY OTHER DAY 12/23/20 04/01/21 History furosemide [Lasix] 20 mg PO DAILY PRN 03/21/21 03/21/21 History tadalafil [Cialis] 20 mg PO DAILY PRN 03/21/21 03/21/21 History hydrocodone-acetaminophen 1 tablet PO Q4H PRN #10 tablet 04/01/21 Rx Allergies Allergy/AdvReac Type Severity Reaction Status Date / Time No Known Allergies Allergy Verified 04/02/21 03:33 Vital Signs Vital Signs - 24 hr 04/02/21 03:12 04/02/21 04:05 04/02/21 04:18 Temperature 36.8 C Pulse Rate 83 87 87 Respiratory Rate 24 H 24 H 28 H Blood Pressure 129/86 107/70 99/69 L Pulse Oximetry 94 94 97 04/02/21 04:57 04/02/21 05:06 04/02/21 05:13 Temperature Pulse Rate 90 95 Respiratory Rate 38 H 32 H 12 Blood Pressure 99/67 L
--- NOTE | 2021-04-02 08:42 | WPDHPUPDATE1 ---
History and Physical Update Update Date/Time: 04/02/21 08:42 History and Physical has been reviewed, including an updated exam of the patient. There are NO changes in the patient's condition. Risks, benefits, and alternatives have been discussed and questions answered. Patient agrees to proceed with procedure.
[2021-04-02] MEDS: LACTATED RINGERS 1,000 ML 30 ML IV CONT (09:04)
--- NOTE | 2021-04-02 10:01 | SUR.OPER ---
EBL:[id number] with clots
--- NOTE | 2021-04-02 10:13 | WPDCNINT ---
Assessment and Plan Assessment and plan (1) Hemoperitoneum: Code(s): K66.1 - Hemoperitoneum Status: Acute Assessment and Plan: Status post laparoscopic surgery and evacuation of hematoma A bleeding vessel was identified and was ligated Empiric antibiotics ICU monitoring Monitor serial hemoglobin (2) H/O mechanical aortic valve replacement: Code(s): Z95.2 - Presence of prosthetic heart valve Status: Acute Assessment and Plan: Patient was on Lovenox as an outpatient and he was bridging to Coumadin after his cholecystectomy Patient received At this point due to bleeding risk and recent surgery and hemodynamic instability will hold further anticoagulation Patient will be monitored for next 6-8 hours and will recheck hemoglobin If patient remains hemodynamically stable and hemoglobin remains stable will start heparin infusion Consult cardiology for recommendations (3) DM2 (diabetes mellitus, type 2): Code(s): E11.9 - Type 2 diabetes mellitus without complications Status: Chronic Assessment and Plan: Sliding scale insulin (4) Shock: Code(s): R57.9 - Shock, unspecified Status: Acute Assessment and Plan: Secondary to acute blood loss Seems to have resolved now as blood pressure is adequate at this time Continue to monitor closely in ICU IV fluids (5) Anemia: Code(s): D64.9 - Anemia, unspecified Status: Acute Assessment and Plan: Serial monitoring of hemoglobin Transfuse as needed Check coags (6) Acute respiratory failure: Code(s): J96.00 - Acute respiratory failure, unspecified whether with hypoxia or hypercapnia Status: Acute Assessment and Plan: Patient is doing abdominal breathing and has morbid obesity. He was placed on CPAP post extubation ABG shows hypoxia and hypercarbia. Patient is morbidly obese and has CHF I will continue BiPAP for now since he is awake and alert for work of breathing, hypercarbia and hypoxia. BiPAP changed to 12/6 FiO2 decreased to 60% Checkchest x-ray SCDs for DVT prophylaxis Total Critical Care Time - 35 minutes Due to a high probability of clinically significant, life threatening deterioration, the patient required my highest level of preparedness to intervene emergently and I personally spent this critical care time directly and personally managing the patient. This critical care time included obtaining a history; examining the patient; pulse oximetry; ordering and review of studies; arranging urgent treatment with development of a management plan; evaluation of patient's response to treatment; frequent reassessment; and discussions with other providers. It was exclusive of separately billable procedures and treating other patients and teaching time. Please see Assessment and Plan section and the rest of the note for further information on patient assessment and treatment Client Portfolio Manager Consult Note Consult date: 04/02/21 Time Seen: 10:35 HPI: Chung Cornelius is a 46 year old morbidly obese male with past medical history of aortic valve replacement with mechanical valve and on anticoagulation, cardiomyopathy with EF 40-45%, aortic aneurysm who underwent cholecystectomy yesterday and was discharged presented to ED c/o severe RUQ pain. Patient was discharged on Lovenox subcu for his mechanical valve. In ED, Pt noted to have progressively worsening hypotension over ED course. Stat CT shows a large amount of hemoperitoneum and active extravasation from GB fossa. Patient was taken to operating room and underwent laparoscopic surgery. A bleeding vessel was noted in the right upper quadrant the cystic artery which was ligated. Close to 2 L of bloody collection was suction. Arterial line was placed. Patient received several blood products including 3 units of packed red cells 2 units of FFP and tranexamic acid Patient now admitted to ICU for further evaluation management. He was extubated in PACU
--- NOTE | 2021-04-02 10:14 | WPDANESEPPF ---
Anes - Initial Pre Proc Eval Procedure: Operation Date: 04/02/21 08:30 Proposed Procedures p Exploratory Laparotomy, Pos Bowel Resec - Nimisha Hummel MD Date/Time: 04/02/21 10:14 Pre Op Diagnosis: Post op pain and shortness of breath Patient Data Age: 46 Gender: M Height: 1.88 m Weight: 145 kg Last Vital Signs Temp 36.0 C L 04/02/21 08:50 Pulse 95 04/02/21 08:50 Resp 36 H 04/02/21 08:50 BP 87/74 L 04/02/21 08:50 Pulse Ox 100 04/02/21 08:50 Allergies Allergy/AdvReac Type Severity Reaction Status Date / Time No Known Allergies Allergy Verified 04/02/21 03:33 Home Medications Medication Instructions Recorded Confirmed Type aspirin 81 mg chewable tablet 81 mg PO QAM 03/01/20 03/21/21 History lisinopril 20 mg tablet 40 mg PO QAM 03/01/20 03/21/21 History metoprolol tartrate 50 mg tablet 100 mg PO Q12H 03/01/20 03/21/21 History warfarin 2 mg tablet 6 mg PO EVERY OTHER DAY 03/01/20 04/01/21 History atorvastatin 40 mg tablet 40 mg PO QAM 03/19/20 03/21/21 History metformin 1,000 mg tablet 1,000 mg PO BID #180 tablet 12/23/20 03/21/21 Rx warfarin 4 mg tablet 4 mg PO EVERY OTHER DAY 12/23/20 04/01/21 History furosemide [Lasix] 20 mg PO DAILY PRN 03/21/21 03/21/21 History tadalafil [Cialis] 20 mg PO DAILY PRN 03/21/21 03/21/21 History hydrocodone-acetaminophen 1 tablet PO Q4H PRN #10 tablet 04/01/21 Rx Laboratory Tests 04/02/21 04/02/21 04/02/21 03:40 03:40 03:40 WBC 16.7 K/mm3 H K/mm3 (4.5-10.0) RBC 4.59 M/mm3 L M/mm3 (4.6-6.20) Hgb 12.7 g/dL L g/dL (14.0-18.0) Hct 38.9 % L % (42.0-52.0) MCV 84.7 fl fl (80-100) MCH 27.7 pg pg (26-34) MCHC 32.6 g/dl g/dl (32-36) RDW 16.0 % H % (11.5-14.5) Plt Count 262 k/mm3 k/mm3 (150-375) MPV 11.4 fl H fl (7.4-10.4) Immature Gran % (Auto) 0.4 % % (0-0.5) Neut % (Auto) 80.2 % H % (45.5-73.1) Lymph % (Auto) 10.0 % L % (18.3-44.2) [place] % (Auto) 7.0 % % (2.6-8.5) Eos % (Auto) 1.9 % % (0-4.4) Baso % (Auto) 0.5 % % (0.2-1.2) Lymph # (Auto) 1.67 K/mm3 K/mm3 (0.9-3.2) [place] # (Auto) 1.2 K/mm3 H K/mm3 (0.1-0.6) Eos # (Auto) 0.3 K/mm3 K/mm3 (0-0.3) Baso # (Auto) 0.1 K/mm3 K/mm3 (0.0-0.1) Abs Immat Gran (auto) 0.07 K/mm3 H K/mm3 (0.00-0.031) Absolute Neuts (auto) 13.4 K/mm3 H K/mm3 (1.3-6.7) Absolute Nucleated RBC 0.0 K/mm3 K/mm3 (0.0-0.012) Nucleated RBC % 0.0 % % (0.0-0.2) Platelet Estimate Anisocytosis Ovalocytes PT 15.1 Seconds H Seconds (11.1-14.7) INR 1.1 APTT 33.8 SECONDS SECONDS (22.3-36.8) Puncture Site ABG pH ABG pCO2 ABG pO2 ABG PO2/FiO2 Ratio ABG HCO3 ABG O2 Saturation ABG O2 Content ABG Base Excess A-a Gradient Oxyhemoglobin Total Hemoglobin O2 Delivery Device O2 Liters/Min FiO2 Sodium 134 mmol/L L mmol/L (137-145) Potassium 4.2 mmol/L mmol/L (3.4-5.0) Chloride 104 mmol/L mmol/L (98-107) Carbon Dioxide 24 mmol/L mmol/L (22-30) Anion Gap 6 mmol/L L mmol/L (8-16) BUN 11 mg/dL mg/dL (9-20) Creatinine 0.70 mg/dL mg/dL (0.7-1.3) Estim Creat Clear Calc 171 ml/min ml/min Estimated GFR > 60 (59 - ) Glucose 150 mg/dL H mg/dL (75-110) Lactic Acid Calcium 8.8 mg/dL mg/dL (8.4-10.2) Total Bilirubin 1.3 mg/dL mg/dL (0.2-1.3) AST 55 U/L U/L (17-59) ALT 39 U/L U/L (4-50) Alkaline Phosphatase 56 U/L U/L (38-126) Troponin I < 0.012 ng/mL ng/mL
--- NOTE | 2021-04-02 10:24 | PM.PROC ---
Procedure Note - Detailed Date of procedure: 04/02/21 Pre-op diagnosis: Post op pain and shortness of breath active bleeding s/p cholecystectomy, hemoperitoneum Post-op diagnosis: same Procedure performed: exploratory laparoscopy, washout and evacuation of blood clot/hemoperitoneum, clipping of actively bleeding vessel Description of procedure: The patient was taken to the operating room and placed in the supine position. Induction of general anesthesia, the patient was prepped and draped in the normal sterile fashion. A time-out was then done to verify the patient's identity as well as the procedure being performed. I began by making a 5 mm incision in the supraumbilical region through the previous camera port site. I then placed an Optiview trocar into the abdominal cavity under visualization. Once confirmed into the peritoneal cavity, 2 gas was hooked up and insufflated. I then placed the endoscope through this trocar site and was immediately able to recognize a large amount of hemoperitoneum and blood clot. This was largely concentrated in the right upper quadrant and up over the liver. I then placed a 12 mm port site at the subxiphoid area again using the old incision. I also at this point placed 2x 5 mm trocar sites in the right abdomen, again under direct visualization and using the old port sites. I then began by washing out and evacuating this large amount of hemoperitoneum, well as blood clot. Once this was done, I was able to visualize the gallbladder fossa. There was noted to be active bleeding. I was able to isolate a bleeding arterial bleeder near the area of the cystic artery. I was able to clip this artery and stop the bleeding. No further bleeding was noted and the rest of the liver bed was noted to be hemostatic. I then continued to wash out and evacuate further clots. After approximately 15 minutes I rechecked the gallbladder fossa and no bleeding was noted. At this point, I placed Surgicel in the gallbladder fossa. I then closed the 12 mm port site under direct visualization with a Trevin cone an 0 Vicryl suture. The abdomen was then desufflated all ports were removed. I then closed all trocar sites with 4 O Monocryl subcuticular suture and Dermabond was placed on each wound. The patient tolerated the procedure relatively well and was hemodynamically stable throughout the procedure. He will be extubated and sent to the ICU in stable condition. Anesthesia: GETA Surgeon: Nimisha Hummel MD Estimated blood loss (mL): 1,650 Drains: No Packing: No Pathology: none sent Complications: No immediate complications Condition: stable Disposition: ICU Findings: Bleeding arterial vessel noted near the area of the cystic artery
[2021-04-02] MEDS: fentaNYL CITRATE INJ (*CRX) 100 MCG/2 ML VIAL 25 MCG IV PUSH ×5 (10:59→12:34)
[2021-04-02 11:00] LABS: Alveolar/Arterial O2 Gradient 396.2 mmHg; Base Excess ABG -5.9 mEq/l (+/-2.0); Fractional Inspired Oxygen 80 %; HCO3 ABG 21.3 mEq/l (22.0-26.0); Oxygen Content ABG 16.5 %vol (16.0-22.0); Oxygen Saturation ABG 97.9 % (95.0-100.0); Oxyhemoglobin 96.1 % THb (90.0-100.0); PCO2 ABG 49.1 mmHg (35.0-45.0); PO2 ABG 122.7 mmHg (80.0-100.0); PO2 FiO2 Ratio Arterial Blood 1.53 %; Total Hemoglobin 12.1 g/dL (12.0-18.0)
[2021-04-02 11:01] LABS: Device NON-INVASIVE VENT; Site Drawn ARTLINE; pH ABG 7.256 (7.350-7.450)
[2021-04-02 11:02] LABS: Basophils Absolute Auto 0.1 K/mm3 (0.0-0.1); Basophils Percent Auto 0.4 % (0.2-1.2); Eosinophils Percent Auto 0.1 % (0-4.4); Hematocrit 32.9 % (42.0-52.0); Hemoglobin 10.9 g/dL (14.0-18.0); Immature Granulocyte Absolute 0.16 K/mm3 (0.00-0.031); Immature Granulocyte Percent A 0.7 % (0-0.5); Lymphocytes Absolute Auto 1.54 K/mm3 (0.9-3.2); Lymphocytes Percent Auto 6.6 % (18.3-44.2); Mean Corpuscular HGB Conc 33.1 g/dl (32-36); Mean Corpuscular Hemoglobin 27.7 pg (26-34); Mean Corpuscular Volume 83.7 fl (80-100); Mean Platelet Volume 10.7 fl (7.4-10.4); Monocytes Absolute Auto 1.7 K/mm3 (0.1-0.6); Monocytes Percent Auto 7.2 % (2.6-8.5); Neutrophils Absolute Auto 19.9 K/mm3 (1.3-6.7); Platelet Count Result 209 k/mm3 (150-375); Red Blood Count 3.93 M/mm3 (4.6-6.20); Red Cell Distribution Width 15.6 % (11.5-14.5); White Blood Count 23.4 K/mm3 (4.5-10.0)
[2021-04-02 11:03] LABS: Non-Invasive Expiratory Pressure 5 CMH2O; Non-Invasive Inspiratory Pressure 10 CMH2O; Non-Invasive Vent Rate 12 /MIN
--- NOTE | 2021-04-02 11:12 | PM.IMCN ---
Assessment and Plan Assessment and plan (1) Cardiomyopathy: Code(s): I42.9 - Cardiomyopathy, unspecified Status: Acute (2) Status post laparoscopic cholecystectomy: Code(s): Z90.49 - Acquired absence of other specified parts of digestive tract Status: Acute (3) Shoulder pain: Code(s): M25.519 - Pain in unspecified shoulder Status: Acute (4) Hemoperitoneum: Code(s): K66.1 - Hemoperitoneum Status: Acute (5) Hemorrhagic shock: Code(s): R57.8 - Other shock Status: Acute (6) Acute respiratory failure: Code(s): J96.00 - Acute respiratory failure, unspecified whether with hypoxia or hypercapnia Status: Acute (7) Anemia: Qualifiers: Anemia type: other cause Other causes of anemia: acute posthemorrhagic Qualified Code(s): D62 - Acute posthemorrhagic anemia Code(s): D64.9 - Anemia, unspecified Status: Acute (8) CHF (congestive heart failure): Code(s): I50.9 - Heart failure, unspecified Status: Acute (9) H/O mechanical aortic valve replacement: Code(s): Z95.2 - Presence of prosthetic heart valve Status: Acute (10) Antiplatelet or antithrombotic long-term use: Code(s): Z79.02 - detention (current) use of antithrombotics/antiplatelets Status: Acute (11) BMI 40.0-44.9, adult: Code(s): Z68.41 - Body mass index [BMI]40.0-44.9, adult Status: Acute (12) DM2 (diabetes mellitus, type 2): Code(s): E11.9 - Type 2 diabetes mellitus without complications Status: Chronic (13) Hyperlipidemia: Qualifiers: Hyperlipidemia type: unspecified Qualified Code(s): E78.5 - Hyperlipidemia, unspecified Code(s): E78.5 - Hyperlipidemia, unspecified Status: Chronic (14) MARY JANE (obstructive sleep apnea): Code(s): G47.33 - Obstructive sleep apnea (adult) (pediatric) Status: Chronic Additional Plan this 46-year-old male status post laparoscopic cholecystectomy returns to the hospital with acute hemoperitoneum. he is Critically ill and requiring admission to the ICU. admit to ICU consult cordwainer BiPAP PRN Pressors p.r.n. IV fluid resuscitation PRBC 1 unit Reverse anticoagulation until bleeding controlled n. p.o. insulin sliding scale Consult surgeon Now status post exploratory laparotomy day 0 defer to surgeon and cordwainer timing of anticoagulation re-initiation SCDs HPI Data of Consult Consult date: 04/21/21 Requesting Physician: Nimisha Hummel MD Primary Care Provider: Guru Felix DO Consult Narrative Narrative: Chung Cornelius is a 46 year old male with HTN, DM, morbid obesity, systolic CHF, valvulopathy, MARY JANE, and ascending aortic aneurysm that was discharged yesterday after undergoing laparoscopic cholecystectomy. He returns today with worsening shortness of breath and pain. Imaging initially performed reports findings of hemoperitoneum. He has been emergently taken to the OR for evaluation of source and treatment of bleed. Patient is seen in the ICU status post exploratory laparoscopy, washout and evacuation of blood clot/hemoperitoneum, clipping of actively bleeding vessel. At the time of my interview patient is on BiPAP. Our interview is very limited but he does nod yes and no appropriately. Most of the history has been taken from the medical record. Patient adds that after he got home he had shoulder pain and abdominal pain around 3:00 a.m. accompanied by worsening shortness of breath therefore he returned to the hospital ER. No nausea, no vomiting, no fever, no chills, No chest pain, no palpitations. remaining 14 point ROS negative Review of Systems Review of Systems: All systems reviewed & are unremarkable except as noted in HPI and below PMFSH Past Medical History Medical History Ascending aortic aneurysm CT chest in February 2020 measured ascending
[2021-04-02 11:23] LABS: Anisocytosis 1+ (NORMAL); Platelet Estimate Adequate (Adequate)
[2021-04-02 11:24] LABS: Ovalocytes 1+ (NORMAL)
[2021-04-02] MEDS: SODIUM CHLORIDE 0.9% IV 1,000 ML 75 ML IV CONT (11:40)
[2021-04-02 11:44] LABS: INR 1.2; Prothrombin Time 15.6 Seconds (11.1-14.7)
[2021-04-02 11:45] LABS: Partial Thromboplastin Time 33.2 SECONDS (22.3-36.8)
[2021-04-02 12:16] LABS: Fibrinogen 283 mg/dl (215-510)
[2021-04-02 12:33] LABS: Glucose Point of Care 172 mg/dl (65-105)
--- NOTE | 2021-04-02 12:49 | ADMGEN ---
This patient, Chung Cornelius, was admitted to Intensive Care Unit-11. Patient/family oriented to hospital policies and general routines including ID bracelet, bed and alarms, visiting hours, pain management, procedures, bathroom and other care routines, personal items, smoking policy, room service/diet, and visiting hours. Information on how to activate the Rapid Response Team has been discussed. Patient/Family are encouraged to report perceived risks to care and to ask questions if they do not understand what they are told or what they should do.
[2021-04-02 14:13] LABS: Alveolar/Arterial O2 Gradient 271.4 mmHg; Base Excess ABG -3.7 mEq/l (+/-2.0); Fractional Inspired Oxygen 60 %; HCO3 ABG 21.8 mEq/l (22.0-26.0); Oxygen Content ABG 14.7 %vol (16.0-22.0); Oxygen Saturation ABG 97.9 % (95.0-100.0); Oxyhemoglobin 96.4 % THb (90.0-100.0); PCO2 ABG 40.9 mmHg (35.0-45.0); PO2 ABG 111.4 mmHg (80.0-100.0); PO2 FiO2 Ratio Arterial Blood 1.86 %; Total Hemoglobin 10.7 g/dL (12.0-18.0); pH ABG 7.344 (7.350-7.450)
[2021-04-02 14:14] LABS: Device NON-INVASIVE VENT; Site Drawn ARTLINE
[2021-04-02 14:16] LABS: Non-Invasive Vent Rate 12 /MIN
[2021-04-02 14:17] LABS: Non-Invasive Expiratory Pressure 6 CMH2O; Non-Invasive Inspiratory Pressure 12 CMH2O
[2021-04-02 17:09] LABS: Glucose Point of Care 122 mg/dl (65-105)
[2021-04-02 17:17] LABS: Basophils Absolute Auto 0.1 K/mm3 (0.0-0.1); Basophils Percent Auto 0.6 % (0.2-1.2); Eosinophils Absolute Auto 0.1 K/mm3 (0-0.3); Eosinophils Percent Auto 0.5 % (0-4.4); Hematocrit 29.8 % (42.0-52.0); Immature Granulocyte Absolute 0.05 K/mm3 (0.00-0.031); Immature Granulocyte Percent A 0.3 % (0-0.5); Lymphocytes Absolute Auto 1.53 K/mm3 (0.9-3.2); Lymphocytes Percent Auto 10.6 % (18.3-44.2); Mean Corpuscular HGB Conc 33.6 g/dl (32-36); Mean Corpuscular Hemoglobin 28.3 pg (26-34); Mean Corpuscular Volume 84.4 fl (80-100); Mean Platelet Volume 10.8 fl (7.4-10.4); Monocytes Absolute Auto 1.5 K/mm3 (0.1-0.6); Monocytes Percent Auto 10.7 % (2.6-8.5); Neutrophils Absolute Auto 11.2 K/mm3 (1.3-6.7); Neutrophils Percent Auto 77.3 % (45.5-73.1); Platelet Count Result 170 k/mm3 (150-375); Red Blood Count 3.53 M/mm3 (4.6-6.20); Red Cell Distribution Width 16.1 % (11.5-14.5); White Blood Count 14.5 K/mm3 (4.5-10.0)
[2021-04-02] MEDS: HEPARIN SOD/D5W 100 UNITS/ML 25,000 UNITS/250 ML BAG 15 UNITS IV CONT (18:40)
[2021-04-02 23:38] LABS: Basophils Absolute Auto 0.1 K/mm3 (0.0-0.1); Basophils Percent Auto 0.5 % (0.2-1.2); Eosinophils Absolute Auto 0.3 K/mm3 (0-0.3); Eosinophils Percent Auto 2.3 % (0-4.4); Hematocrit 27.1 % (42.0-52.0); Immature Granulocyte Absolute 0.05 K/mm3 (0.00-0.031); Immature Granulocyte Percent A 0.4 % (0-0.5); Lymphocytes Absolute Auto 1.55 K/mm3 (0.9-3.2); Lymphocytes Percent Auto 11.1 % (18.3-44.2); Mean Corpuscular HGB Conc 33.2 g/dl (32-36); Mean Corpuscular Volume 84.4 fl (80-100); Mean Platelet Volume 11.4 fl (7.4-10.4); Monocytes Absolute Auto 1.4 K/mm3 (0.1-0.6); Neutrophils Absolute Auto 10.6 K/mm3 (1.3-6.7); Neutrophils Percent Auto 75.7 % (45.5-73.1); Platelet Count Result 158 k/mm3 (150-375); Red Blood Count 3.21 M/mm3 (4.6-6.20); Red Cell Distribution Width 16.1 % (11.5-14.5)
[2021-04-03] VITALS (18 sets, daily range): BP systolic 113–154; BP diastolic 76–89; PULSE 78–109; RESP 18–36; TEMP 36.7–37.6; O2SAT 94–100
[2021-04-03 00:46] LABS: Glucose Point of Care 128 mg/dl (65-105)
[2021-04-03] MEDS: HEPARIN SODIUM 5,000 UNITS/ML VIAL 4500 UNITS IV PUSH (01:49)
[2021-04-03 04:44] LABS: Basophils Absolute Auto 0.1 K/mm3 (0.0-0.1); Basophils Percent Auto 0.4 % (0.2-1.2); Eosinophils Absolute Auto 0.4 K/mm3 (0-0.3); Hematocrit 25.6 % (42.0-52.0); Hemoglobin 8.5 g/dL (14.0-18.0); Immature Granulocyte Absolute 0.07 K/mm3 (0.00-0.031); Immature Granulocyte Percent A 0.5 % (0-0.5); Lymphocytes Absolute Auto 1.38 K/mm3 (0.9-3.2); Lymphocytes Percent Auto 10.2 % (18.3-44.2); Mean Corpuscular HGB Conc 33.2 g/dl (32-36); Mean Corpuscular Hemoglobin 28.1 pg (26-34); Mean Corpuscular Volume 84.5 fl (80-100); Mean Platelet Volume 10.6 fl (7.4-10.4); Monocytes Absolute Auto 1.2 K/mm3 (0.1-0.6); Monocytes Percent Auto 8.9 % (2.6-8.5); Neutrophils Absolute Auto 10.4 K/mm3 (1.3-6.7); Platelet Count Result 138 k/mm3 (150-375); Red Blood Count 3.03 M/mm3 (4.6-6.20); Red Cell Distribution Width 16.2 % (11.5-14.5); White Blood Count 13.5 K/mm3 (4.5-10.0)
[2021-04-03 04:51] LABS: Alveolar/Arterial O2 Gradient 104.9 mmHg; Base Excess ABG -1.8 mEq/l (+/-2.0); Fractional Inspired Oxygen 35 %; HCO3 ABG 22.9 mEq/l (22.0-26.0); Methemoglobin ABG 0.5 %THb (0-1.5); Oxygen Content ABG 12.5 %vol (16.0-22.0); Oxygen Saturation ABG 97.6 % (95.0-100.0); Oxyhemoglobin 96.2 % THb (90.0-100.0); PCO2 ABG 38.1 mmHg (35.0-45.0); PO2 ABG 100.4 mmHg (80.0-100.0); PO2 FiO2 Ratio Arterial Blood 2.87 %; Reduced Hemoglobin 3.3 %THb (0-5.0); Total Hemoglobin 9.1 g/dL (12.0-18.0); pH ABG 7.396 (7.350-7.450)
[2021-04-03 04:53] LABS: Device NON-INVASIVE VENT; Site Drawn ARTLINE
[2021-04-03 04:54] LABS: Non-Invasive Expiratory Pressure 6 CMH2O; Non-Invasive Inspiratory Pressure 12 CMH2O; Non-Invasive Vent Rate 12 /MIN
[2021-04-03 04:55] LABS: Alanine Aminotransferase 34 U/L (4-50); Albumin Level 2.8 g/dL (3.5-5.1); Alkaline Phosphatase 49 U/L (38-126); Anion Gap 1 mmol/L (8-16); Aspartate Amino Transferase 34 U/L (17-59); Blood Urea Nitrogen 16 mg/dL (9-20); Calcium 7.7 mg/dL (8.4-10.2); Carbon Dioxide 25 mmol/L (22-30); Chloride 105 mmol/L (98-107); Estimated CRCL calculation 151 ml/min; Estimated Glomerular Filt Rate > 60; Glucose 125 mg/dL (75-110); INR 1.2; Potassium 3.9 mmol/L (3.4-5.0); Prothrombin Time 16.2 Seconds (11.1-14.7); Sodium 131 mmol/L (137-145)
[2021-04-03] MEDS: MORPHINE SULFATE (*CRX) 4 MG/ML INJ IV PUSH ×4 (06:33→23:57)
[2021-04-03 07:20] LABS: Partial Thromboplastin Time 97.2 SECONDS (22.3-36.8)
--- NOTE | 2021-04-03 07:29 | WPDANESPN ---
Anes - Prog Note Post-Op Date/Time: 04/03/21 07:29 Cardiovascular status: normal Respiratory status: other (pt on room air states he is having a hard time doing his IS - encouraged coughing splinting and continued use of IS and getting up to chair if OK with ICU DR) Airway patency: baseline Mental status: baseline Post-Op hydration status: normal Vital Signs: Last Vital Signs Temp 37.2 C 04/03/21 04:00 Pulse 82 04/03/21 06:00 Resp 29 H 04/03/21 06:00 BP 120/79 04/03/21 06:00 Pulse Ox 98 04/03/21 06:00 Pain Score (VAS): 0 I/O: Intake & Output 04/02/21 04/02/21 04/03/21 15:59 23:59 07:59 Intake Total 2777 420 350 Output Total 500 775 Balance 2777 -80 -425 Laboratory Tests 04/03/21 04:30 04/03/21 04:30 04/02/21 04/02/21 04/02/21 06:39 06:58 10:48 WBC 23.4 H RBC 3.93 L Hgb 10.9 L Hct 32.9 L MCV 83.7 MCH 27.7 MCHC 33.1 RDW 15.6 H Plt Count 209 MPV 10.7 H Immature Gran % (Auto) 0.7 H Neut % (Auto) 85.0 H Lymph % (Auto) 6.6 L [place] % (Auto) 7.2 Eos % (Auto) 0.1 Baso % (Auto) 0.4 Lymph # (Auto) 1.54 [place] # (Auto) 1.7 H Eos # (Auto) 0.0 Baso # (Auto) 0.1 Abs Immat Gran (auto) 0.16 H Absolute Neuts (auto) 19.9 H Absolute Nucleated RBC 0.0 Nucleated RBC % 0.0 Platelet Estimate Adequate Anisocytosis 1+ Ovalocytes 1+ PT INR APTT Fibrinogen Puncture Site ABG pH ABG pCO2 ABG pO2 ABG PO2/FiO2 Ratio ABG HCO3 ABG O2 Saturation ABG O2 Content ABG Base Excess A-a Gradient Oxyhemoglobin Carboxyhemoglobin Methemoglobin Reduced Hemoglobin Total Hemoglobin O2 Delivery Device O2 Liters/Min Vent Rate FiO2 Expiratory Pressure Inspiratory Pressure Sodium Potassium Chloride Carbon Dioxide Anion Gap BUN Creatinine Estim Creat Clear Calc Estimated GFR Glucose POC Capillary Glucose Calcium Total Bilirubin AST ALT Alkaline Phosphatase Total Protein Albumin Blood Type A Positive Antibody Screen Negative Crossmatch See Detail See Detail 04/02/21 04/02/21 04/02/21 10:48 11:00 12:27 WBC RBC Hgb Hct MCV MCH MCHC RDW Plt Count MPV Immature Gran % (Auto) Neut % (Auto) Lymph % (Auto) [place] % (Auto) Eos % (Auto) Baso % (Auto) Lymph # (Auto) [place] # (Auto) Eos # (Auto) Baso # (Auto) Abs Immat Gran (auto) Absolute Neuts (auto) Absolute Nucleated RBC Nucleated RBC % Platelet Estimate Anisocytosis Ovalocytes PT 15.6 H INR 1.2 APTT 33.2 Fibrinogen 283 Puncture Site Artline ABG pH 7.256 L* ABG pCO2 49.1 H ABG pO2 122.7 H ABG PO2/FiO2 Ratio 1.53 ABG HCO3 21.3 L ABG O2 Saturation 97.9 ABG O2 Content 16.5 ABG Base Excess -5.9 A-a Gradient 396.2 Oxyhemoglobin 96.1 Carboxyhemoglobin Methemoglobin Reduced Hemoglobin Total Hemoglobin 12.1 O2 Delivery Device Non-invasive vent O2 Liters/Min Not Reportable Vent Rate 12 FiO2 80 Expiratory Pressure 5 Inspiratory Pressure 10 Sodium Potassium Chloride Carbon Dioxide Anion Gap BUN Creatinine Estim Creat Clear Calc Estimated GFR Glucose POC Capillary Glucose 172 H Calcium Total Bilirubin AST ALT Alkaline Phosphatase Total Protein Albumin Blood Type Antibody Screen Crossmatch 04/02/21 04/02/21 04/02/21 13:59 16:58 17:04 WBC 14.5 H RBC 3.53 L Hgb 10.0 L Hct 29.8 L MCV 84.4 MCH 28.3 MCHC 33.6 RDW 16.1 H Plt Count 170 MPV 10.8 H Immature Gran % (Auto) 0.3 Neut % (Auto) 77.3 H Lymph % (Auto) 10.6 L [place] % (Auto) 10.7 H Eos % (Auto) 0.5 Baso % (Auto) 0.6 Lymph # (Auto) 1.53 [place] # (Auto) 1.5 H Eos # (Auto) 0.1
--- NOTE | 2021-04-03 07:37 | PM.CNCAR ---
Assessment and Plan Additional Plan This is a 46-year-old man with: Mechanical [employer] aortic valve implanted in the past treat severe aortic stenosis due to bicuspid aortic valve disease. The valve was functioning normally. Obviously his anticoagulation needs to be held while he is bleeding. Spoke to the pipe smoking machine operator we are going to stop the IV heparin today and observe his hemoglobin. Since the valves in the aortic position there is not a high risk for a embolic event during a brief interruption in his anticoagulation. Once we are certain he is not bleeding then anticoagulation should be resumed Nick Randolph MD [facility] History of Present Illness History of Present Illness Consult date/time: 04/03/21 07:37 Reason For Visit: Postop Bleed Narrative: This is a 46-year-old man who I know with a history of mechanical aortic valve replacement who is in the hospital following complicated cholecystectomy with hemorrhagic complications. We are consulted to see him to comment on appropriate anticoagulation management. The patient has a [employer] aortic valve prosthesis that was implanted in the remote past to treat severe bicuspid aortic valve stenosis. The patient has been doing well cardiac-davis and does not have any other cardiac pathology identified in the past. He unfortunately recently developed cholecystitis in February of this year and was admitted [facility]. He was felt to be a very high-risk surgical candidate he was treated with a percutaneous surgical drain and discharge. He was readmitted to the hospital for laparoscopic cholecystectomy and a discharged within the last several days. He came back to the hospital symptomatic with abdominal discomfort within about 24 hours and it was clear that he was bleeding. He was brought back to the operating room and appears once again laparoscopically was explored and found to have hemorrhage from a cystic artery and this was ligated with the improvement in his bleeding. Since then he has been placed on intravenous heparin last evening and I was asked to see him at that time. His hemoglobin levels are still slowly declining every 6 hours that it is checked. He states that other Cristobal other than being mildly dyspneic he has no other significant complaints. During his initial hospitalization last month a transesophageal echocardiogram was done which did not demonstrate any additional cardiac pathology I believe at that time there was concern that the valve was not infected since the patient was febrile. Review of Systems Constitutional: Constitutional: Reports no additional constitutional complaints Eyes: Eyes: Reports no additional eye complaints ENT: Reports system reviewed and no additional complaints, except as documented Cardiovascular: Cardiovascular: Reports no additional cardiovascular complaints Respiratory: Respiratory: Reports dyspnea Gastrointestinal: Gastrointestinal: Reports abdominal pain Genitourinary: Genitourinary: Reports no additional male genitourinary complaints Musculoskeletal: Musculoskeletal: Reports no additional musculoskeletal complaints Integumentary/Breasts: Skin/Breast: Reports system reviewed and no additional complaints, except as docu Endocrine: Endocrine: Reports no additional endocrine complaints Hematologic/Lymphatic: Hematologic/Lymphatic: Reports no additional hematologic/lymphatic complaints Allergic/Immunologic: Allergic/Immunologic: Reports no additional allergic/immunologic complaints [facility] Past Medical History Medical History Ascending aortic aneurysm CT chest in February 2020 measured ascending aortic aneurysm of 5.2 cm. Bicuspid aortic valve S/p mechanical aortic valve replacement in July 2017 at [facility] Cardiomyopathy CHF (congestive heart failure) ef 40-45% 03/02 Congenital heart defect Bicuspid aortic valve found when presenting with CHF in 2016 DM2
--- NOTE | 2021-04-03 08:20 | WPDINTPN ---
Progress Note: A&P Assessment and Plan (1) Hemoperitoneum: Code(s): K66.1 - Hemoperitoneum Status: Acute Assessment and Plan: Status post laparoscopic surgery and evacuation of hematoma A bleeding vessel was identified and was ligated Empiric antibiotics ICU monitoring Monitor serial hemoglobin (2) H/O mechanical aortic valve replacement: Code(s): Z95.2 - Presence of prosthetic heart valve Status: Acute Assessment and Plan: Patient was on Lovenox as an outpatient and he was bridging to Coumadin after his cholecystectomy Anticoagulation was obviously stopped after surgery and heparin drip without bolus was started 6-8 hours after surgery as hemoglobin appear to be stable Overnight hemoglobin continued to trend down from 10 to 9 and is 8.5 this morning Discussed with Dr. Randolph. Will hold heparin infusion at this time for another 24 hours and monitor his hemoglobin to assure stability before resuming anticoagulation. Considering patient has aortic valve which is a high-flow valve with low risk of thrombotic complications holding anticoagulation for another 24 hours would offer greater benefit than risk (3) DM2 (diabetes mellitus, type 2): Code(s): E11.9 - Type 2 diabetes mellitus without complications Status: Chronic Assessment and Plan: Sliding scale insulin (4) Shock: Code(s): R57.9 - Shock, unspecified Status: Acute Assessment and Plan: Secondary to acute blood loss Seems to have resolved now as blood pressure is adequate at this time Continue to monitor closely in ICU IV fluids have been discontinued (5) Anemia: Code(s): D64.9 - Anemia, unspecified Status: Acute Assessment and Plan: Serial monitoring of hemoglobin Transfuse as needed Coags were unremarkable (6) Acute respiratory failure: Code(s): J96.00 - Acute respiratory failure, unspecified whether with hypoxia or hypercapnia Status: Acute Assessment and Plan: Patient was doing abdominal breathing and has morbid obesity. He was placed on CPAP post extubation ABG showed hypoxia and hypercarbia. Patient is morbidly obese and has CHF chest x-ray suggested atelectasis Patient remained on BiPAP yesterday evening and ABG improved and he was taken off to nasal cannula. He wore BiPAP overnight and will continue BiPAP at night since patient has sleep apnea Incentive spirometry SCDs for DVT prophylaxis (7) Shoulder pain: Code(s): M25.519 - Pain in unspecified shoulder Status: Acute Assessment and Plan: Check x-ray although it appears to tendinitis or bursitis Continue pain control Subjective Date/time seen: 04/03/21 Overnight events reviewed Afebrile He wore his BiPAP overnight Heparin infusion was started yesterday evening Vitals acceptable Alert awake this morning and is complaining of shoulder pain in the right especially on raising is arm. He also complains of pain in right upper quadrant which is 6/10 severe. Patient denies fever, chest pain, shortness of breath, cough, nausea vomiting, diarrhea, headache or constipation. All other systems were reviewed and were negative Review of Systems Review of Systems: All systems reviewed & are unremarkable except as noted in HPI and below (Subjective) Exam Narrative: Exam Narrative: General: Pt is alert awake and in NAD Lungs/Chest: Trachea central Clear BS B/L, No crackles or wheezing. Patient is doing abdominal breathing and is mildly tachypneic he is morbidly obese Cardiac: RRR. Normal S1 S2. No murmurs Circulation: Dorsalis pedis Pedal pulses are intact and symmetrical. Abdomen: Morbidly obese, present bowel sounds.. Soft. ND. Laparoscopic incisions on abdominal wall tenderness to palpation in right upper quadrant Extremities: No clubbing, cyanosis or edema. Warm patient complains of pain in right shoulder on extension of his right arm. Also tenderness add area surrounding ac
[2021-04-03] MEDS: PANTOPRAZOLE SODIUM IV 40 MG VIAL IV PUSH (08:50)
[2021-04-03] MEDS: CALCIUM GLUC 2,000 MG/NS 100ML 2,000 MG/100 ML BAG 100 MG IVPB (09:42)
[2021-04-03] MEDS: oxyCODONE/ACETAMINOPHEN (*CRX) 5-325 MG TABLET 1 TABLET PO ×3 (09:43→21:20)
--- NOTE | 2021-04-03 10:53 | PM.PNGS ---
Progress Note: A&P Assessment and Plan (1) Hemorrhagic shock: Code(s): R57.8 - Other shock Status: Acute Assessment and Plan: improved, cont to follow serial H/H, cont to hold anticoagulation for now, HD stable Subjective Subjective Date/Time Seen: 04/03/21 10:53 feels a little better today, still c some RUQ/R shoulder pain Review of Systems Review of Systems: All systems reviewed & are unremarkable except as noted in HPI and below Constitutional: Constitutional: Reports fatigue, Reports lethargy and Reports weakness Exam Const: General: cooperative, no acute distress, alert, awake and Physically active Nutritional Appearance: obese Orientation/consciousness: patient oriented x3 Resp: Effort & Inspection: abnormal respiratory pattern Auscultation: diminished lung sounds Cardio: Rate: tachycardic Rhythm: regular rhythm GI: Inspection: distended and incision GI Palp: Yes Soft to palpation, Yes Tenderness to palpation present (GI) and No Guarding due to palpation present (GI) Other: soft, mod dist, mahsa TTP, incisions C/D/I Objective Data Vital Signs Vital Signs: Vital Signs - 24 hr 04/02/21 11:48 04/02/21 12:00 04/02/21 14:00 Temperature 37.1 C Pulse Rate 100 89 80 Respiratory Rate 31 H 18 Blood Pressure 96/76 L 99/75 L Pulse Oximetry 96 100 100 04/02/21 14:10 04/02/21 16:00 04/02/21 16:30 Temperature 36.9 C Pulse Rate 80 71 Respiratory Rate 33 H 30 H Blood Pressure 120/90 Pulse Oximetry 100 98 96 04/02/21 18:00 04/02/21 20:00 04/02/21 22:00 Temperature 36.9 C Pulse Rate 89 87 86 Respiratory Rate 30 H 33 H 29 H Blood Pressure 124/77 120/83 115/75 Pulse Oximetry 95 93 94 04/02/21 23:10 04/02/21 23:12 04/02/21 23:59 Temperature 36.8 C Pulse Rate 88 85 Respiratory Rate 26 H 18 Blood Pressure Pulse Oximetry 97 94 04/03/21 00:00 04/03/21 02:00 04/03/21 04:00 Temperature 37.2 C Pulse Rate 83 78 78 Respiratory Rate 28 H 30 H 26 H Blood Pressure 113/82 117/86 113/76 Pulse Oximetry 97 98 98 05/23/21 04:04 04/03/21 06:00 04/03/21 08:00 Temperature 37.2 C Pulse Rate 83 82 98 Respiratory Rate 27 H 29 H 31 H Blood Pressure 120/79 147/88 H Pulse Oximetry 100 98 94 04/03/21 08:37 04/03/21 10:00 Temperature Pulse Rate 89 98 Respiratory Rate 18 31 H Blood Pressure 141/89 H Pulse Oximetry 96 94 Intake/Output Intake/Output: Intake & Output 03/31/21 04/01/21 04/02/21 04/03/21 23:59 23:59 23:59 23:59 Intake Total 5747 760 Output Total 500 775 Balance 5247 -15 Meds/Results Medications: Active Medications Generic Name Dose Route Start Last Admin Trade Name Freq PRN Reason Stop Dose Admin Hydrocodone Bitart/Acetaminophen 1 tab 04/02/21 13:47 Hydrocodone/Acetaminophen (*Crx) 5-325 Mg Tablet PO Q4H PRN Pain Rated 4-6 Dextrose 12.5 gm 04/02/21 10:23 Dextrose 50% 25 Gm/50 Ml Syringe IV PUSH PRN PRN Hypoglycemia Protocol Diphenhydramine HCl 25 mg 04/02/21 13:47 Diphenhydramine Hcl Inj 50 Mg/Ml Vial IV PUSH Q6H PRN Itching Fentanyl Citrate 25 mcg 04/02/21 10:15 04/02/21 12:34 Fentanyl Citrate Inj (*Crx) 100 Mcg/2 Ml Vial IV PUSH 25 mcg Q2M PRN Administration Pain Glucagon 1 mg 04/02/21 10:23 Glucagon For Inj 1 Mg Vial IM PRN PRN Hypoglycemia Protocol Glucose 15 gm 04/02/21 10:23 Glucose Oral Gel 15 Gm Of Glucse In 37.5 Gm Tube PO PRN PRN Hypoglycemia Protocol Hydromorphone HCl 0.25 mg 04/02/21 10:15 Hydromorphone Hcl Inj (*Crx) 1 Mg/Ml Syr IV PUSH Q5M PRN Pain Dextrose 1,000 mls @ 100 mls/hr 04/02/21 10:23 Dextrose 5% 1,000 Ml IVPB PRN PRN Hypoglycemia Protocol Piperacillin/Tazobactam/Dextrose 3.375 gm in 50 mls @ 100 mls/hr 04/02/21 12:00 04/03/21 07:07 Zosyn 3.375 Gm/D5w 50ml Pm IVPB Infused Q6H YONATAN Infusion Insulin Aspart 3 - 6 units 04/02/21 12:00
[2021-04-03 11:20] LABS: Hematocrit 24.6 % (42.0-52.0); Hemoglobin 8.2 g/dL (14.0-18.0)
[2021-04-03 11:36] LABS: Glucose Point of Care 168 mg/dl (65-105)
[2021-04-03] MEDS: METOPROLOL TARTRATE 50 MG TAB PO ×2 (14:16→21:20)
[2021-04-03 18:42] LABS: Glucose Point of Care 137 mg/dl (65-105)
[2021-04-03 18:45] LABS: Hematocrit 24.6 % (42.0-52.0)
--- NOTE | 2021-04-03 18:56 | PC.NURSE ---
a-line dc'd in left radial per dr. Yi
--- NOTE | 2021-04-03 19:04 | PM.IMPN ---
Progress Note: A&P Assessment and Plan (1) Hemoperitoneum: Code(s): K66.1 - Hemoperitoneum Status: Acute (2) Hemorrhagic shock: Code(s): R57.8 - Other shock Status: Acute (3) Acute respiratory failure: Code(s): J96.00 - Acute respiratory failure, unspecified whether with hypoxia or hypercapnia Status: Acute (4) Shock: Code(s): R57.9 - Shock, unspecified Status: Acute (5) Anemia: Code(s): D64.9 - Anemia, unspecified Status: Acute (6) CHF (congestive heart failure): Code(s): I50.9 - Heart failure, unspecified Status: Acute (7) H/O mechanical aortic valve replacement: Code(s): Z95.2 - Presence of prosthetic heart valve Status: Acute (8) Antiplatelet or antithrombotic long-term use: Code(s): Z79.02 - [facility] (current) use of antithrombotics/antiplatelets Status: Acute (9) BMI 40.0-44.9, adult: Code(s): Z68.41 - Body mass index [BMI]40.0-44.9, adult Status: Acute (10) DM2 (diabetes mellitus, type 2): Code(s): E11.9 - Type 2 diabetes mellitus without complications Status: Chronic (11) Hyperlipidemia: Qualifiers: Hyperlipidemia type: unspecified Qualified Code(s): E78.5 - Hyperlipidemia, unspecified Code(s): E78.5 - Hyperlipidemia, unspecified Status: Chronic (12) MARY JANE (obstructive sleep apnea): Code(s): G47.33 - Obstructive sleep apnea (adult) (pediatric) Status: Chronic (13) Essential hypertension: Code(s): I10 - Essential (primary) hypertension Status: Chronic (14) Shoulder pain: Code(s): M25.519 - Pain in unspecified shoulder Status: Acute Additional Plan 04/02/21 pt returns to ER w worsening abd pain in less than 24 hours after undergoing lap sidney. He is found to have hemoperitoneum and emergently taken to OR. He is seen s/p op in ICU doing well on BiPAP. 04/03/21 pt improved now on NC w BiPAP PRN serial H/H pain control heparin gtt for mechanical valve after repeat Hgb remains stable cont current care remains critically ill in ICU anticipate transfer to floor in 1-2 days Subjective Date/time seen: 04/03/21 19:04 pt still with RUQ and R shoulder pain and mild shortness of breath but improving Exam Narrative: Exam Narrative: GEN: NAD, obese, cooperative HEENT: NCAT, MMM, EOMI Neck: no JVD Heart: S1S2 RRR Lungs: CTA B/l poor air movement Abd: soft, TTP, ND, bowel sounds normoactive Ext: moves all, no cyanosis, no clubbing, no edema Neuro:AAOx3 CN intact no focal neurological deficits Psych: mood and affect congruent Objective Data Vital Signs Vital Signs: Vital Signs - 24 hr 04/02/21 20:00 04/02/21 22:00 04/02/21 23:10 Temperature 98.4 F Pulse Rate 87 86 88 Respiratory Rate 33 H 29 H 26 H Blood Pressure 120/83 115/75 Pulse Oximetry 93 94 97 04/02/21 23:12 04/02/21 23:59 04/03/21 00:00 Temperature 98.3 F Pulse Rate 85 83 Respiratory Rate 18 28 H Blood Pressure 113/82 Pulse Oximetry 94 97 04/03/21 02:00 04/03/21 04:00 04/03/21 04:04 Temperature 98.9 F Pulse Rate 78 78 83 Respiratory Rate 30 H 26 H 27 H Blood Pressure 117/86 113/76 Pulse Oximetry 98 98 100 04/03/21 06:00 04/03/21 08:00 04/03/21 08:37 Temperature 98.9 F Pulse Rate 82 98 89 Respiratory Rate 29 H 31 H 18 Blood Pressure 120/79 147/88 H Pulse Oximetry 98 94 96 04/03/21 10:00 04/03/21 12:00 04/03/21 14:00 Temperature 98.1 F Pulse Rate 98 99 109 H Respiratory Rate 31 H 28 H 24 H Blood Pressure 141/89 H 154/85 H 146/86 H Pulse Oximetry 94 99 95 04/03/21 16:00 04/03/21 18:00 Temperature 99.6 F Pulse Rate 90 83 Respiratory Rate 28 H 28 H Blood Pressure 139/89 137/86 Pulse Oximetry 96 96 Intake/Output Intake/Output: Intake & Output 03/31/21 04/01/21 04/02/21 04/03/21 23:59 23:59 23:59 23:59 Intake Total 1790 8884 Output Total 244 5452 Balance 5209 -606 Meds/Res
--- NOTE | 2021-04-03 19:16 | PC.NURSE ---
Hemaglobin of [address] Yi via phone and no new orders recieved
[2021-04-04] VITALS (16 sets, daily range): BP systolic 117–151; BP diastolic 69–96; PULSE 64–93; RESP 19–28; TEMP 36.7–36.9; O2SAT 94–100
[2021-04-04 04:26] LABS: Basophils Absolute Auto 0.1 K/mm3 (0.0-0.1); Basophils Percent Auto 0.5 % (0.2-1.2); Eosinophils Absolute Auto 0.6 K/mm3 (0-0.3); Eosinophils Percent Auto 4.6 % (0-4.4); Hematocrit 26.4 % (42.0-52.0); Hemoglobin 8.6 g/dL (14.0-18.0); Immature Granulocyte Absolute 0.04 K/mm3 (0.00-0.031); Immature Granulocyte Percent A 0.3 % (0-0.5); Lymphocytes Absolute Auto 1.66 K/mm3 (0.9-3.2); Lymphocytes Percent Auto 13.3 % (18.3-44.2); Mean Corpuscular HGB Conc 32.6 g/dl (32-36); Mean Corpuscular Hemoglobin 28.2 pg (26-34); Mean Corpuscular Volume 86.6 fl (80-100); Mean Platelet Volume 11.1 fl (7.4-10.4); Monocytes Absolute Auto 0.9 K/mm3 (0.1-0.6); Monocytes Percent Auto 7.2 % (2.6-8.5); Neutrophils Absolute Auto 9.2 K/mm3 (1.3-6.7); Neutrophils Percent Auto 74.1 % (45.5-73.1); Platelet Count Result 165 k/mm3 (150-375); Red Blood Count 3.05 M/mm3 (4.6-6.20); White Blood Count 12.5 K/mm3 (4.5-10.0)
[2021-04-04 04:36] LABS: INR 1.3; Prothrombin Time 16.4 Seconds (11.1-14.7)
[2021-04-04 04:37] LABS: Alveolar/Arterial O2 Gradient 95.1 mmHg; Base Excess ABG 0.8 mEq/l (+/-2.0); Carboxyhemoglobin 0.1 % THb (0-2.0); Fractional Inspired Oxygen 35 %; HCO3 ABG 25.5 mEq/l (22.0-26.0); Methemoglobin ABG 0.3 %THb (0-1.5); Oxygen Content ABG 12.2 %vol (16.0-22.0); Oxygen Saturation ABG 97.9 % (95.0-100.0); Oxyhemoglobin 96.6 % THb (90.0-100.0); PO2 ABG 106.8 mmHg (80.0-100.0); PO2 FiO2 Ratio Arterial Blood 3.05 %; Total Hemoglobin 8.8 g/dL (12.0-18.0); pH ABG 7.411 (7.350-7.450)
[2021-04-04 04:39] LABS: Device BIPAP; Expiratory Pressure 6 cmH2O; Inspiratory Pressure 12 cmH2O; Modified Allen's Test Pass; Site Drawn LEFT RADIAL
[2021-04-04 04:48] LABS: Alanine Aminotransferase 27 U/L (4-50); Albumin Level 3.1 g/dL (3.5-5.1); Alkaline Phosphatase 61 U/L (38-126); Anion Gap 2 mmol/L (8-16); Aspartate Amino Transferase 21 U/L (17-59); Bilirubin,Total 0.8 mg/dL (0.2-1.3); Blood Urea Nitrogen 7 mg/dL (9-20); Calcium 8.4 mg/dL (8.4-10.2); Carbon Dioxide 29 mmol/L (22-30); Chloride 104 mmol/L (98-107); Estimated CRCL calculation 157 ml/min; Estimated Glomerular Filt Rate > 60; Glucose 109 mg/dL (75-110); Potassium 4.2 mmol/L (3.4-5.0); Sodium 135 mmol/L (137-145)
[2021-04-04] MEDS: oxyCODONE/ACETAMINOPHEN (*CRX) 5-325 MG TABLET 1 TABLET PO (05:14)
--- NOTE | 2021-04-04 08:02 | WPDINTPN ---
Progress Note: A&P Assessment and Plan (1) Hemoperitoneum: Code(s): K66.1 - Hemoperitoneum Status: Acute Assessment and Plan: Status post laparoscopic surgery and evacuation of hematoma A bleeding vessel was identified and was ligated Empiric antibiotics Monitor serial hemoglobin (2) H/O mechanical aortic valve replacement: Code(s): Z95.2 - Presence of prosthetic heart valve Status: Acute Assessment and Plan: Patient was on Lovenox as an outpatient and he was bridging to Coumadin after his cholecystectomy Anticoagulation was obviously stopped after surgery and heparin drip without bolus was started 6-8 hours after surgery as hemoglobin appear to be stable Hemoglobin continued to trend down yesterday and now appears to have plateaued. 8.6 this morning Discussed with Dr. Randolph yesterday. Heparin infusion is on hold at this time to assure stability before resuming anticoagulation. Considering patient has aortic valve which is a high-flow valve with low risk of thrombotic complications holding anticoagulation for another 24 hours would offer greater benefit than risk Will recheck hemoglobin at noon today and if remains stable will resume heparin infusion without bolus (3) DM2 (diabetes mellitus, type 2): Code(s): E11.9 - Type 2 diabetes mellitus without complications Status: Chronic Assessment and Plan: Sliding scale insulin (4) Shock: Code(s): R57.9 - Shock, unspecified Status: Acute Assessment and Plan: Secondary to acute blood loss Seems to have resolved now as blood pressure is adequate at this time (5) Anemia: Code(s): D64.9 - Anemia, unspecified Status: Acute Assessment and Plan: Serial monitoring of hemoglobin Transfuse as needed Coags were unremarkable (6) Acute respiratory failure: Code(s): J96.00 - Acute respiratory failure, unspecified whether with hypoxia or hypercapnia Status: Acute Assessment and Plan: Improved now Continue IS for atelectasis Up in chair today BiPAP at night for sleep apnea SCDs for DVT prophylaxis (7) Shoulder pain: Code(s): M25.519 - Pain in unspecified shoulder Status: Acute Assessment and Plan: It appears to tendinitis or bursitis. X-ray was negative Continue pain control (8) MARY JANE (obstructive sleep apnea): Code(s): G47.33 - Obstructive sleep apnea (adult) (pediatric) Status: Chronic Assessment and Plan: BiPAP (9) Essential hypertension: Code(s): I10 - Essential (primary) hypertension Status: Chronic Assessment and Plan: Patient started back on his home medications of metoprolol and lisinopril Additional Plan SCDs for DVT prophylaxis Transfer out of ICU today Subjective Date/time seen: 04/04/21 0700 Patient feels better than yesterday but still has mild pain in shoulder and a right upper quadrant pain. He states he is drinking and eating clear liquid diet but unable to pass any flatus. He denies any other complaints. Wore his BiPAP at night and feels he sleeps better with BiPAP. Patient denies fever, chest pain, shortness of breath, cough, nausea vomiting, diarrhea, headache or constipation. Review of Systems Review of Systems: All systems reviewed & are unremarkable except as noted in HPI and below (Subjective) Exam Narrative: Exam Narrative: General: Pt is alert awake and in NAD Lungs/Chest: Trachea central Clear BS B/L, No crackles or wheezing. Patient is doing abdominal breathing and is mildly tachypneic he is morbidly obese Cardiac: RRR. Normal S1 S2. No murmurs Circulation: Dorsalis pedis Pedal pulses are intact and symmetrical. Abdomen: Morbidly obese, present bowel sounds.. Soft. ND. Laparoscopic incisions on abdominal wall tenderness to palpation in right upper quadrant Extremities: No clubbing, cyanosis or edema. Warm patient complains of pain in right shoulder on extension of
[2021-04-04] MEDS: METOPROLOL TARTRATE 50 MG TAB PO (08:34)
[2021-04-04] MEDS: PANTOPRAZOLE SODIUM IV 40 MG VIAL IV PUSH (08:35)
[2021-04-04] MEDS: lisinopriL 20 MG TABLET 40 MG PO (08:35)
[2021-04-04] MEDS: HYDROcodone/acetaminophen (*CRX) 5-325 MG TABLET 1 TAB PO ×2 (10:31→19:47)
[2021-04-04 11:50] LABS: Glucose Point of Care 112 mg/dl (65-105)
--- NOTE | 2021-04-04 12:05 | PM.PNGS ---
Progress Note: A&P Assessment and Plan (1) Hemoperitoneum: Code(s): K66.1 - Hemoperitoneum Status: Acute Assessment and Plan: H/H stable, no signs of ongoing bleeding. Will plan to start heparin gtt this afternoon if H/H stable at noon. Continue to monitor for any signs of ongoing bleeding. Transfer to med/surg today Advance diet (2) Hemorrhagic shock: Code(s): R57.8 - Other shock Status: Acute (3) H/O mechanical aortic valve replacement: Code(s): Z95.2 - Presence of prosthetic heart valve Status: Acute (4) Antiplatelet or antithrombotic long-term use: Code(s): Z79.02 - [facility] [employer] [facility] (current) use of antithrombotics/antiplatelets Status: Acute (5) BMI 40.0-44.9, adult: Code(s): Z68.41 - Body mass index [BMI]40.0-44.9, adult Status: Acute (6) Acute cholecystitis: Code(s): K81.0 - Acute cholecystitis Status: Acute Subjective Subjective Date/Time Seen: 04/04/21 12:05 Interval history: Pain improving. Still c/o shoulder pain and RUQ pain. Exam GI: Inspection: incision (minimal bruising, intact with glue) GI Palp: Yes Soft to palpation and Yes Tenderness to palpation present (GI) (RUQ) Objective Data Vital Signs Vital Signs: Vital Signs - 24 hr 04/03/21 14:00 04/03/21 16:00 04/03/21 18:00 Temperature 37.6 C Pulse Rate 109 H 90 83 Respiratory Rate 24 H 28 H 28 H Blood Pressure 146/86 H 139/89 137/86 Pulse Oximetry 95 96 96 04/03/21 20:00 04/03/21 20:14 04/03/21 21:04 Temperature Pulse Rate 83 90 83 Respiratory Rate 21 H 32 H 25 H Blood Pressure 138/85 Pulse Oximetry 96 96 96 04/03/21 21:20 04/03/21 22:00 04/03/21 23:40 Temperature Pulse Rate 87 82 82 Respiratory Rate 18 18 Blood Pressure 140/79 Pulse Oximetry 96 96 04/04/21 00:00 04/04/21 02:00 04/04/21 03:31 Temperature 36.9 C Pulse Rate 72 67 67 Respiratory Rate 24 H 22 H 22 H Blood Pressure 125/76 117/74 Pulse Oximetry 99 100 100 04/04/21 04:00 04/04/21 06:00 04/04/21 07:54 Temperature 36.7 C Pulse Rate 64 70 Respiratory Rate 23 H 28 H Blood Pressure 121/76 126/88 Pulse Oximetry 100 100 97 04/04/21 08:00 04/04/21 08:34 04/04/21 10:00 Temperature 36.8 C Pulse Rate 70 82 74 Respiratory Rate 21 H 19 Blood Pressure 151/96 H 125/69 Pulse Oximetry 97 95 Intake/Output Intake/Output: Intake & Output 04/01/21 04/02/21 04/03/21 04/04/21 23:59 23:59 23:59 23:59 Intake Total 5747 2380 1210 Output Total 500 0865 1950 Balance 0603 -441 -688 Meds/Results Medications: Active Medications Generic Name Dose Route Start Last Admin Trade Name Freq PRN Reason Stop Dose Admin Hydrocodone Bitart/Acetaminophen 1 tab 04/02/21 13:47 04/04/21 10:31 Hydrocodone/Acetaminophen (*Crx) 5-325 Mg Tablet PO 1 tab Q4H PRN Administration Pain Rated 4-6 Dextrose 12.5 gm 04/02/21 10:23 Dextrose 50% 25 Gm/50 Ml Syringe IV PUSH PRN PRN Hypoglycemia Protocol Diphenhydramine HCl 25 mg 04/02/21 13:47 Diphenhydramine Hcl Inj 50 Mg/Ml Vial IV PUSH Q6H PRN Itching Fentanyl Citrate 25 mcg 04/02/21 10:15 04/02/21 12:34 Fentanyl Citrate Inj (*Crx) 100 Mcg/2 Ml Vial IV PUSH 25 mcg Q2M PRN Administration Pain Glucagon 1 mg 04/02/21 10:23 Glucagon For Inj 1 Mg Vial IM PRN PRN Hypoglycemia Protocol Glucose 15 gm 04/02/21 10:23 Glucose Oral Gel 15 Gm Of Glucse In 37.5 Gm Tube PO PRN PRN Hypoglycemia Protocol Hydromorphone HCl 0.25 mg 04/02/21 10:15 Hydromorphone Hcl Inj (*Crx) 1 Mg/Ml Syr IV PUSH Q5M PRN Pain Dextrose 1,000 mls @ 100 mls/hr 04/02/21 10:23 Dextrose 5% 1,000 Ml IVPB PRN PRN Hypoglycemia Protocol Piperacillin/Tazobactam/Dextrose 3.375 gm in 50 mls @ 100 mls/hr 04/02/21 12:00 04/04/21 11:55 Zosyn 3.375 Gm/D5w 50ml Pm IVPB 100 mls/hr Q6H YONATAN Administration Insulin
[2021-04-04 12:13] LABS: Hematocrit 25.5 % (42.0-52.0); Hemoglobin 8.5 g/dL (14.0-18.0)
--- NOTE | 2021-04-04 12:29 | PM.IMPN ---
Progress Note: A&P Assessment and Plan (1) Hemoperitoneum: Code(s): K66.1 - Hemoperitoneum Status: Acute Assessment and Plan: H/H stable, no signs of ongoing bleeding. from bleeding post cholecystectomy. plan to initiate heparin gtt this afternoon if H/H stable at noon. Continue to monitor for any signs of ongoing bleeding. Advance diet (2) Hemorrhagic shock: Code(s): R57.8 - Other shock Status: Acute Assessment and Plan: resoled now. (3) H/O mechanical aortic valve replacement: Code(s): Z95.2 - Presence of prosthetic heart valve Status: Acute Assessment and Plan: 2017 SAVR. on coumadin at home. curently anticogaulation on hold. will resume heparin gtt if h and h remains stable. will need slow resumption of anticoagulatio if remais stable. (4) Antiplatelet or antithrombotic long-term use: Code(s): Z79.02 - [facility] (current) use of antithrombotics/antiplatelets Status: Acute (5) BMI 40.0-44.9, adult: Code(s): Z68.41 - Body mass index [BMI]40.0-44.9, adult Status: Acute (6) Acute cholecystitis: Code(s): K81.0 - Acute cholecystitis Status: Acute Additional Plan SCDs for DVT prophylaxis Subjective Date/time seen: 04/04/21 12:29 Interval history: feeling better. has soreness in his right upper quadrant, right soulde ris sore as well. it was once dislocated many years ago. no fever, chills. bp is stable. Review of Systems Review of Systems: Narrative: - CONSTITUTIONAL: Denies weight loss, fever and chills. - HEENT: Denies changes in vision and hearing - RESPIRATORY: Denies SOB and cough. - CV: Denies palpitations and CP. - GI: reprots abdominal pain, denies nausea, vomiting and diarrhea. - : Denies dysuria and urinary frequency. - MSK: Denies myalgia and joint pain. reprots right shoudler pain - SKIN: Denies rash and pruritus. - NEUROLOGICAL: Denies headache and syncope. - PSYCHIATRIC: Denies recent changes in mood. Denies anxiety and depression. All systems reviewed & are unremarkable except as noted in HPI and below Exam Narrative: Exam Narrative: General: Pt is alert awake and in NAD Lungs/Chest: clear to ausculatatio bilatarlly, no respiratory distess Cardiac: RRR. Normal S1 S2. No murmurs Circulation: Dorsalis pedis Pedal pulses are intact and symmetrical. Abdomen: Morbidly obese, present bowel sounds.. Soft. ND. Laparoscopic incisions on abdominal wall tenderness to palpation in right upper quadrant Extremities: No clubbing, cyanosis or edema. right shoudler restricted ROM on extension, no warmth or tenderness or redness noted : Roberts in place Neurologic: Follows commands. Moves all 4 extremities PERRL AO x3 Skin: No Rash Objective Data Vital Signs Vital Signs: Vital Signs - 24 hr 04/03/21 14:00 04/03/21 16:00 04/03/21 18:00 Temperature 99.6 F Pulse Rate 109 H 90 83 Respiratory Rate 24 H 28 H 28 H Blood Pressure 146/86 H 139/89 137/86 Pulse Oximetry 95 96 96 04/03/21 20:00 04/03/21 20:14 04/03/21 21:04 Temperature Pulse Rate 83 90 83 Respiratory Rate 21 H 32 H 25 H Blood Pressure 138/85 Pulse Oximetry 96 96 96 04/03/21 21:20 04/03/21 22:00 04/03/21 23:40 Temperature Pulse Rate 87 82 82 Respiratory Rate 18 18 Blood Pressure 140/79 Pulse Oximetry 96 96 04/04/21 00:00 04/04/21 02:00 04/04/21 03:31 Temperature 98.5 F Pulse Rate 72 67 67 Respiratory Rate 24 H 22 H 22 H Blood Pressure 125/76 117/74 Pulse Oximetry 99 100 100 04/04/21 04:00 04/04/21 06:00 04/04/21 07:54 Temperature 98.1 F Pulse Rate 64 70 Respiratory Rate 23 H 28 H Blood Pressure 121/76 126/88 Pulse Oximetry 100 100 97 04/04/21 08:00 04/04/21 08:34 04/04/21 10:00 Temperature 98.2 F Pulse Rate 70 82 74 Respiratory Rate 21 H 19 Blood Pressure 151/96 H 125/69 Pulse Oximetry 97 95 04/04/21 12:00 Temperature Pulse Rate Respiratory Rate Blood
[2021-04-04] MEDS: ATORVASTATIN 40 MG TABLET PO (13:19)
[2021-04-04] MEDS: FUROSEMIDE 20 MG TABLET PO (13:19)
[2021-04-04] MEDS: ASPIRIN 81 MG CHEWABLE TABLET PO (13:19)
[2021-04-04] MEDS: HEPARIN SOD/D5W 100 UNITS/ML 25,000 UNITS/250 ML BAG 15 UNITS IV CONT (13:23)
[2021-04-04] MEDS: MORPHINE SULFATE (*CRX) 4 MG/ML INJ IV PUSH (13:28)
[2021-04-04 17:30] LABS: Glucose Point of Care 100 mg/dl (65-105)
[2021-04-04] MEDS: metFORMIN HCL 500 MG TABLET 1000 MG PO (18:04)
[2021-04-04 19:43] LABS: Hematocrit 27.2 % (42.0-52.0); Hemoglobin 8.9 g/dL (14.0-18.0)
[2021-04-04] MEDS: METOPROLOL TARTRATE 50 MG TAB 100 MG PO (19:47)
--- NOTE | 2021-04-04 20:15 | PC.NURSE ---
Patient moved to [facility]. Denies complaints. All patient belongings packed including medications. Imelda is receiving nurse. Patient voided 400ml. Nurse Imelda updated. Chart and medications handed to Imelda VILLA.
[2021-04-04] MEDS: HEPARIN SODIUM 5,000 UNITS/ML VIAL 9000 UNITS IV PUSH (20:53)
[2021-04-04 23:45] LABS: Glucose Point of Care 129 mg/dl (65-105)
[2021-04-05] VITALS (8 sets, daily range): BP systolic 124–150; BP diastolic 64–86; PULSE 73–78; RESP 16–22; TEMP 36.1–36.6; O2SAT 95–98
[2021-04-05 03:19] LABS: Basophils Absolute Auto 0.1 K/mm3 (0.0-0.1); Basophils Percent Auto 0.6 % (0.2-1.2); Eosinophils Absolute Auto 0.5 K/mm3 (0-0.3); Eosinophils Percent Auto 3.7 % (0-4.4); Hematocrit 23.7 % (42.0-52.0); Hemoglobin 7.6 g/dL (14.0-18.0); Immature Granulocyte Absolute 0.06 K/mm3 (0.00-0.031); Immature Granulocyte Percent A 0.5 % (0-0.5); Lymphocytes Absolute Auto 1.66 K/mm3 (0.9-3.2); Lymphocytes Percent Auto 13.2 % (18.3-44.2); Mean Corpuscular HGB Conc 32.1 g/dl (32-36); Mean Corpuscular Hemoglobin 27.7 pg (26-34); Mean Corpuscular Volume 86.5 fl (80-100); Mean Platelet Volume 12.1 fl (7.4-10.4); Monocytes Absolute Auto 0.9 K/mm3 (0.1-0.6); Monocytes Percent Auto 6.9 % (2.6-8.5); Neutrophils Absolute Auto 9.4 K/mm3 (1.3-6.7); Neutrophils Percent Auto 75.1 % (45.5-73.1); Platelet Count Result 118 k/mm3 (150-375); Red Blood Count 2.74 M/mm3 (4.6-6.20); White Blood Count 12.5 K/mm3 (4.5-10.0)
[2021-04-05 03:27] LABS: Alanine Aminotransferase 24 U/L (4-50); Albumin Level 3.4 g/dL (3.5-5.1); Alkaline Phosphatase 83 U/L (38-126); Anion Gap 2 mmol/L (8-16); Aspartate Amino Transferase 22 U/L (17-59); Bilirubin,Total 0.8 mg/dL (0.2-1.3); Blood Urea Nitrogen 7 mg/dL (9-20); Calcium 8.6 mg/dL (8.4-10.2); Carbon Dioxide 27 mmol/L (22-30); Chloride 106 mmol/L (98-107); Estimated CRCL calculation 204 ml/min; Estimated Glomerular Filt Rate > 60; Glucose 125 mg/dL (75-110); Sodium 135 mmol/L (137-145)
[2021-04-05 03:27] LABS: Partial Thromboplastin Time 46.7 SECONDS (22.3-36.8)
[2021-04-05] MEDS: oxyCODONE/ACETAMINOPHEN (*CRX) 5-325 MG TABLET 1 TABLET PO (03:30)
[2021-04-05 03:32] LABS: INR 1.2; Prothrombin Time 15.4 Seconds (11.1-14.7)
[2021-04-05] MEDS: HEPARIN SOD/D5W 100 UNITS/ML 25,000 UNITS/250 ML BAG 19 UNITS IV CONT (03:55)
[2021-04-05] MEDS: HEPARIN SODIUM 5,000 UNITS/ML VIAL 9000 UNITS IV PUSH (03:56)
[2021-04-05 05:56] LABS: Glucose Point of Care 128 mg/dl (65-105)
[2021-04-05] MEDS: ATORVASTATIN 40 MG TABLET PO (08:13)
[2021-04-05] MEDS: metFORMIN HCL 500 MG TABLET 1000 MG PO ×2 (08:13→17:20)
[2021-04-05 08:14] LABS: Hematocrit 24.2 % (42.0-52.0); Hemoglobin 7.9 g/dL (14.0-18.0)
[2021-04-05] MEDS: METOPROLOL TARTRATE 50 MG TAB 100 MG PO ×2 (08:14→20:49)
[2021-04-05] MEDS: FUROSEMIDE 20 MG TABLET PO (08:14)
[2021-04-05] MEDS: ASPIRIN 81 MG CHEWABLE TABLET PO (08:14)
[2021-04-05] MEDS: lisinopriL 20 MG TABLET 40 MG PO (08:15)
[2021-04-05] MEDS: PANTOPRAZOLE SODIUM IV 40 MG VIAL IV PUSH (08:15)
[2021-04-05 10:13] LABS: Partial Thromboplastin Time 76.6 SECONDS (22.3-36.8)
--- NOTE | 2021-04-05 10:38 | PM.PNCARD ---
Progress Note: A&P Assessment and Plan (1) H/O mechanical aortic valve replacement: Code(s): Z95.2 - Presence of prosthetic heart valve Status: Acute Assessment and Plan: Patient with a [facility] mechanical aortic valve replacement admitted with hemoperitoneum. Had been off of his warfarin for 5 days for his cholecystectomy. Started on heparin by hospitalist 04/04/2021. Stable H & H. Will resume warfarin today. I believe his warfarin dose recently at home has been in 7-8 mg daily; will start at 10 mg daily for 2 days then cut back as it took a long time for pt to become therapeutic last time it was held for his acute cholecystitis. 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 (3) Hemoperitoneum: Code(s): K66.1 - Hemoperitoneum Status: Acute Assessment and Plan: Required laparoscopic reexploration for bleeding. (4) Status post laparoscopic cholecystectomy: Code(s): Z90.49 - Acquired absence of other specified parts of digestive tract Status: Acute Assessment and Plan: Cholecystectomy 04/01/2021 (5) Cardiomyopathy: Code(s): I42.9 - Cardiomyopathy, unspecified Status: Acute Assessment and Plan: Has some edema but lungs are clear. Subjective Date/time seen: 04/05/21 10:38 Interval history: Follow-up for anticoagulation, mechanical [facility] aortic valve replacement, recent bleeding problems. Date of service 04/05/2021: Patient's H&H remained stable and he was started on heparin yesterday. H&H continues to be stable. Has not yet been started back on warfarin. Eating solids. Some right upper quadrant pain. Some RUIZ and that it hurts to breathe. Ambulating in his room. Working with his incentive spirometer. Had a bowel movement. Review of Systems Constitutional: Constitutional: Reports lethargy ENT: Reports Normal hearing present Cardiovascular: Cardiovascular: Denies chest pain, Denies leg edema, Denies lightheadedness and Denies palpitations Respiratory: Respiratory: Reports dyspnea on exertion Gastrointestinal: Gastrointestinal: Reports abdominal pain and Denies constipation Genitourinary: Genitourinary: Denies dysuria Musculoskeletal: Musculoskeletal: Reports no additional musculoskeletal complaints Integumentary/Breasts: Skin/Breast: Denies rash Neurologic: Reports system reviewed and no additional complaints, except as documented Psychiatric: Psychiatric: Reports no additional psychiatric complaints Exam Narrative: Exam Narrative: Pleasant middle-aged male sitting up in chair, in no distress Const: General: no acute distress and uncomfortable (Some discomfort in the right upper quadrant) HENMT: Mouth: Yes moist mucous membranes Eyes: EOM: EOMs intact bilaterally Neck: Neck: supple Resp: Effort & Inspection: normal respiratory effort Auscultation: clear to auscultation bilaterally and no rales Cardio: Rate: regular rate Rhythm: regular rhythm Heart sounds: Murmur heart sound present Other: 2/6 YANELIS upper sternal borders, crisp valve click. GI: GI Palp: Yes Soft to palpation and Yes Tenderness to palpation present (GI) Skin: General skin exam: normal color and no rashes or lesions noted Neuro: Cognition (Neuro): normal cognition Speech: normal speech Extrem: General: edema (Mild pretibial edema) Psych: Mental Status: mental status grossly normal Objective Data Vital Signs Vital Signs: Vital Signs - 24 hr 04/04/21 12:00 04/04/21 17:22 04/04/21 19:37 Temperature 98.3 F 98.4 F Pulse Rate 73 72 72 Respiratory Rate 20 24 H 22 H Blood Pressure 147/76 H 134/73 Pulse Oximetry 95 94 97 04/04/21 19:40 04/04/21 19:44 04/04/21
--- NOTE | 2021-04-05 11:45 | PM.PNGS ---
Progress Note: A&P Assessment and Plan (1) Hemoperitoneum: Code(s): K66.1 - Hemoperitoneum Status: Acute Assessment and Plan: Hgb dropped to 7.6 this morning. Repeat H/H showed a hgb of 7.9. Patient hemodynamically stable. Unclear where he could still be bleeding from if hemoglobin continues to drop. Will repeat H/H again at 1500. If his hgb continues to trend down, then we will need to stop the Heparin drip. Platelets also down to 118,000 today. Continue to trend labs, repeat CBC in the am. 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 Continue to closely monitor. See plan above regarding anticoagulation. Additional Plan I discussed the plan of care with Dr. Quinn. Subjective Subjective Date/Time Seen: 04/05/21 11:45 Post Op day: 3 (Exploratory laparoscopy, washout and evacuation of blood clot/hemoperitoneum, clipping of actively bleeding vessel) Patient reports: feels better, flatus, bowel movement and afebrile Interval history: Patient seen this morning and still complaining of right-sided abdominal pain and right shoulder pain. He believes the pain is about the same or slightly better. Tolerating a low fat diet well without nausea or vomiting. He reports passing more gas and belching this morning. He had a BM after breakfast. No other complaints at this time. Review of Systems Review of Systems: All systems reviewed & are unremarkable except as noted in HPI and below Exam Const: General: comfortable, no acute distress, alert and awake Nutritional Appearance: obese Orientation/consciousness: patient oriented x3 Cardio: Rate: regular rate Rhythm: regular rhythm GI: Inspection: non-distended GI Palp: Yes Soft to palpation, Yes Tenderness to palpation present (GI) (mostly tender over right-sided hematoma ), No Guarding due to palpation present (GI) and No Rebound tenderness present Auscultation: normal bowel sounds Other: Abdominal incisions clean and dry, glue intact. There is some minimal bruising at the incisions, but the most right lateral trochar incision has ecchymosis extending laterally with firmness and swelling to this area consistent with a hematoma Skin: General skin exam: normal color Neuro: General: moves all extremities and no focal motor deficits Extrem: General: no clubbing, cyanosis or edema and no calf tenderness Psych: Mental Status: mental status grossly normal Insight: Good insight present (Psych) Judgement: Good judgement present (Psych) Objective Data Vital Signs Vital Signs: Vital Signs - 24 hr 04/04/21 12:00 04/04/21 17:22 04/04/21 19:37 Temperature 98.3 F 98.4 F Pulse Rate 73 72 72 Respiratory Rate 20 24 H 22 H Blood Pressure 147/76 H 134/73 Pulse Oximetry 95 94 97 04/04/21 19:40 04/04/21 19:44 04/04/21 19:47 Temperature 98.3 F Pulse Rate 85 93 Respiratory Rate 21 H Blood Pressure 140/85 Pulse Oximetry 94 99 04/04/21 23:00 04/05/21 05:40 04/05/21 08:00 Temperature 97.4 F L 97.8 F Pulse Rate 78 73 77 Respiratory Rate 22 H 20 18 Blood Pressure 124/74 150/86 H Pulse Oximetry 98 95 97 04/05/21 08:14 04/05/21 08:31 Temperature Pulse Rate 77 77 Respiratory Rate Blood Pressure Pulse Oximetry 97 Intake/Output Intake/Output: Intake & Output 04/02/21 04/03/21 04/04/21 04/05/21 23:59 23:59 23:59 23:59 Inta
[2021-04-05] MEDS: HYDROcodone/acetaminophen (*CRX) 5-325 MG TABLET 1 TAB PO ×2 (11:49→20:49)
[2021-04-05 12:15] LABS: Glucose Point of Care 112 mg/dl (65-105)
--- NOTE | 2021-04-05 13:29 | PM.IMPN ---
Progress Note: A&P Assessment and Plan (1) Hemoperitoneum: Code(s): K66.1 - Hemoperitoneum Status: Acute Assessment and Plan: Patient underwent cholecystectomy on 04/01/2021. He had been off his Coumadin prior to the procedure. He was discharged home the same day back on his Coumadin. He returned the next day for increasing abdominal pain and found to have hemoperitoneum. On 04/02/2021, patient underwent exploratory laparotomy with washout and evacuation of blood clot and clipping of actively bleeding vessel. Patient tolerated this procedure well. Hemoglobin has dropped to the 7 range but stable. He is tolerating the Heparin drip. Therapy is going well. Tolerating oral intake. (2) H/O mechanical aortic valve replacement: Code(s): Z95.2 - Presence of prosthetic heart valve Status: Acute Assessment and Plan: Patient had been off of his warfarin for 5 days prior to his surgery. He was discharged home on Coumadin. He returned because of increasing pain and found to have hemoperitoneum on 04/02/2021. Patient underwent washout of clot and vessel clipping. He developed hemorrhagic shock requiring ICU admission postoperatively. Patient stabilized. Patient states that prior to his surgery he was on 6 mg of Coumadin alternating with 4 mg every other day. He states his INR was therapeutic with this regimen. He has been started back On heparin. Hemoglobin is low but stable in the 7 range. Cardiology following with plans to resume Coumadin (3) Hemorrhagic shock: Code(s): R57.8 - Other shock Status: Acute Assessment and Plan: Secondary to acute blood loss anemia. Blood pressure responded with IV fluids and blood products. Blood pressure stable now and he is tolerating antihypertensive medications. Continue to monitor. (4) Acute respiratory failure: Code(s): J96.00 - Acute respiratory failure, unspecified whether with hypoxia or hypercapnia Status: Acute Assessment and Plan: Resolved. (5) Anemia: Code(s): D64.9 - Anemia, unspecified Status: Acute Assessment and Plan: Acute blood loss anemia related to hemoperitoneum. Hemoglobin 12.7 on admission but has trended downward to the 7 range. He has required 3 units of packed red blood cells and 2 units of FFP since admission. Last transfusion was 04/02/2021. Continue to monitor and transfuse as needed. (6) DM2 (diabetes mellitus, type 2): Code(s): E11.9 - Type 2 diabetes mellitus without complications Status: Chronic Assessment and Plan: A1c 6.0 in February. The patient's blood glucose was reviewed on 04/05 Glucose remains well controlled. Continue AccuCheks covering with sliding scale. Hypoglycemia protocol available as needed. Continue current medications. (7) MARY JANE (obstructive sleep apnea): Code(s): G47.33 - Obstructive sleep apnea (adult) (pediatric) Status: Chronic Assessment and Plan: Mild pulmonary HTN noted by Echo in January 2021. Patient use NIV overnight for a few hours but was found to have the the mask off. He stated he was scared wearing the mask overnight. Continue to monitor. (8) Essential hypertension: Code(s): I10 - Essential (primary) hypertension Status: Chronic Assessment and Plan: Patient's blood pressure was reviewed on 04/05 Blood pressure remains mostly well controlled. Will continue current medications. (9) CHF (congestive heart failure): Code(s): I50.9 - Heart failure, unspecified Status: Acute Assessment and Plan: Patient has a history of CHF. Echocardiogram in January showing EF of 55-60% and Grade 1 diastolic dysfunction. LENA in February showing now with EF of 40-45%. Unclear why the difference in EF in a short time interval. Will defer to cardiology. (10) BMI 40.0-44.9, adult: Code(s): Z68.41 - Body mass index [BMI]40.0-44.9, adult Status: A
[2021-04-05 15:49] LABS: Hematocrit 23.2 % (42.0-52.0); Hemoglobin 7.5 g/dL (14.0-18.0)
[2021-04-05] MEDS: WARFARIN (*PBKC) 10 MG TABLET PO (17:21)
[2021-04-05 18:12] LABS: Glucose Point of Care 103 mg/dl (65-105)
[2021-04-05 20:55] LABS: Glucose Point of Care 130 mg/dl (65-105)
[2021-04-06] VITALS (7 sets, daily range): BP systolic 128–156; BP diastolic 69–77; PULSE 68–84; RESP 14–26; TEMP 36.1–36.9; O2SAT 96–98
[2021-04-06] MEDS: HYDROcodone/acetaminophen (*CRX) 5-325 MG TABLET 1 TAB PO ×2 (05:22→21:42)
[2021-04-06 05:47] LABS: Basophils Absolute Auto 0.1 K/mm3 (0.0-0.1); Basophils Percent Auto 0.6 % (0.2-1.2); Eosinophils Absolute Auto 0.5 K/mm3 (0-0.3); Eosinophils Percent Auto 4.9 % (0-4.4); Hematocrit 23.2 % (42.0-52.0); Hemoglobin 7.4 g/dL (14.0-18.0); Immature Granulocyte Absolute 0.06 K/mm3 (0.00-0.031); Immature Granulocyte Percent A 0.6 % (0-0.5); Lymphocytes Absolute Auto 1.03 K/mm3 (0.9-3.2); Lymphocytes Percent Auto 10.8 % (18.3-44.2); Mean Corpuscular HGB Conc 31.9 g/dl (32-36); Mean Corpuscular Hemoglobin 27.5 pg (26-34); Mean Corpuscular Volume 86.2 fl (80-100); Mean Platelet Volume 10.5 fl (7.4-10.4); Monocytes Absolute Auto 0.7 K/mm3 (0.1-0.6); Monocytes Percent Auto 7.4 % (2.6-8.5); Neutrophils Absolute Auto 7.2 K/mm3 (1.3-6.7); Neutrophils Percent Auto 75.7 % (45.5-73.1); Nucleated Red Blood Cells Perc 0.2 % (0.0-0.2); Platelet Count Result 206 k/mm3 (150-375); Red Blood Count 2.69 M/mm3 (4.6-6.20); Red Cell Distribution Width 15.9 % (11.5-14.5); White Blood Count 9.5 K/mm3 (4.5-10.0)
[2021-04-06 05:57] LABS: Prothrombin Time 13.8 Seconds (11.1-14.7)
[2021-04-06 06:05] LABS: Alanine Aminotransferase 23 U/L (4-50); Albumin Level 3.5 g/dL (3.5-5.1); Alkaline Phosphatase 87 U/L (38-126); Anion Gap 5 mmol/L (8-16); Aspartate Amino Transferase 22 U/L (17-59); Bilirubin,Total 1.1 mg/dL (0.2-1.3); Blood Urea Nitrogen 7 mg/dL (9-20); Carbon Dioxide 29 mmol/L (22-30); Chloride 108 mmol/L (98-107); Estimated CRCL calculation 176 ml/min; Estimated Glomerular Filt Rate > 60; Glucose 118 mg/dL (75-110); Sodium 142 mmol/L (137-145)
[2021-04-06 07:58] LABS: Glucose Point of Care 113 mg/dl (65-105)
[2021-04-06] MEDS: FUROSEMIDE 20 MG TABLET PO (08:07)
[2021-04-06] MEDS: ATORVASTATIN 40 MG TABLET PO (08:07)
[2021-04-06] MEDS: metFORMIN HCL 500 MG TABLET 1000 MG PO ×2 (08:07→17:55)
[2021-04-06] MEDS: ASPIRIN 81 MG CHEWABLE TABLET PO (08:07)
[2021-04-06] MEDS: METOPROLOL TARTRATE 50 MG TAB 100 MG PO ×2 (08:08→21:38)
[2021-04-06] MEDS: lisinopriL 20 MG TABLET 40 MG PO (08:08)
[2021-04-06] MEDS: PANTOPRAZOLE SODIUM IV 40 MG VIAL IV PUSH (08:08)
--- NOTE | 2021-04-06 08:54 | PM.PNGS ---
Progress Note: A&P Assessment and Plan (1) Anemia: Qualifiers: Other causes of anemia: acute posthemorrhagic Anemia type: other cause Qualified Code(s): D62 - Acute posthemorrhagic anemia Code(s): D64.9 - Anemia, unspecified Status: Acute Assessment and Plan: hemoglobin dropped a little yesterday and I think this coincided with ecchymosis that developed around his right lateral incision. I do not appreciate an expanding hematoma and hemoglobin appears stable this morning. Heparin drip was held overnight in case he was still bleeding but I think this should be ok to resume this morning. Platelets also better this AM. Continue anticoagulation per Cardiology recommendations. Hopefully should be surgically stable now that he is 4 days out from his re-operation. Home once therapeutic anticoagulation goals met without any further signs of bleeding. (2) Status post laparoscopic cholecystectomy: Code(s): Z90.49 - Acquired absence of other specified parts of digestive tract Status: Acute Assessment and Plan: (3) Hemoperitoneum: Code(s): K66.1 - Hemoperitoneum Status: Acute (4) H/O mechanical aortic valve replacement: Code(s): Z95.2 - Presence of prosthetic heart valve Status: Acute (5) Antiplatelet or antithrombotic long-term use: Code(s): Z79.02 - MCFP (current) use of antithrombotics/antiplatelets Status: Acute (6) BMI 40.0-44.9, adult: Code(s): Z68.41 - Body mass index [BMI]40.0-44.9, adult Status: Acute Subjective Subjective Date/Time Seen: 04/06/21 08:54 Interval history: Bruising around right lateral incision and extending inferiorly. No worsening abdominal pain. Says he feels like his energy is improving. Tolerating diet. Exam GI: Other: Ecchymosis around right lateral incision. Area feels soft and slightly tender. Remaining incisions healing well. Objective Data Vital Signs Vital Signs: Vital Signs - 24 hr 04/05/21 14:17 04/05/21 20:48 04/05/21 20:49 Temperature 36.6 C 36.1 C L Pulse Rate 75 78 78 Respiratory Rate 16 18 Blood Pressure 128/66 134/64 Pulse Oximetry 96 96 04/05/21 22:36 04/06/21 05:16 04/06/21 08:08 Temperature 36.1 C L Pulse Rate 77 69 68 Respiratory Rate 22 H 16 Blood Pressure 139/77 Pulse Oximetry 98 97 Intake/Output Intake/Output: Intake & Output 04/03/21 04/04/21 04/05/21 04/06/21 23:59 23:59 23:59 23:59 Intake Total 2380 2530 2720 450 Output Total 2875 4650 1500 1100 Balance -495 2120 1220 -650 Meds/Results Medications: Active Medications Generic Name Dose Route Start Last Admin Trade Name Freq PRN Reason Stop Dose Admin Hydrocodone Bitart/Acetaminophen 1 tab 04/02/21 13:47 04/06/21 05:22 Hydrocodone/Acetaminophen (*Crx) 5-325 Mg Tablet PO 1 tab Q4H PRN Administration Pain Rated 4-6 Aspirin 81 mg 04/04/21 09:00 04/06/21 08:07 Aspirin 81 Mg Chewable Tablet PO 81 mg QAM YONATAN Administration Atorvastatin Calcium 40 mg 04/04/21 09:00 04/06/21 08:07 Atorvastatin 40 Mg Tablet PO 40 mg QAM YONATAN Administration Dextrose 12.5 gm 04/02/21 10:23 Dextrose 50% 25 Gm/50 Ml Syringe IV PUSH PRN PRN Hypoglycemia Protocol Diphenhydramine HCl 25 mg 04/02/21 13:47 Diphenhydramine Hcl Inj 50 Mg/Ml Vial IV PUSH Q6H PRN Itching Furosemide 20 mg 04/04/21 09:00 04/06/21 08:07 Furosemide 20 Mg Tablet PO 20 mg DAILY YONATAN Administration Glucagon 1 mg 04/02/21 10:23 Glucagon For Inj 1 Mg Vial IM PRN PRN Hypoglycemia Protocol Glucose 15 gm 04/02/21 10:23 Glucose Oral Gel 15 Gm Of Glucse In 37.5 Gm Tube PO PRN PRN Hypoglycemia Protocol Dextrose 1,000 mls @ 100 mls/hr 04/02/21 10:23 Dextrose 5% 1,000 Ml IVPB PRN PRN Hypoglycemia Protocol Piperacillin/Tazobactam/Dextrose 3.375 gm in 50 mls @ 100 mls/hr 04/02/21 12:00
--- NOTE | 2021-04-06 09:24 | PCOTNOTE ---
Attempted to see patient this am, however patient reported already completing ADLs this am. Pt stated I already got a shower and brushed my teeth. They just got the towels for me, and I did it by myself. Pt reported, I even put my own socks on today. Pt had no concerns as pertains to OT at this time. The only thing I'm worried about is taking off these stickers when it's time.
[2021-04-06] MEDS: HEPARIN SOD/D5W 100 UNITS/ML 25,000 UNITS/250 ML BAG 23 UNITS IV CONT (11:09)
--- NOTE | 2021-04-06 11:30 | PC.NURSE ---
Patient c/o itching to right back. Scratch titus noted to mid and right side of back. Several small raised areas noted to right lower back. Called Dr. Harris and notified him of patient's c/o itching and irritation. Orders received.
[2021-04-06 12:18] LABS: Glucose Point of Care 110 mg/dl (65-105)
--- NOTE | 2021-04-06 13:57 | PM.IMPN ---
Progress Note: A&P Assessment and Plan (1) Hemoperitoneum: Code(s): K66.1 - Hemoperitoneum Status: Acute Assessment and Plan: Patient underwent cholecystectomy on 04/01/2021. He had been off his Coumadin prior to the procedure. He was discharged home the same day back on his Coumadin. He returned the next day for increasing abdominal pain and found to have hemoperitoneum. On 04/02/2021, patient underwent exploratory laparotomy with washout and evacuation of blood clot and clipping of actively bleeding vessel. Patient tolerated this procedure well. Hemoglobin has dropped to the 7 range but stable. He is tolerating the Heparin drip. Therapy is going well. Tolerating oral intake. (2) H/O mechanical aortic valve replacement: Code(s): Z95.2 - Presence of prosthetic heart valve Status: Acute Assessment and Plan: Patient had been off of his warfarin for 5 days prior to his surgery. He was discharged home on Coumadin (not on Lovenox). He returned because of increasing pain and found to have hemoperitoneum on 04/02/2021. Patient underwent washout of clot and vessel clipping. He developed hemorrhagic shock requiring ICU admission postoperatively. Patient stabilized. Patient states that prior to his surgery he was on 6 mg of Coumadin alternating with 4 mg every other day. He states his INR was therapeutic with this regimen. Heparin held yesterday but has been started back on heparin again today. Hemoglobin is low but stable in the 7 range. Cardiology following and is managing his Coumadin. They felt Heparin drip was unnecessary and that just resuming his Coumadin would be sufficient (patient is low risk for thrombus formation) and allow for the patietn to be discharged. (3) Hemorrhagic shock: Code(s): R57.8 - Other shock Status: Acute Assessment and Plan: Secondary to acute blood loss anemia. Blood pressure responded with IV fluids and blood products. Blood pressure stable now and he is tolerating antihypertensive medications. Continue to monitor. (4) Acute respiratory failure: Code(s): J96.00 - Acute respiratory failure, unspecified whether with hypoxia or hypercapnia Status: Acute Assessment and Plan: Resolved. (5) Anemia: Qualifiers: Anemia type: other cause Other causes of anemia: acute posthemorrhagic Qualified Code(s): D62 - Acute posthemorrhagic anemia Code(s): D64.9 - Anemia, unspecified Status: Acute Assessment and Plan: Acute blood loss anemia related to hemoperitoneum. Hemoglobin 12.7 on admission but has trended downward to the 7 range and remaining stable. He has required 3 units of packed red blood cells and 2 units of FFP since admission. Last transfusion was 04/02/2021. Continue to monitor and transfuse as needed. (6) DM2 (diabetes mellitus, type 2): Code(s): E11.9 - Type 2 diabetes mellitus without complications Status: Chronic Assessment and Plan: A1c 6.0 in February. The patient's blood glucose was reviewed on 04/06 Glucose remains well controlled. Continue AccuCheks covering with sliding scale. Hypoglycemia protocol available as needed. Continue current medications with metformin. (7) MARY JANE (obstructive sleep apnea): Code(s): G47.33 - Obstructive sleep apnea (adult) (pediatric) Status: Chronic Assessment and Plan: Mild pulmonary HTN noted by Echo in January 2021. Patient used NIV overnight for a few hours again last night. He has a unit at home but only tolerates it for a few hours per night. Continue to encourage compliance. (8) Essential hypertension: Code(s): I10 - Essential (primary) hypertension Status: Chronic Assessment and Plan: Patient's blood pressure was reviewed on 04/06 Blood pressure remains mostly well controlled. Will continue current medications with lisnopril and Lopressor. (9) CHF (congestive heart
[2021-04-06] MEDS: DIPHENHYDRAMINE 1%/ZINC 0.1% CREAM 30 GM TUBE 1 APPLIC TOPICAL (14:24)
--- NOTE | 2021-04-06 15:38 | PM.PNCARD ---
Progress Note: A&P Assessment and Plan (1) H/O mechanical aortic valve replacement: Code(s): Z95.2 - Presence of prosthetic heart valve Status: Acute Assessment and Plan: Patient with a [facility] mechanical aortic valve replacement admitted with hemoperitoneum. Had been off of his warfarin for 5 days for his cholecystectomy. Started on heparin 04/04/2021. H&H dropped a bit from the to . Resumed warfarin 04/05/2021 at 10 mg daily. Will provide another 10 mg today and probably home tomorrow on 8 mg daily (usual home dose is 7-8 mg daily recently). Continue daily H&H Spoke to Dr. Quinn. This is a low risk valve as far as thrombosis goes and I think the heparin is causing more harm than benefit. I recommend we stop heparin and just continue anticoagulation w warfarin. (2) alf current use of anticoagulant: Code(s): Z79.01 - meterman (current) use of anticoagulants Status: Acute Assessment and Plan: As above. (3) Hemoperitoneum: Code(s): K66.1 - Hemoperitoneum Status: Acute Assessment and Plan: Required laparoscopic reexploration for bleeding. (4) Status post laparoscopic cholecystectomy: Code(s): Z90.49 - Acquired absence of other specified parts of digestive tract Status: Acute Assessment and Plan: Cholecystectomy 04/01/2021 (5) Cardiomyopathy: Code(s): I42.9 - Cardiomyopathy, unspecified Status: Acute Assessment and Plan: Has some edema but lungs are clear, no CHF. Continue metoprolol 100 mg b.i.d. and lisinopril 40 mg q.a.m. Outpatient follow-up. Subjective Date/time seen: 04/06/21 15:38 Interval history: Follow-up for anticoagulation, mechanical [facility] aortic valve replacement, recent bleeding problems. Date of service 04/05/2021: Patient's H&H remained stable and he was started on heparin yesterday. H&H continues to be stable. Has not yet been started back on warfarin. Eating solids. Some right upper quadrant pain. Some RUIZ and that it hurts to breathe. Ambulating in his room. Working with his incentive spirometer. Had a bowel movement. Date of service 04/06/2021: Patient is up and about in his room, still a bit sore but better. Mild cough. No chest pain or dizziness. Eating okay. Review of Systems Constitutional: Constitutional: Reports lethargy ENT: Reports Normal hearing present Cardiovascular: Cardiovascular: Denies chest pain, Denies leg edema, Denies lightheadedness, Denies palpitations and Reports dyspnea on exertion Respiratory: Respiratory: Reports dyspnea on exertion Gastrointestinal: Gastrointestinal: Reports abdominal pain and Denies constipation Genitourinary: Genitourinary: Denies dysuria Musculoskeletal: Musculoskeletal: Reports no additional musculoskeletal complaints Integumentary/Breasts: Skin/Breast: Denies rash Neurologic: Reports system reviewed and no additional complaints, except as documented and Reports Normal hearing present Psychiatric: Psychiatric: Reports no additional psychiatric complaints Endocrine: Endocrine: Denies palpitations Exam Narrative: Exam Narrative: Pleasant middle-aged male Walking in his room, using incentive spirometer, in no distress Const: General: no acute distress and uncomfortable (Some discomfort in the right upper quadrant) HENMT: Mouth: Yes moist mucous membranes Eyes: EOM: EOMs intact bilaterally Neck: Neck: supple Resp: Effort & Inspection: normal respiratory effort Auscultation: clear to auscultation bilaterally and no rales Cardio: Rate: regular rate Rhythm: regular rhythm Heart sounds: Murmur heart sound present Other: 2/6 YANELIS upper sternal borders, crisp valve click. Skin: General skin exam: normal color Wounds: wounds noted ( lesions on
[2021-04-06 17:13] LABS: Glucose Point of Care 133 mg/dl (65-105)
[2021-04-06] MEDS: WARFARIN (*PBKC) 10 MG TABLET PO (18:10)
[2021-04-06 21:37] LABS: Glucose Point of Care 103 mg/dl (65-105)
[2021-04-07 06:02] LABS: Basophils Absolute Auto 0.1 K/mm3 (0.0-0.1); Basophils Percent Auto 0.7 % (0.2-1.2); Eosinophils Absolute Auto 0.4 K/mm3 (0-0.3); Eosinophils Percent Auto 3.7 % (0-4.4); Hematocrit 23.3 % (42.0-52.0); Hemoglobin 7.5 g/dL (14.0-18.0); Immature Granulocyte Absolute 0.06 K/mm3 (0.00-0.031); Immature Granulocyte Percent A 0.6 % (0-0.5); Lymphocytes Absolute Auto 1.12 K/mm3 (0.9-3.2); Mean Corpuscular HGB Conc 32.2 g/dl (32-36); Mean Corpuscular Hemoglobin 27.5 pg (26-34); Mean Corpuscular Volume 85.3 fl (80-100); Mean Platelet Volume 10.8 fl (7.4-10.4); Monocytes Absolute Auto 0.8 K/mm3 (0.1-0.6); Monocytes Percent Auto 8.8 % (2.6-8.5); Neutrophils Percent Auto 74.2 % (45.5-73.1); Nucleated Red Blood Cells Perc 0.3 % (0.0-0.2); Platelet Count Result 225 k/mm3 (150-375); Red Blood Count 2.73 M/mm3 (4.6-6.20); Red Cell Distribution Width 15.8 % (11.5-14.5); White Blood Count 9.4 K/mm3 (4.5-10.0)
[2021-04-07 06:11] LABS: INR 1.2; Prothrombin Time 15.3 Seconds (11.1-14.7)
[2021-04-07 06:15] VITALS: BP 147/74; PULSE 64; RESP 12; TEMP 36.4; O2SAT 97
[2021-04-07 06:15] LABS: Alanine Aminotransferase 23 U/L (4-50); Albumin Level 3.5 g/dL (3.5-5.1); Alkaline Phosphatase 85 U/L (38-126); Anion Gap 7 mmol/L (8-16); Aspartate Amino Transferase 26 U/L (17-59); Bilirubin,Total 1.2 mg/dL (0.2-1.3); Blood Urea Nitrogen 7 mg/dL (9-20); Calcium 9.1 mg/dL (8.4-10.2); Carbon Dioxide 28 mmol/L (22-30); Chloride 107 mmol/L (98-107); Estimated CRCL calculation 176 ml/min; Estimated Glomerular Filt Rate > 60; Glucose 110 mg/dL (75-110); Potassium 3.9 mmol/L (3.4-5.0); Sodium 142 mmol/L (137-145)
[2021-04-07 06:59] LABS: Glucose Point of Care 113 mg/dl (65-105)
[2021-04-07 07:43] LABS: Glucose Point of Care 101 mg/dl (65-105)
[2021-04-07 09:20] VITALS: PULSE 64
[2021-04-07] MEDS: metFORMIN HCL 500 MG TABLET 1000 MG PO (09:20)
[2021-04-07] MEDS: FUROSEMIDE 20 MG TABLET PO (09:20)
[2021-04-07] MEDS: lisinopriL 20 MG TABLET 40 MG PO (09:20)
[2021-04-07] MEDS: ATORVASTATIN 40 MG TABLET PO (09:20)
[2021-04-07] MEDS: METOPROLOL TARTRATE 50 MG TAB 100 MG PO (09:20)
[2021-04-07] MEDS: ASPIRIN 81 MG CHEWABLE TABLET PO (09:21)
[2021-04-07 11:34] LABS: Glucose Point of Care 97 mg/dl (65-105)
--- NOTE | 2021-04-07 12:14 | PM.IMPN ---
Progress Note: A&P Assessment and Plan (1) Hemoperitoneum: Code(s): K66.1 - Hemoperitoneum Status: Acute Assessment and Plan: Patient underwent cholecystectomy on 04/01/2021. He had been off his Coumadin prior to the procedure. He was discharged home the same day back on his Coumadin (with possibly Lovenox). He returned the next day for increasing abdominal pain and found to have hemoperitoneum. On 04/02/2021, patient underwent exploratory laparotomy with washout and evacuation of blood clot and clipping of actively bleeding vessel. Patient tolerated this procedure well. Hemoglobin has dropped to the 7 range but now stable. Therapy is going well. Tolerating oral intake. (2) H/O mechanical aortic valve replacement: Code(s): Z95.2 - Presence of prosthetic heart valve Status: Acute Assessment and Plan: Patient had been off of his warfarin for 5 days prior to his surgery. He was discharged home after the surgery on Coumadin (but not sure if he was also on Lovenox). He returned because of increasing pain and found to have hemoperitoneum on 04/02/2021. Patient underwent washout of clot and vessel clipping. He developed hemorrhagic shock requiring ICU admission postoperatively. Patient stabilized. Patient states that prior to his surgery he was on 6 mg of Coumadin alternating with 4 mg every other day. He states his INR was therapeutic with this regimen. Heparin drip has been stopped now. Hemoglobin is low but stable in the 7 range. Cardiology following and is managing his anti-coagulation. (3) Hemorrhagic shock: Code(s): R57.8 - Other shock Status: Acute Assessment and Plan: Secondary to acute blood loss anemia. Blood pressure responded with IV fluids and blood products. Blood pressure stable now and he is tolerating antihypertensive medications. Continue to monitor. (4) Acute respiratory failure: Code(s): J96.00 - Acute respiratory failure, unspecified whether with hypoxia or hypercapnia Status: Acute Assessment and Plan: Resolved. (5) Anemia: Qualifiers: Anemia type: other cause Other causes of anemia: acute posthemorrhagic Qualified Code(s): D62 - Acute posthemorrhagic anemia Code(s): D64.9 - Anemia, unspecified Status: Acute Assessment and Plan: Acute blood loss anemia related to hemoperitoneum. Hemoglobin 12.7 on admission but has trended downward to the 7 range and remaining stable. He has required 3 units of packed red blood cells and 2 units of FFP since admission. Last transfusion was 04/02/2021. Continue to monitor and transfuse as needed. (6) DM2 (diabetes mellitus, type 2): Code(s): E11.9 - Type 2 diabetes mellitus without complications Status: Chronic Assessment and Plan: A1c 6.0 in February. The patient's blood glucose was reviewed on 04/07 Glucose remains well controlled. Continue AccuCheks covering with sliding scale. Hypoglycemia protocol available as needed. Continue current medications with metformin. (7) MARY JANE (obstructive sleep apnea): Code(s): G47.33 - Obstructive sleep apnea (adult) (pediatric) Status: Chronic Assessment and Plan: Mild pulmonary HTN noted by Echo in January 2021. Patient uses NIV overnight for a few hours each night. He has a unit at home but only tolerates it for a few hours per night. Continue to encourage compliance. (8) Essential hypertension: Code(s): I10 - Essential (primary) hypertension Status: Chronic Assessment and Plan: Patient's blood pressure was reviewed on 04/07 Blood pressure remains mostly well controlled. Will continue current medications with lisinopril and Lopressor. (9) CHF (congestive heart failure): Code(s): I50.9 - Heart failure, unspecified Status: Acute Assessment and Plan: Patient has a history of CHF. Echocardiogram in January showing EF of 55
--- NOTE | 2021-04-07 12:19 | PM.PNCARD ---
Progress Note: A&P Assessment and Plan (1) H/O mechanical aortic valve replacement: Code(s): Z95.2 - Presence of prosthetic heart valve Status: Acute Assessment and Plan: Patient with a [facility] mechanical aortic valve replacement admitted with hemoperitoneum. 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 Started on heparin 04/04/2021, stopped 04/06/2021. H&H dropped a bit from the to . Resumed warfarin 04/05/2021 at 10 mg daily. INR today is 1.2, starting to come up. Discharge home tomorrow on 8 mg daily (usual home dose is 7-8 mg daily recently). Pt asked to check INR on Sunday and call office w/ results. 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 (3) Hemoperitoneum: Code(s): K66.1 - Hemoperitoneum Status: Acute Assessment and Plan: Required laparoscopic reexploration for bleeding. (4) Status post laparoscopic cholecystectomy: Code(s): Z90.49 - Acquired absence of other specified parts of digestive tract Status: Acute Assessment and Plan: Cholecystectomy 04/01/2021 (5) Cardiomyopathy: Code(s): I42.9 - Cardiomyopathy, unspecified Status: Acute Assessment and Plan: Has some edema but lungs are clear, no CHF. Continue metoprolol 100 mg b.i.d. and lisinopril 40 mg q.a.m. Outpatient follow-up. Subjective Date/time seen: 04/07/21 12:19 Interval history: Follow-up for anticoagulation, mechanical [facility] aortic valve replacement, recent bleeding problems. 04/05/2021: Patient's H&H remained stable and he was started on heparin yesterday. H&H continues to be stable. Has not yet been started back on warfarin. Eating solids. Some right upper quadrant pain. Some RUIZ and that it hurts to breathe. Ambulating in his room. Working with his incentive spirometer. Had a bowel movement. Warfarin initiated, 10 mg today. 04/06/2021: Patient is up and about in his room, still a bit sore but better. Mild cough. No chest pain or dizziness. Eating okay. STopped heparin drip. Warfarin 10 mg today. DAte of SErvice 04/07/2021: Pt didn't sleep well 2nd pain, couldn't get comfortable. Working w/ incentive spirometer, but that is painful. Review of Systems Constitutional: Constitutional: Reports lethargy ENT: Reports Normal hearing present Cardiovascular: Cardiovascular: Denies chest pain, Denies leg edema, Denies lightheadedness, Denies palpitations and Reports dyspnea on exertion Respiratory: Respiratory: Reports dyspnea on exertion Gastrointestinal: Gastrointestinal: Reports abdominal pain and Denies constipation Genitourinary: Genitourinary: Denies dysuria Musculoskeletal: Musculoskeletal: Reports no additional musculoskeletal complaints Integumentary/Breasts: Skin/Breast: Denies rash Neurologic: Reports system reviewed and no additional complaints, except as documented and Reports Normal hearing present Psychiatric: Psychiatric: Reports no additional psychiatric complaints Endocrine: Endocrine: Denies palpitations Exam Narrative: Exam Narrative: Pleasant middle-aged male sitting in chair, finished lunch, looks tired. Const: General: no acute distress and uncomfortable (Some discomfort in the right upper quadrant) HENMT: Mouth: Yes moist mucous membranes Eyes: EOM: EOMs intact bilaterally Neck: Neck: supple Resp: Effort & Inspection: normal respiratory effort Auscultation: clear to auscultation bilaterally and no rales Cardio: Rate: regular rate Rhythm: regular rhythm Heart sounds: Murmur heart sound present Other: 2/6 YANELIS upper sternal borders, crisp valve click. Skin: General skin exam: normal color W
--- NOTE | 2021-04-07 12:24 | PM.PNGS ---
Progress Note: A&P Assessment and Plan (1) Anemia: Qualifiers: Anemia type: other cause Other causes of anemia: acute posthemorrhagic Qualified Code(s): D62 - Acute posthemorrhagic anemia Code(s): D64.9 - Anemia, unspecified Status: Acute Assessment and Plan: H/H remains stable this morning. There is ecchymosis near the right lateral incision. This remains unchanged today and is soft on exam. He is surgically stable with no further signs of bleeding. Dr. Quinn spoke to Cardiology yesterday. The Heparin drip was held and the patient was restarted on his warfarin. The plan is for Cardiology to continue to manage his warfarin until therapeutic, which could be monitored as an outpatient. Okay from a surgical standpoint to discharge the patient today. He will follow-up with Dr. Quinn as previously scheduled. He has [place] from his lap sidney that he can use for pain control at home. I discussed signs of bleeding and reasons to return to the ER with the patient. (2) Status post laparoscopic cholecystectomy: Code(s): Z90.49 - Acquired absence of other specified parts of digestive tract Status: Acute Assessment and Plan: Continue low fat diet and keep already scheduled follow-up with Dr. Quinn. 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 Quinn. Subjective Subjective Date/Time Seen: 04/07/21 11:24 Post Op day: 5 Patient reports: no new complaints, feels better, pain is less, tolerating a regular diet (low fat), voiding w/o difficulty, flatus, bowel movement and afebrile Interval history: Patient continues to do well. No new complaints. Pain is about the same or even slightly better in the right abd. Exam Const: General: no acute distress and awake GI: Inspection: non-distended GI Palp: Yes Soft to palpation and Yes Tenderness to palpation present (GI) (near the ecchymosis on the right abd and at incisions) Other: Ecchymosis around right lateral incision. Area feels soft and slightly tender. Remaining incisions healing well. Neuro: General: moves all extremities and no focal motor deficits Psych: Mental Status: mental status grossly normal Judgement: Good judgement present (Psych) Objective Data Vital Signs Vital Signs: Vital Signs - 24 hr 04/06/21 14:00 04/06/21 20:25 04/06/21 21:38 Temperature 98.4 F 97.5 F L Pulse Rate 71 72 84 Respiratory Rate 18 14 Blood Pressure 128/69 156/70 H Pulse Oximetry 98 96 04/06/21 23:21 04/06/21 23:22 04/07/21 06:15 Temperature 97.6 F Pulse Rate 77 77 64 Respiratory Rate 26 H 26 H 12 Blood Pressure 147/74 H Pulse Oximetry 96 96 97 04/07/21 09:20 Temperature Pulse Rate 64 Respiratory Rate Blood Pressure Pulse Oximetry Intake/Output Intake/Output: Intake & Output 04/04/21 04/05/21 04/06/21 04/07/21 23:59 23:59 23:59 23:59 Intake Total 2530 2720 3650 460 Output Total 4650 1500 4300 1300 Balance -2120 1220 -650 -840 Meds/Results Medications: Active Medications Generic Name Dose Route Start Last Admin Trade Name Freq PRN Reason Stop Dose Admin Hydrocodone Bitart/Acetaminophen 1 tab 04/02/21 13:47 04/06/21 21:42 Hydrocodone/Acetaminophen (*Crx) 5-325 Mg Tablet PO 1 tab Q4H PRN Administration Pain Rated 4-6 Aspirin 81 mg 04/04/21 09:00 04/07/21 09:21 Aspirin 81 Mg Chewable Tablet PO 81 mg QAM YONATAN Administration Atorvastatin Calcium 40 mg 04/04/21 09:00 04/07/21 09:20 Atorvastatin 40 Mg
[2021-04-07 14:00] VITALS: BP 135/76; PULSE 66; RESP 18; TEMP 36.7; O2SAT 97
--- NOTE | 2021-04-07 15:50 | PM.DS ---
DS: Admitting Diagnosis Admitting Diagnosis Admitting Diagnosis: Hemoperitoneum Shock S/p laparoscopic cholecystectomy AAnticoagulant use CHF H/O mechanical aortic valve replacement Hypertension Cardiomyopathy Type 2 DM Anemia DS: Discharge Diagnosis Discharge Diagnosis (1) Hemoperitoneum: Code(s): K66.1 - Hemoperitoneum Status: Acute (2) Hemorrhagic shock: Code(s): R57.8 - Other shock Status: Acute (3) Status post laparoscopic cholecystectomy: Code(s): Z90.49 - Acquired absence of other specified parts of digestive tract Status: Acute (4) Acute respiratory failure: Code(s): J96.00 - Acute respiratory failure, unspecified whether with hypoxia or hypercapnia Status: Acute Assessment and Plan: Following surgery patient was placed on CPAP following extubation. ABG showed hypoxia and hypercarbia. He was transferred to ICU for this following surgery and placed on a BiPAP. He improved with treatment and was ultimately able to be weaned off the BiPAP and off oxygen all together prior to discharge. 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 Management per Cardiology. Scheduled for recheck of INR on discharge and follow-up with Cardiology for further instructions and adjustments. (8) H/O mechanical aortic valve replacement: Code(s): Z95.2 - Presence of prosthetic heart valve Status: Acute (9) BMI 40.0-44.9, adult: Code(s): Z68.41 - Body mass index [BMI]40.0-44.9, adult Status: Acute (10) DM2 (diabetes mellitus, type 2): Code(s): E11.9 - Type 2 diabetes mellitus without complications Status: Chronic Assessment and Plan: Stable. Continue medications. (11) Essential hypertension: Code(s): I10 - Essential (primary) hypertension Status: Chronic Assessment and Plan: Hypotensive initially due to hemorrhagic shock. Resolved following blood products, IV fluids, and surgery. Eventually was restarted on home medications and discharged without any changes to home medication. (12) MARY JANE (obstructive sleep apnea): Code(s): G47.33 - Obstructive sleep apnea (adult) (pediatric) Status: Chronic Assessment and Plan: On BIPAP while inpatient. Stable. Continue CPAP with previous home settings on discharge. DS: Summary Hospital Course Reason for hospitalization: Patient is a 46-year-old male status post laparoscopic cholecystectomy 04/01/21 for acute cholecystitis, who was discharged home the same day and presented back to the ER early the following morning (POD#1) with RUQ abdominal pain and right shoulder pain. He reports the pain was constant at home and ultimately is what brought him in. The patient is on warfarin due to a mechanical aortic valve replacement in 2017. Patient was found to have progressively worsening hypotension during evaluation in the ED. CT scan of the abdomen and pelvis showed a large amount of hemoperitoneum and active extravasation from the gallbladder fossa. He was restarted on his warfarin post-operatively and INR was 1.1 when arriving to the ER. Patient was taken to the OR for emergent exploratory laparoscopy on 04/02/[address] Hummel and he was admitted in this setting. Hospital Course: Patient found to be in hemorrhagic shock secondary to acute blood loss anemia with hypotension that responded to blood products and IV fluids. All anticoagulation was held. He underwent an exploratory laparoscopy, washout and evacuation of blood clot/hemoperitoneum, and clipping of actively bleeding vessel by Dr. Hummel on 04/02/21. He was found to have a bleeding arterial
== END 2021-04-07 16:52 | disposition home or self-care (01) | DRG 356 ==
LOC: ANHED 04:45 → ANH3MED 05:43 → ANHICU 10:32 → ANH3MED 04-05 00:21 → ANHICU 04-12 10:07
PROVIDERS: Internal Medicine; Nurse Practitioner Family; Surgery; Admitting Provider Surgery; Emergency Provider Emergency Medicine; PCP Internal Medicine; Visit Provider Internal Medicine
PROC: 0W3G4ZZ Control Bleeding in Peritoneal Cavity, Percutaneous Endoscopic Approach (ICD-10-PCS; CPT 49000; principal; 2021-04-02 08:30)
DX: K66.1 Hemoperitoneum (principal); R57.8 Other shock; J96.00 Acute respiratory failure, unspecified whether with hypoxia or hypercapnia; I42.9 Cardiomyopathy, unspecified; Z68.41 Body mass index [BMI] 40.0-44.9, adult; D62 Acute posthemorrhagic anemia; E66.01 Morbid (severe) obesity due to excess calories; G89.18 Other acute postprocedural pain; I71.4 Abdominal aortic aneurysm, without rupture; G47.33 Obstructive sleep apnea (adult) (pediatric); E78.5 Hyperlipidemia, unspecified; I11.0 Hypertensive heart disease with heart failure; I50.9 Heart failure, unspecified; E11.9 Type 2 diabetes mellitus without complications; I37.9 Nonrheumatic pulmonary valve disorder, unspecified; M25.511 Pain in right shoulder; R21 Rash and other nonspecific skin eruption; Z79.01 Long term (current) use of anticoagulants; Z79.82 Long term (current) use of aspirin; Z87.74 Personal history of (corrected) congenital malformations of heart and circulatory system; Z87.891 Personal history of nicotine dependence; Z90.49 Acquired absence of other specified parts of digestive tract; Z95.2 Presence of prosthetic heart valve
CPT/HCPCS: 36415; 36430; 36600; 71045; 71275; 73030; 74018; 74177; 80053; 82375; 82805; 82948; 83050; 83605; 84484; 85014; 85018; 85025; 85384; 85610; 85730; 86850; 86900; 86901; 86920; 86923; 88304; 93005; 94002; 94003; 96361; 96365; 96375; 96376; 97110; 97116; 97161; 97165; 97530; 97535; 99285; A9270; C1751; C9113; J0131; J0330; J0610; J0690; J1644; J1885; J2250; J2270; J2370; J2405; J2543; J2704; J2710; J3010; J7030; J7040; J7120; P9016; P9017; Q9967

== ENCOUNTER 2021-08-10 16:14 | Emergency (ER) | payer BC, SELFPAY ==
--- NOTE | ~2021-08-10 | CT_ITS ---
EXAMINATION: CT abdomen pelvis w con INDICATION: Diffuse abdominal pain TECHNIQUE: Computed tomographic images of the abdomen and pelvis were obtained after the administrati on of 100 cc of Omnipaque 350 intravenous contrast. The dose-length product (DLP) was 1571.54 mGy-cm. Automated exposure control and iterative reconstruction technique were employed. COMPARISON: 04/02/2021 FINDINGS: The lung bases are clear. The heart size is normal. The gallbladder is surgically absent. T here is a 4.3 x 2.7 cm subcapsular lesion of the medial right hepatic lobe which is new since the [facility] examination and most consistent with sequela of prior surgery. The spleen, pancreas, and adre nal glands are normal. The kidneys are unremarkable. No pathologically enlarged abdominal or pelvic l ymph nodes are identified. There is no free intraperitoneal gas or evidence of bowel obstruction. The re is moderate lumbar spondylosis. IMPRESSION: 1. No CT correlate for the patient's symptoms. Reviewed, dictated and finalized at location A.
[2021-08-10 16:27] VITALS: BP 119/80; PULSE 76; RESP 20; TEMP 36.1; O2SAT 99
[2021-08-10 17:08] LABS: Basophils Absolute Auto 0.2 K/mm3 (0.0-0.1); Basophils Percent Auto 0.9 % (0.2-1.2); Eosinophils Absolute Auto 0.5 K/mm3 (0-0.3); Hematocrit 47.3 % (42.0-52.0); Hemoglobin 15.4 g/dL (14.0-18.0); Immature Granulocyte Absolute 0.07 K/mm3 (0.00-0.031); Immature Granulocyte Percent A 0.4 % (0-0.5); Lymphocytes Percent Auto 8.5 % (18.3-44.2); Mean Corpuscular HGB Conc 32.6 g/dl (32-36); Mean Corpuscular Hemoglobin 26.8 pg (26-34); Mean Corpuscular Volume 82.3 fl (80-100); Mean Platelet Volume 10.5 fl (7.4-10.4); Monocytes Absolute Auto 1.1 K/mm3 (0.1-0.6); Monocytes Percent Auto 6.8 % (2.6-8.5); Neutrophils Absolute Auto 13.3 K/mm3 (1.3-6.7); Neutrophils Percent Auto 80.4 % (45.5-73.1); Platelet Count Result 290 k/mm3 (150-375); Red Blood Count 5.75 M/mm3 (4.6-6.20); Red Cell Distribution Width 17.5 % (11.5-14.5); White Blood Count 16.5 K/mm3 (4.5-10.0)
[2021-08-10 17:19] LABS: Alanine Aminotransferase 35 U/L (4-50); Albumin Level 4.9 g/dL (3.5-5.1); Alkaline Phosphatase 78 U/L (38-126); Anion Gap 13 mmol/L (8-16); Aspartate Amino Transferase 36 U/L (17-59); Bilirubin,Total 0.8 mg/dL (0.2-1.3); Blood Urea Nitrogen 21 mg/dL (9-20); Carbon Dioxide 19 mmol/L (22-30); Chloride 106 mmol/L (98-107); Estimated CRCL calculation 136 ml/min; Estimated Glomerular Filt Rate > 60; Glucose 137 mg/dL (65-110); Lipase 150 U/L (23-300); Sodium 138 mmol/L (137-145)
[2021-08-10 17:43] VITALS: BP 135/82; PULSE 67; RESP 16; O2SAT 97
--- NOTE | 2021-08-10 18:19 | ED.NAVMDI ---
HPI - Nausea/Vomiting/Diarrhea General Chief complaint: Nausea/Vomiting/Diarrhea Stated complaint: DIARRHEA Time Seen by Provider: 08/10/21 17:47 Source: patient and RN notes reviewed History of Present Illness HPI Narrative: Patient presents with diffuse abdominal pain. Reports symptoms been going on for the past few days and have been getting worse. Symptoms are associated with nausea but no vomiting. Symptoms also associated with diarrhea. Patient reports prior history of appendectomy and cholecystectomy. Denies any urinary symptoms, fevers, known sick contacts, recent antibiotics, recent camping trips or travel outside the area. Related Data Home Medications Medication Instructions Recorded Confirmed aspirin 81 mg chewable tablet 81 mg PO QAM 03/01/20 08/10/21 lisinopril 20 mg tablet 40 mg PO QAM 03/01/20 08/10/21 metoprolol tartrate 50 mg tablet 100 mg PO Q12H 03/01/20 08/10/21 atorvastatin 40 mg tablet 40 mg PO QAM 03/19/20 08/10/21 furosemide [Lasix] 20 mg PO DAILY PRN 03/21/21 08/10/21 amlodipine 5 mg tablet 5 mg PO DAILY 08/10/21 08/10/21 Allergies Allergy/AdvReac Type Severity Reaction Status Date / Time No Known Allergies Allergy Verified 04/15/21 09:21 Review of Systems Review of Systems: CONSTITUTIONAL: Denies fever, chills, or sweats. EYES: Denies visual changes, redness, or discharge. ENT: Denies rhinorrhea, congestion, sore throat, or otalgia. CARDIOVASCULAR: Denies chest pain, palpitations, or edema. RESPIRATORY: Denies cough or dyspnea. GASTROINTESTINAL: Reports abdominal pain nausea and diarrhea GENITOURINARY: Denies dysuria or hematuria. SKIN: Denies rash or itching. MUSCULOSKELETAL: Denies back pain, joint pain, or myalgia. NEUROLOGIC: Denies headache, numbness, dizziness, or weakness. PSYCHIATRIC: Denies anxiety or depression. All systems reviewed & are unremarkable except as noted in HPI and below PMFSH Past Medical History Medical History Ascending aortic aneurysm CT chest in February 2020 measured ascending aortic aneurysm of 5.2 cm. Bicuspid aortic valve S/p mechanical aortic valve replacement in July 2017 at [facility] CHF (congestive heart failure) ef 40-45% 03/02 Congenital heart defect Bicuspid aortic valve found when presenting with CHF in 2016 DM2 (diabetes mellitus, type 2) Essential hypertension Hyperlipidemia Morbid obesity Morbid obesity due to excess calories MARY JANE (obstructive sleep apnea) Pulmonary valve disorder Surgical History Surgical History History of aortic valve replacement July 2017 mechanical aortic valve replacement after having a failed aortic valve repair History of appendectomy Open appendectomy when in 4th grade Hx laparoscopic cholecystectomy Family History Family History Mother Hypertension Father Family history of diabetes mellitus in first degree relative Family history of cholecystectomy Grandparent Diabetes mellitus Family history of coronary artery disease Social History Social History Social History: The patient lives with his and she is a durable power document review attorney for healthcare. 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 He has 1 child, Nadia. His is the durable power document review attorney for healthcare. He is a full code. The patient occasionally uses alcohol but only socially. He does not use any marijuana or illicit drugs. He does not smoke use lifelong nonsmoker. He is of [place] descent. Smoking status: Former smoker Second hand tobacco smoke exposure: No Additional smoking assessment comments: STATES TRIED IN EARLY S DID NOT LIKE IT AND QUIT Alcohol intake: current Drinks per week: 6 Substance use: never Substance use type: does not use Gender id
[2021-08-10] MEDS: SODIUM CHLORIDE 0.9% IV 1,000 ML 999 ML IV CONT (18:36)
[2021-08-10 18:44] LABS: Add Urine Microscopic? NO; Appearance Urine Clear (Clear); Bilirubin Urine Negative (Negative); Blood Urine Negative (Negative); Color Urine Yellow (Yellow); Glucose Urine UA Negative (Negative); Ketones Urine Negative (Negative); Leukocyte Esterase Ur Negative LEU/UL (Negative); Nitrate Urine Negative (Negative); Protein Urine Negative (Negative); Specific Grav Ur 1.021 (1.001-1.035); Urobilinogen Urine Negative mg/dL (<2.0)
[2021-08-10 20:01] VITALS: BP 113/75; PULSE 80; RESP 16; O2SAT 98
[2021-08-10 20:32] VITALS: BP 114/70; PULSE 65; RESP 13; O2SAT 97
== END 2021-08-10 20:33 | disposition home or self-care (01) ==
PROVIDERS: Emergency Provider Emergency Medicine; PCP Internal Medicine
DX: R10.84 Generalized abdominal pain (principal); R19.7 Diarrhea, unspecified; R11.0 Nausea; D72.829 Elevated white blood cell count, unspecified; I42.9 Cardiomyopathy, unspecified; I50.9 Heart failure, unspecified; I11.0 Hypertensive heart disease with heart failure; E11.9 Type 2 diabetes mellitus without complications; E78.5 Hyperlipidemia, unspecified; E66.01 Morbid (severe) obesity due to excess calories; Z68.41 Body mass index [BMI] 40.0-44.9, adult; G47.33 Obstructive sleep apnea (adult) (pediatric); Z95.2 Presence of prosthetic heart valve; Z87.74 Personal history of (corrected) congenital malformations of heart and circulatory system; Z79.82 Long term (current) use of aspirin; Z79.01 Long term (current) use of anticoagulants; Z79.84 Long term (current) use of oral hypoglycemic drugs
CPT/HCPCS: 36415; 74177; 80053; 81003; 83690; 85025; 96360; 96361; 99284; J7030; Q9967

== ENCOUNTER 2024-04-24 13:23 | Outpatient (CLI) | payer BC, SELFPAY ==
--- NOTE | ~2024-04-24 | XR_ITS ---
XR knee RT 3V 04/24/2024 13:48 Indication: Knee pain Procedure: 3 views right knee Comparison: No prior studies for comparison. Findings: There is anatomic alignment. No fracture, subluxation or dislocation. No joint effusion. No foreign bodies. Impression: 1: No acute bone or joint abnormality. Reviewed, dictated and finalized at location B. Impression: 1: No acute bone or joint abnormality.
== END 2024-04-24 13:24 | disposition home or self-care (01) ==
LOC: ANHIMG 13:23
PROVIDERS: PCP Internal Medicine; Visit Provider Nurse Practitioner
DX: M25.561 Pain in right knee (principal)
CPT/HCPCS: 73562

== ENCOUNTER 2025-04-24 08:49 | Outpatient (CLI) | payer BC, SELFPAY ==
--- OUTSIDE RECORDS SUMMARY | 2025-03-18 07:49 | XMS_ITS | Clinical Summary ---
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 This disclosure is being madepursuant to the Care Everywhere program and may not contain all information available regarding this patient. Last updated 18.[facility] Allergies No known active allergies Medications * Be aware that medications may not be up to date on this document. Alwaysverify current medications with the patient. No known medications Active Problems No known active problems Family History Medical History Relation Name Comments Diabetes Father Hypertension Mother Relation Name Status Comments Father Mother Social History Tobacco Use Types Packs/Day Years Used Date Smoking Tobacco: Never Alcohol Use Standard Drinks/Week Comments No 0 (1 standard drink = 0.6 oz pur e alcohol) Sex and Gender Information Value Date Recorded Sex Assigned at Not on file Legal Sex Male 12:53 PM CDT Gender Identity Not on file Sexual Orientation Not on file Last Filed Vital Signs Vital Sign Reading Time Taken Comments Blood Pressure 142/68 11/29/2016 10:07 AM ORACLE OBIEE DEVELOPER Pulse 102 11/29/2016 10:07 AM ORACLE OBIEE DEVELOPER Temperature 37.9 C (100.2 F) 11/29/2016 10:07 AM ORACLE OBIEE DEVELOPER Respiratory Rate 20 11/29/2016 10:07 AM ORACLE OBIEE DEVELOPER Oxygen Saturation 97% 11/29/2016 10:07 AM ORACLE OBIEE DEVELOPER Inhaled Oxygen Concentration - - Weight 136.1 kg (300 lb) 11/29/2016 10:07 AM ORACLE OBIEE DEVELOPER Height 185.4 cm (6' 1) 11/29/2016 10:07 AM ORACLE OBIEE DEVELOPER Body Mass Index 39.58 11/29/2016 10:07 AM ORACLE OBIEE DEVELOPER Plan of Treatment Health Maintenance Due Date Last Done Comments COLOGUARD (AGES 45-75) - COL ON CA SCREENING 1974 COLON MONITORING 1974 COLONOSCOPY - COLON CA SCREENING 1974 CT COLONOGRAPHY - COLON CA SCREENING 1974 Colorectal Cancer Screening 1974 FIT - COLON CA SCREENING 1974 FLEX SIG - COLON CA SCREENING 1974 LIPID TESTING 1974 HIV SCREENING 1989 HEPATITIS C SCREENING 03/18/1992 DTAP/TDAP/TD VACCINES (1 - Tdap) 1993 HEPATITIS B VACCINE (1 of 3 - 19+ 3-dose series) 1993 PNEUMOCOCCAL VACCINE 50+ (1 of 1 - PCV) 2024 ZOSTER VACCINE (1 of 2) 2024 COVID-19 VACCINE (1 - 2023-2 5 season) 2024 DEPRESSION SCREENING 11/12/2024 INFLUENZA VACCINE (Season Ended) 2025 HIB VACCINE Aged Out No longer eligi ble based on patient's age to complete this topic HPV VACCINE Aged Out No longer eligi ble based on patient's age to complete this topic MENINGOCOCCAL (Group B) VACC INE SHARED DECISION-MAKING Aged Out No longer eligibl e based on patient's age to complete this topic MENINGOCOCCAL GROUPS A/C/Y/W VACCINE Aged Out No longer eligible b ased on patient's age to complete this topic Insurance [employer] Care Teams Perfume And Toilet Water Maker Relationship Specialty Start Date End Date Una Pennington MD PCP - General Family Medicine 07/14/16
--- OUTSIDE RECORDS SUMMARY | 2025-03-18 07:49 | XMS_ITS | Referral Summary ---
Author Organization [facility] Address [address] [place] [address] Care Team Providers Care Operation Agent Name Role Phone Guru Felix DO Primary Care Provider +1- [phone] Encounters Date Type Department Care Team Description 02/27/2025 Anticoagulation Visit [facility] Cardiology [address] [facility] [address] [place] [address] Tu Martin RN H/O mechanical aortic valve replacement (Primary Dx) 01/27/2025 Anticoagulation Visit [facility] Cardiology [address] [facility] [address] [place] [address] Chayito Alvarez RN H/O mechanical aortic valve replacement (Primary Dx) 12/29/2024 Anticoagulation Visit [facility] Cardiology [address] [place] [address] [address] [place] [address] Edna Oconnor RN H/O mechanical aortic valve replacement (Primary Dx) from Last 3 Months Allergies No known active allergies Medications aspirin 81 mg tablet Take 1 tablet (81 mg total) by mouth daily Active furosemide (LASIX) 20 mg tablet Take 1 tablet (20 mg total) by mouth as needed (as needed for swelling). 90 tablet 3 019 Active Additional Information Patient not taking.Reported on 07/01/2024 fenofibrate nanocrystallized (TRICOR) 145 mg tabletIndications:H ypertriglyceridemia Take 1 tablet (145 mg total) by mouth daily 90 tablet 3 019 Active Additional Information Patient not taking.Reported on 10/09/2023 lisinopriL (PRINIVIL,ZESTRIL) 40 mg tabletIndications:E ssential hypertension Take 1 tablet (40 mg total) by mouth daily 30 tablet 11 021 Active amLODIPine (NORVASC) 5 mg tabletIndications:A scending aortic aneurysm,Essential hypertension Take 1 tablet (5 mg total) by mouth daily 90 tablet 3 021 Active amoxicillin 500 mg tablet/capsuleIndic ations:H/O mechanical aortic valve replacement TAKE 4 CAPSULES(2000 MG) BY MOUTH 1 HOUR BEFORE PROCEDURE 4 tablet/cap lyn 5 024 Active Additional Information Patient not taking.Reported on 07/01/2024 metFORMIN (GLUCOPHAGE) 500 mg tablet Take 1 tablet (500 mg total) by mouth 2 (two) times a day Active tadalafiL (CIALIS) 20 mg tablet Take 1 tablet (20 mg total) by mouth daily as needed for erectile dysfunction Active metoprolol (LOPRESSOR) 100 mg tabletIndications:A scending aortic aneurysm TAKE 1 TABLET(100 MG) BY MOUTH TWICE DAILY 180 tablet 2 024 Active atorvastatin (LIPITOR) 40 mg tablet TAKE 1 TABLET(40 MG) BY MOUTH DAILY 90 tablet 1 025 Active warfarin (COUMADIN) 2 mg tablet TAKE 3 TABLETS BY MOUTH EVERY DAY 90 tablet 025 Active warfarin (COUMADIN) 2 mg tablet TAKE 3 TABLETS BY MOUTH EVERY DAY 90 tablet 025 2024 Discontinued Active Problems Problem Noted Date Diagnosed Date MARY JANE (obstructive sleep apnea) 08/02/2021 Abnormal stress test 08/02/2021 Prediabetes 02/04/2021 RUIZ (dyspnea on exertion) 02/02/2020 Essential hypertension 02/02/2020 Hypertriglyceridemia 10/28/2018 Morbid obesity with BMI of 40.0-44.9, adult 02/2018 H/O mechanical aortic valve replacement 09/14/20 17 Overview (09/14/2017): [facility] aortic valve replacement 2017 for bicuspid aortic valve and severe AI. EF 30% w/ CHF pre-operatively. Dilated ascending aorta. Assessment & Plan (09/14/2017 2:46 PM CDT): [facility] aortic valve replacement 2016 for bicuspid aortic valve and severe AI. EF 30% w/ CHF pre-operatively. Dilated ascending aorta. Bicuspid aortic valve 09/14/2017 Ascending aortic aneurysm 09/14/2017 Overview (09/14/2017): Dilated ascending aorta, not bad enough to require repair at time of AVR. Assessment & Plan (09/14/2017 2:49 PM CDT): Dilated ascending aorta, not bad enough to require repair at time of AVR. Chronic anticoagulation 09/14/2017 Dilated cardiomyopathy 09/05/2017 Resolved Problems Problem Noted Date Diagnosed Date Resolved Date Sleep disorder breathing 06/24/2018 Viral URI 01/13/2018 06/30/2018 Obesity (BMI 30-39.9) 09/14/20172017 Chronic diastolic congestive heart failure 09/05/2017 09/05/2017 Aortic aneurysm 07/17/2017 11/02/2018 Congenital heart defect 02/2018 Enlarged heart 06/30/2018 Social History Tobacco Use Types Packs/Day Years Used Date Smoking Tobacco: Never Smokeless Tobacco: Never Tobacco Cessation:Counseling Given: Not Answered Alcohol Use Standard Drinks/Week Comments Yes 0 (1 standard drink = 0.6 oz pur e alcohol) Personal Safety Answer Date Recorded Getting School Help Needed Not on file 10/24 Sex and Gender Information Value Date Recorded Sex Assigned at Not on file Legal Sex Male 8:45 AM CDT Gender Identity Not on file Sexual Orientation Not on file Last Filed Vital Signs Vital Sign Reading Time Taken Comments Blood Pressure 128/72 07/01/2024 2:10 PM CDT Pulse 89 07/01/2024 2:10 PM CDT Temperature 36.7 C (98 F) 03/15/2021 10:29 AM CDT Respiratory Rate 14 04/10/2023 1:04 PM CDT Oxygen Saturation 94% 07/01/2024 2:10 PM CDT Inhaled Oxygen Concentration - - Weight 155.4 kg (342 lb 11.2 oz) 07/01/2024 2:10 PM CDT Height 185.4 cm (6' 1) 07/01/2024 2:10 PM CDT Body Mass Index 45.21 07/01/2024 2:10 PM CDT Plan of Treatment Not on file Medical Devices Implanted Type Area Head Stock Operator Device Identifier Shelf Expiration Date Model / Serial / Lot St Prince Aortic Valve Aortic Valve Procedures Procedure Name Priority Date/Time Associated Diagnosis Comments PROTIME-INR Routine 02/26/2025 PROTIME-INR Routine 01/26/2025 PROTIME-INR Routine 12/27/2024 from Last 3 Months Results * (ABNORMAL) Protime-INR (02/26/2025) INR 1.70(A) 0.90 - 1.10 EXTERNAL LAB Blood 02/26/2025 Result [facility] Provider MD LAB BLOOD ORDERABLES Tabby l Result EXTERNAL LAB * (ABNORMAL) Protime-INR (01/26/2025) INR 2.70(A) 0.90 - 1.10 EXTERNAL LAB Blood Result [facility] Provider MD LAB BLOOD ORDERABLES Tabby l Result EXTERNAL LAB * (ABNORMAL) Protime-INR (12/27/2024) INR 2.30(A) 0.90 - 1.10 EXTERNAL LAB Blood Result [facility] Historical Provider MD LAB BLOOD ORDERABLES Tabby l Result EXTERNAL LAB from Last 3 Months Insurance BLUE ACCESS OOS [place] ACCESS [place] BLUE ACCESS OOS ANTH ACCESS Care Teams Operation Agent Relationship Specialty Start Date End Date Guru Felix DO PCP - General Internal Medicine 01/08/18
--- OUTSIDE RECORDS SUMMARY | 2025-03-18 07:50 | XMS_ITS | Clinical Summary ---
Author Organization [facility] Address [address] [place] [address] Care Team Providers Care Fuel Pilot Engineer Name Role Phone Guru Felix DO Primary Care Provider +1- [phone] Allergies No known active allergies Medications aspirin [...] by mouth 2 (two) times a day 024 Active tadalafiL (CIALIS) 20 mg tablet Take [...] Overview (09/14/2017): [facility] aortic valve replacement 2016 for [...] Aortic aneurysm 07/17/2017 11/02/2018 Congenital heart defect 03/0 02/2018 Enlarged heart 06/30/2018 Encounters Date Type Department Care Team Description 02/27/2025 Anticoagulation Visit [facility] Cardiology [address] [place] [address] Tu Martin RN H/O mechanical aortic valve replacement (Primary Dx) 01/27/2025 Anticoagulation Visit [facility] Cardiology [address] [facility] [address] [place] [address] Chayito Alvarez RN H/O mechanical aortic valve replacement (Primary Dx) 12/29/2024 Anticoagulation Visit [facility] Cardiology [address] [place] [address] Edna Oconnor RN H/O mechanical aortic valve replacement (Primary Dx) from Last 3 Months Surgical History Surgery Date Site/Laterality Comments VALVE REPLACEMENT 07/13/2017 - 08/11/2017 Severe AI, s/p [facility] AVR Dr. Sterling Medical History Medical History Date Comments Congenital heart defect Enlarged heart Bicuspid aortic valve 07/2017 S/P [facility] mechanical aortic valve, Dr. Sterling. Severe CHF and AI pre-op. Ascending aortic aneurysm 2016 Family History Medical History Relation Name Comments Diabetes Father Hypertension Mother Diabetes Paternal Grandmother Relation Name Status Comments Father Mother Paternal Grandmother Social History Tobacco Use Types Packs/Day Years [...] on file Sexual Orientation Not on file Obstetrics History Last Filed Vital Signs Vital Sign Reading [...] 07/01/2024 2:10 PM CDT Plan of Treatment Health Maintenance Due Date Last Done Comments Colon Cancer Screening-Colonoscopy 1974 Depression Screening 1974 Hepatitis C Screening 1974 Prostate Cancer Screening-PSA 1974 DTaP/Tdap/Td Vaccine (1 - Tdap) 1985 Hepatitis B Screening 1992 Regular Well Visit/Exam 18-64 1992 Zoster Vaccine (1 of 2) 2024 Influenza Vaccine (Season Ended) 2025 10/31/2017, 07/22/2014, 08/23/2013 Pneumococcal vaccine <65 Aged Out No longer eligible based on patient's age to complete this topic Medical Devices Implanted Type Area Kiln Puller Device Identifier Shelf Expiration Date Model / Serial / Lot St Prince Aortic Valve Aortic Valve Procedures Procedure Name Priority Date/Time Associated Diagnosis Comments PROTIME-INR Routine 02/26/2025 PROTIME-INR Routine 01/26/2025 PROTIME-INR Routine 12/27/2024 from Last 3 Months Results * (ABNORMAL) Protime-INR (02/26/2025) INR 1.70(A) 0.90 - 1.10 EXTERNAL LAB Blood 02/26/2025 us Historical Provider MD LAB BLOOD ORDERABLES Tabby l Result EXTERNAL LAB * (ABNORMAL) Protime-INR (01/26/2025) INR 2.70(A) 0.90 - 1.10 EXTERNAL LAB Blood Historical Provider MD LAB BLOOD ORDERABLES Tabby l Result EXTERNAL LAB * (ABNORMAL) Protime-INR (12/27/2024) INR 2.30(A) 0.90 - 1.10 EXTERNAL LAB Blood Historical Provider MD LAB BLOOD ORDERABLES Tabby l Result EXTERNAL LAB from Last 3 Months Insurance [employer] OOS [employer] [place] ITDatabase ACCESS OOS ANTHEM ACCESS Care Teams Fuel Pilot Engineer Relationship Specialty Start Date End Date Guru Felix DO PCP - General Internal Medicine 01/08/18
--- OUTSIDE RECORDS SUMMARY | 2025-03-18 07:50 | XMS_ITS | Clinical Summary ---
Author Organization [facility] Address [facility] [place] [address] Care Team Providers Care Disc Jockey Name Role Phone Unavailable Primary Care Provider Unavailabl e Social History Tobacco Use Types Packs/Day Years Used Date Smoking Tobacco: Never Assessed Sex and Gender Information Value Date Recorded Sex Assigned at Not on file Legal Sex Male 5:46 PM CDT Gender Identity Not on file Sexual Orientation Not on file Plan of Treatment Health Maintenance Due Date Last Done Comments Colorectal Cancer Screening Colonoscopy (10 Years) 1974 Annual Physical 1977 Hepatitis C 1992 DTaP, Tdap and Td Vaccines ( 1 - Tdap) 1993 Hepatitis B Vaccines (1 of 3 - 19+ 3-dose series) 1993 Pneumococcal Vaccine: 50+ Ye ars (1 of 1 - PCV) 2024 Zoster Vaccines (1 of 2) 2024 COVID-19 Vaccine (1 - 2023-2 5 season) 2024 Meningococcal B Vaccine Aged Out No l onger eligible based on patient's age to complete this topic Meningococcal Vaccine Aged Out No mejia siobhan eligible based on patient's age to complete this topic RSV Immunizations Under 20 Months Aged Out No longer eligible based on patient's age to complete this topic
--- OUTSIDE RECORDS SUMMARY | 2025-04-10 07:47 | XMS_ITS | Clinical Summary ---
Author Organization [facility] Address [address] [facility] [place] [address] Care Team Providers Care Otr Owner Operator Name Role Phone Una Pennington MD Primary Care Provider [phone] Source Comments [facility],non-owned Affiliates and Associated Physician Practices is amultiple site organization consisting of ambulatory clinics and hospital sitesin [place], [place], [place] and [place]. This disclosure is being madepursuant to the Care Everywhere program and may not contain all information available regarding this patient. Last updated 18.[facility] Allergies No known active allergies Medications * [...] Comments Blood Pressure 142/68 11/29/2016 10:07 AM LAUNDRY SUPERINTENDENT Pulse 102 11/29/2016 10:07 AM LAUNDRY SUPERINTENDENT Temperature 37.9 C (100.2 F) 11/29/2016 10:07 AM LAUNDRY SUPERINTENDENT Respiratory Rate 20 11/29/2016 10:07 AM LAUNDRY SUPERINTENDENT Oxygen Saturation 97% 11/29/2016 10:07 AM LAUNDRY SUPERINTENDENT Inhaled Oxygen Concentration - - Weight 136.1 kg (300 lb) 11/29/2016 10:07 AM LAUNDRY SUPERINTENDENT Height 185.4 cm (6' 1) 11/29/2016 10:07 AM LAUNDRY SUPERINTENDENT Body Mass Index 39.58 11/29/2016 10:07 AM LAUNDRY SUPERINTENDENT Plan of Treatment Health Maintenance Due Date [...] complete this topic Insurance TREVER Care Teams Otr Owner Operator Relationship Specialty Start Date End Date Una Pennington MD PCP - General Family Medicine 07/14/16
--- OUTSIDE RECORDS SUMMARY | 2025-04-10 07:47 | XMS_ITS | Clinical Summary ---
Author Organization [facility] Address [address] [place] [address] Care Team Providers Care Division Commander Name Role Phone Guru Felix DO Primary Care Provider [phone]- [phone] Allergies No known active allergies Medications aspirin [...] Aortic aneurysm 07/17/2017 11/02/2018 Congenital heart defect 03/02/2018 Enlarged heart 06/30/2018 Encounters Date Type Department Care Team Description 04/07/2025 Anticoagulation Visit [facility] Cardiology [address] [facility] [address] [place] [address] Chayito Alvarez RN H/O mechanical aortic valve replacement (Primary Dx) 02/27/2025 Anticoagulation Visit [facility] Cardiology [address] [place] [address] Tu Martin RN H/O mechanical aortic valve replacement (Primary Dx) 01/27/2025 Anticoagulation Visit [facility] Cardiology [facility] [facility] [address] [place] [phone] Chayito Alvarez RN H/O mechanical aortic valve [...] CHF and AI pre-op. Ascending aortic aneurysm 2017 Family History Medical History Relation Name Comments [...] this topic Medical Devices Implanted Type Area Pipe Tester Device Identifier Shelf Expiration Date Model / Serial / Lot St Prince Aortic Valve Aortic Valve Procedures Procedure Name Priority Date/Time Associated Diagnosis Comments PROTIME-INR Routine 04/06/2025 PROTIME-INR Routine 02/26/2025 PROTIME-INR Routine 01/26/2025 from Last 3 Months Results * (ABNORMAL) Protime-INR (04/06/2025) INR 2.10(A) 0.90 - 1.10 EXTERNAL LAB Blood us Historical Provider LAB BLOOD ORDERABLES Tabby l Result EXTERNAL LAB * (ABNORMAL) Protime-INR (02/26/2025) INR 1.70(A) 0.90 - 1.10 EXTERNAL LAB Blood 02/26/2025 Historical Provider MD LAB BLOOD ORDERABLES Tabby l Result EXTERNAL LAB * (ABNORMAL) Protime-INR (01/26/2025) INR 2.70(A) 0.90 - 1.10 EXTERNAL LAB Blood Historical Provider MD LAB BLOOD ORDERABLES Tabby l Result EXTERNAL LAB from Last 3 Months Insurance [employer] OOS [employer] [place] Elastera ACCESS OOS ANTH ACCESS Care Teams Division Commander Relationship Specialty Start Date End Date Guru Felix DO PCP - General Internal Medicine 01/08/18
--- OUTSIDE RECORDS SUMMARY | 2025-04-10 07:47 | XMS_ITS | Referral Summary ---
Author Organization [facility] Address [address] [place] [address] Care Team Providers Care Meteorological Equipment Repairer Name Role Phone Guru Felix DO Primary Care Provider [phone]- [phone] Encounters Date Type Department Care Team Description 04/07/2025 Anticoagulation Visit [facility] Cardiology [address] [place] [address] [place] [phone] Chayito Alvarez RN H/O mechanical aortic valve replacement (Primary Dx) 02/27/2025 Anticoagulation Visit [facility] Cardiology [address] [place] [address] [address] [place] [phone] Tu Martin RN H/O mechanical aortic valve replacement (Primary Dx) 01/27/2025 Anticoagulation Visit [facility] Cardiology [address] [place] [address] [place] [address] Chayito Alvarez RN H/O mechanical aortic [...] on file Medical Devices Implanted Type Area Concrete Buildings Assembler Device Identifier Shelf Expiration Date Model / Serial / Lot St Prince Aortic Valve Aortic Valve Procedures Procedure Name Priority Date/Time Associated Diagnosis Comments PROTIME-INR Routine 04/06/2025 PROTIME-INR Routine 02/26/2025 PROTIME-INR Routine 01/26/2025 from Last 3 Months Results * (ABNORMAL) Protime-INR (04/06/2025) INR 2.10(A) 0.90 - 1.10 EXTERNAL LAB Blood Result [facility] Historical Provider MD LAB BLOOD ORDERABLES Tabby l Result EXTERNAL LAB * (ABNORMAL) Protime-INR (02/26/2025) INR 1.70(A) 0.90 - 1.10 EXTERNAL LAB Blood 02/26/2025 Result [facility] Historical Provider MD LAB BLOOD ORDERABLES Tabby l Result EXTERNAL LAB * (ABNORMAL) Protime-INR (01/26/2025) INR 2.70(A) 0.90 - 1.10 EXTERNAL LAB Blood Result [facility] Historical Provider MD LAB BLOOD ORDERABLES Tabby l Result EXTERNAL LAB from Last 3 Months Insurance BLUE ACCESS [place] ACC[place] OOS ANTH ACCESS Care Teams Meteorological Equipment Repairer Relationship Specialty Start Date End Date Guru Felix DO PCP - General Internal Medicine 01/08/18
--- OUTSIDE RECORDS SUMMARY | 2025-04-24 08:54 | XMS_ITS | Clinical Summary ---
Author Organization [facility] Address [address] [place] [address] Care Team Providers Care Machinist Name Role Phone Guru Felix DO Primary Care Provider [phone]- [phone] Allergies No known active allergies Medications aspirin [...] Department Care Team Description 04/07/2025 Anticoagulation Visit [facility] Cardiology [address] [facility] [address] [place] [address] Chayito Alvarez RN H/O mechanical aortic valve replacement (Primary Dx) 02/27/2025 Anticoagulation Visit [facility] Cardiology [address] [place] [address] Tu Martin RN H/O mechanical aortic valve replacement (Primary Dx) 01/27/2025 Anticoagulation Visit [facility] Cardiology [facility] [address] [place] [phone] Chayito Alvarez RN H/O mechanical aortic valve [...] this topic Medical Devices Implanted Type Area Self Propelled Mining Machine Operator Device Identifier Shelf Expiration Date Model [...] EXTERNAL LAB from Last 3 Months Insurance [employer] OOS [employer] [place] mParticle ACCESS OOS ANTH ACCESS Care Teams Machinist Relationship Specialty Start Date End Date Guru Felix DO PCP - General Internal Medicine 01/08/18
--- OUTSIDE RECORDS SUMMARY | 2025-04-24 08:54 | XMS_ITS | Referral Summary ---
Author Organization [facility] Address [address] [place] [address] Care Team Providers Care Residential Property Tax Appraiser Name Role Phone Guru Felix DO Primary Care Provider +1- [phone] Encounters Date Type Department Care Team Description 04/07/2025 Anticoagulation Visit [facility] Cardiology [address] [place] [address] [place] [phone] Chayito Alvarez RN H/O mechanical aortic valve replacement (Primary Dx) 02/27/2025 Anticoagulation Visit [facility] Cardiology [address] [place] [address] [address] [place] [phone] Tu Martin RN H/O mechanical aortic valve replacement (Primary Dx) 01/27/2025 Anticoagulation Visit [facility] Cardiology [address] [place] [address] [place] [address] Chayito Alvarez RN H/O mechanical aortic [...] on file Medical Devices Implanted Type Area Shipper Device Identifier Shelf Expiration Date Model / Serial / Lot St Prince Aortic Valve Aortic Valve Procedures Procedure Name Priority Date/Time Associated Diagnosis Comments PROTIME-INR Routine 04/06/2025 PROTIME-INR Routine 02/26/2025 PROTIME-INR Routine 01/26/2025 from Last 3 Months Results * (ABNORMAL) Protime-INR (04/06/2025) INR 2.10(A) 0.90 - 1.10 EXTERNAL LAB Blood Result [facility] Historical Provider MD LAB BLOOD ORDERABLES Tabby l Result EXTERNAL LAB * (ABNORMAL) Protime-INR (02/26/2025) INR 1.70(A) 0.90 - 1.10 EXTERNAL LAB Blood 02/26/2025 Result [facility] Historical Provider MD LAB BLOOD ORDERABLES Tabby l Result EXTERNAL LAB * (ABNORMAL) Protime-INR (01/26/2025) INR 2.70(A) 0.90 - 1.10 EXTERNAL LAB Blood Result [facility] Historical Provider MD LAB BLOOD ORDERABLES Tabby l Result EXTERNAL LAB from Last 3 Months Insurance BLUE ACCESS [place] ACC[place] OOS ANTH ACCESS Care Teams Residential Property Tax Appraiser Relationship Specialty Start Date End Date Guru Felix DO PCP - General Internal Medicine 01/08/18
--- OUTSIDE RECORDS SUMMARY | 2025-04-24 08:54 | XMS_ITS | Clinical Summary ---
Author Organization [facility] [employer] Address [address] [place] [address] Care Team Providers Care Stone Banker Name Role Phone Una Pennington MD Primary Care Provider +1- [phone] Source Comments [facility] [employer],non-owned Affiliates and Associated Physician Practices is amultiple site organization consisting of ambulatory clinics and hospital sitesin [place], [place], [place] and [place]. This disclosure is being madepursuant to the Care Everywhere program and may not contain all information available regarding this patient. Last updated 18.[facility] [employer] Allergies No known active allergies Medications * [...] Comments Blood Pressure 142/68 11/29/2016 10:07 AM INTERNET MERCHANT Pulse 102 11/29/2016 10:07 AM INTERNET MERCHANT Temperature 37.9 C (100.2 F) 11/29/2016 10:07 AM INTERNET MERCHANT Respiratory Rate 20 11/29/2016 10:07 AM INTERNET MERCHANT Oxygen Saturation 97% 11/29/2016 10:07 AM INTERNET MERCHANT Inhaled Oxygen Concentration - - Weight 136.1 kg (300 lb) 11/29/2016 10:07 AM INTERNET MERCHANT Height 185.4 cm (6' 1) 11/29/2016 10:07 AM INTERNET MERCHANT Body Mass Index 39.58 11/29/2016 10:07 AM INTERNET MERCHANT Plan of Treatment Health Maintenance Due Date [...] complete this topic Insurance TREVER Care Teams Stone Banker Relationship Specialty Start Date End Date Una Pennington MD PCP - General Family Medicine 07/14/16
--- NOTE | 2025-05-20 10:05 | WPDSLEEPSTUD ---
Sleep Study Date of Study: 04/24/25 Ordering Provider: Solo Henriquez APRN Interpreting Physician: Mariam Guaman DO Sleep Study Type: Split Polysomnogram Height: 1.85 m Weight: 145.15 kg Body Mass Index: 42.2 Neck Circumference (inches): 20 [place]: 8 Reason for Sleep Study Difficulty maintaining sleep, nocturia Sleep History The patient is a 50-year-old male that had a sleep study ordered by the pulmonary group for evaluation of sleep apnea. The patient rarely awakens from sleep short of breath. He occasionally awakens at night with heartburn, belching or cough. He occasionally snores and is occasionally loud enough that others complain. He constantly has trouble sleeping when he has a cold. He occasionally wakes up gasping for air throughout the night. He frequently has breathing problems at night observed by himself or others. He rarely sweats excessively at night. He rarely has heart palpitations or irregular heartbeats during the night. He frequently falls asleep during the day but never while driving. He denies sleep paralysis, cataplexy and hypnagogic/ hypnopompic hallucinations. He occasionally has trouble at school or work due to sleepiness. He denies feeling afraid of going to sleep. He denies having nightmares. He denies remembering his dreams. He frequently has thoughts racing through his mind. He rarely feels sad, depressed or anxious. He denies having muscular tension. He frequently notices parts of his body jerk. He frequently kicks during the night. He frequently has crawling and aching feelings in his legs and constantly has leg pain during the night. He denies grinding his teeth during sleep and denies awakening with morning jaw pain. He constantly bothered by pain during the day and constantly awakened by pain during the night. He constantly wakes up feeling stiff in the morning. He constantly wakes up with sore or achy muscles. He frequently wakes up with pain in the neck, spine and other joints. He goes to bed at 9:00 p.m. on weekdays and at 10:00 p.m. on the weekends. It takes him greater than 2 hours to fall asleep. He wakes up 4-6 times throughout the night to urinate or due to pain. He is able to fall back asleep within 15 minutes. He wakes up at 7:00 a.m. every morning. He typically gets 4-6 hours of sleep per night. He will stay in bed for 30 after waking up in the morning. He currently lives with his and child. He does work split shifts or a rotating shift schedule. He denies consuming any caffeinated beverages within 2 hours of bedtime. He denies engaging in physical exercise before bedtime. He will watch television before falling asleep. He will take naps in afternoon or the evening but they are not refreshing. He consumes 40 oz of caffeinated beverage per day. He consumes a 6 pack of alcohol per day. He denies tobacco and recreational drug use. [facility] Past Medical History Medical History Morbid obesity due to excess calories CHF (congestive heart failure) ef 40-45% 03/02 DM2 (diabetes mellitus, type 2) Hyperlipidemia Congenital heart defect Bicuspid aortic valve found when presenting with CHF in 2016 Bicuspid aortic valve S/p mechanical aortic valve replacement in July 2017 at [facility] Ascending aortic aneurysm CT chest in February 2020 measured ascending aortic aneurysm of 5.2 cm. 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 He has 1 child, Nadia. His is the durable power commercial litigation attorney for healthcare. He is a full code. The patient occasionally uses alcohol but only socially. He does not use any marijuana or illicit drugs. He does not smoke use lifelong nonsmoker. He is of [place] descent. Smoking status: Former smoker Second hand tobacco smoke exposure: No Additional smoking assessment comments: STATES TRIED IN EARLY DID NOT LIKE IT AND QUIT Alcohol intake: current Drinks per week: 6 Substance use: never Substance use type: does not use Lack of Transportation: No Lack of Food: Never True Current Housing: I Have Housing Concerned About Future Housing: No Difficulty Paying Gas/Electric Bills: No Difficulty Paying for Meds: No Currently Unemployed: No Education: High School Diploma/GED Difficulty w/ Childcare or Family Care: No Living arrangements: with family Gender identity (if verbalized by the patient): Male Spiritual care concerns: No Medications Home Medications ?Medication ?Instructions ?Recorded ?Confirmed ?Type aspirin 81 mg chewable tablet 81 mg PO QAM 03/01/20 05/06/25 History warfarin 4 mg tablet 8 mg (2 x 4 mg) PO QPM #0 tabs 04/07/21 05/06/25 Rx atorvastatin 40 mg tablet 40 mg PO QAM #90 tabs 03/16/22 05/06/25 Rx acetaminophen 500 mg capsule 1,000 mg PO Q6H PRN 09/28/22 05/06/25 History metoprolol tartrate 50 mg tablet See Rx Instructions .Route 01/10/23 05/06/25 Rx .COMPLEX #380 tabs tadalafil 20 mg tablet (Cialis) 20 mg PO DAILY PRN sexual activity 10/21/24 05/06/25 Rx #30 tabs amlodipine 5 mg tablet 5 mg PO DAILY #90 tabs 12/01/24 05/06/25 Rx lisinopril 20 mg tablet 40 mg (2 x 20 mg) PO QAM #180 tabs 02/17/25 05/06/25 Rx tirzepatide 10 mg/0.5 mL 10 mg (0.5 mL) subcut WEEKLY #2 mL 05/06/25 05/06/25 Rx subcutaneous pen injector (Mounjaro) Sleep Procedure A full night split study using the [employer] multi-channel system recorded the standard physiologic parameters including EEG, EOG, submentalis EMG, anterior tibialis EMG, EKG, body position, nasal and oral airflow using nasal pressure sensor and thermistor.? Respiratory parameters of chest and abdominal movements were recorded with Respiratory Inductance Plethysmography belts. Oxygen saturation was recorded by pulse oximetry. Video monitoring was also performed. Sleep stages, periodic limb movements, and EEG arousals were scored in 30 second epochs according to the criteria of the AASM Scoring Manual. The Apnea-Hypopnea Index was calculated using [facility] guidelines for definition of hypopnea with 4% O2 desaturations while scoring respiratory events. Sleep Architecture During the diagnostic portion of the study, the total recording time was 178.5 minutes. The total sleep time was 122.0 minutes. Sleep latency was 5.5 minutes.? REM sleep was not achieved during this portion of the study. Sleep Efficiency was 68.4%. The patient had 18 awakenings for an awakening index of 8.9. Wake after sleep onset time was 51.0 minutes. The patient spent 26.0 minutes, 21.3% of total sleep time in Stage N1. The patient spent 95.0 minutes, 77.9% in Stage N2. The patient spent 1.0 minutes, 0.8% in Stage N3. The patient spent 0.0 minutes, 0.0% in Stage REM sleep. At 01:28:03 AM the patient was placed on PAP treatment and was titrated at pressures ranging from 5 cm H20 up to 14/9 cm H20. During the treatment portion of the study, the total recording time was 302.4 minutes.? The total sleep time was 191.5 minutes. Sleep latency was 58.0 minutes. REM latency was 88.5 minutes. Sleep Efficiency was 63.3%. Wake after Sleep Onset time was 53.0 minutes. The patient spent 22.0 minutes, 11.5% of total sleep time in Stage N1. The patient spent 121.0 minutes, 63.2% in Stage N2. The patient spent 4.5 minutes, 2.3% in Stage N3. The patient spent 44.0 minutes, 23.0% in Stage REM. Respiratory Analysis During the diagnostic portion of the study, the patient had 38 hypopneas for an overall Apnea Hypopnea Index of 18.7 events per hour. The REM Apnea Hypopnea Index was 0. The NREM Apnea Hypopnea Index was 18.7. The patient had a Central Apnea Hypopnea Index of 0. There was no evidence of Cosme-Schroeder Respirations. During the treatment portion of the study, the patient had 17 hypopneas for an overall Apnea Hypopnea Index of 5.3 events per hour. The REM Apnea Hypopnea Index was 13.6. The NREM Apnea Hypopnea Index was 2.8. The patient had a Central Apnea Hypopnea Index of 0. There was no evidence of Cosme-Schroeder Respirations. The patient was started on CPAP 5 cm H2O and titrated to BPAP 14/9 cm H2O due to hypopneas. The patient was able to fall asleep starting on BPAP 11/7 cm H2O. The patient was able to achieve REM sleep starting on BPAP 11/7 cm H2O. The patient was able to achieve a residual AHI less than 5 with both NREM and REM sleep on BPAP 13/8 cm H2O. On BPAP 13/8 cm H2O, the patient spent 43 minutes in NREM and 15.5 minutes in REM with 4 hypopneas, resulting in an AHI of 4.1. The patient had a sleep efficiency of 94.4% on this pressure setting. Arousals During the diagnostic portion of the study, there were a total of 177 arousals for an arousal index of 87.0.? There were 35 respiratory arousals for an index of 17.2. There were 108 periodic limb movement arousals for an index of 53.1.? There were 7 isolated limb movement arousals for an index of 3.4. There were 28 spontaneous arousals for an index of 13.8. During the treatment portion of the study, there were a total of 165 arousals for an index of 51.7.? There were 6 respiratory arousals for an index of 1.9. There were 129 periodic limb movement arousals for an index of 40.4.? There were 10 isolated limb movement arousals for an index of 3.1. There were 23 spontaneous arousals for an index of 7.2. Periodic Limb Movements During the diagnostic portion of the study, the patient had 15 isolated limb movements with an index of 7.4. The patient had 338 periodic limb movements with an index of 166.2, which is elevated (normal < 15). The patient had a total of 353 limb movements with a total limb movement index of 173.6. During the treatment portion of the study, the patient had 20 isolated limb movements with an index of 6.3. The patient had 467 periodic limb movements with an index of 146.3, which is elevated (normal < 15). The patient had a total of 487 limb movements with a total limb movement index of 152.6. Oximetry Data During the diagnostic portion of the study, the patient had an average oxygen saturation of 92.5% in wake with a minimum oxygen saturation of 88% and a maximum oxygen saturation of 98%. The patient had an average oxygen saturation of 92.0% in sleep with a minimum oxygen saturation of 86.0% and a maximum oxygen saturation of 97.0%. The patient had 44 oxygen desaturations resulting in an Oxygen Desaturation Index of 21.6. The patient spent 1 minute, 0.6% of total sleep time with an oxygen saturation less than 88%. During the treatment portion of the study, the patient had an average oxygen saturation of 94.6% in wake with a minimum oxygen saturation of 89.0% and a maximum oxygen saturation of 99.0%. The patient had an average oxygen saturation of 93.9% in sleep with a minimum oxygen saturation of 89.0% and a maximum oxygen saturation of 98.0%. The patient had 25 oxygen desaturations resulting in an Oxygen Desaturation Index of 7.8. The patient spent 0 minutes of total sleep time with an oxygen saturation less than 88%. Snoring Profile Snoring was present intermittently during the baseline portion of the study. The snoring resolved once the patient was started on BPAP therapy. Cardiac Profile The EKG lead showed normal sinus rhythm with occasional PVCs. During the diagnostic portion of the study, the average pulse rate was 72.0 bpm.? The minimum pulse rate was 63.0 bpm. The maximum pulse rate was 96.0 bpm. During the treatment portion of the study, the average pulse rate was 73.2 bpm.? The minimum pulse rate was 63.0 bpm. The maximum pulse rate was 98.0 bpm. EEG Profile No signs of seizure activity seen. Assessment and Plan Assessment and Plan (1) MARY JANE (obstructive sleep apnea): Code(s): G47.33 - Obstructive sleep apnea (adult) (pediatric) Status: Chronic Assessment and Plan: In the baseline portion of the study, the patient had an overall AHI of 18.7 with desaturation down to 86%. This is consistent with moderate sleep apnea. The patient was started on CPAP 5 cm H2O and titrated to BPAP 14/9 cm H2O due to hypopneas. We were able to find a pressure setting that resolved his sleep apnea with a high sleep efficiency. I recommend that the patient be prescribed BPAP 13/8 cm H2O, size large Resmed AirTouch F20 full face mask, BPAP filters/tubing and heated humidity. This should be used with all episodes of sleep.? Compliance should be reviewed within 31-90 days of starting therapy for usage greater than 4 hours per night greater than 70% of the nights. The patient should be asked about symptoms such as?excessive daytime sleepiness, quality of sleep, decreased nocturia, increased?mental functioning such as memory, mood, and concentration. (2) PLMD (periodic limb movement disorder): Code(s): G47.61 - Periodic limb movement disorder Status: Acute Assessment and Plan: The patient had a significant number of limb movements during the study with the majority being periodic in nature. Approximately 25% of the periodic limb movements caused arousals in the patient's sleep. The patient's sleep history is highly suggestive of Restless Leg Syndrome. I recommend that the patient have a serum ferritin drawn for evaluation of iron deficiency anemia. If the patient has a serum ferritin less than 75 ng/mL, I recommend starting a daily iron supplement and a Vitamin C supplement for better absorption. If the serum ferritin is greater than 75 ng/mL, I recommend starting a dopamine agonist and titrating the dose until symptoms resolve. There are nonpharmacological methods to treat limb movements including daily exercise, stretching calf muscles before bed, avoiding excessive amounts of caffeine and alcohol, vitamin B supplementation, magnesium lotion massaged into legs before bed, and use of a weighted blanket. Data The data obtained during this sleep study is adequate for interpretation. Certification This sleep study has been reviewed by a board certified sleep medicine physician.
== END 2025-04-25 07:15 | disposition home or self-care (01) ==
PROVIDERS: PCP Internal Medicine; Visit Provider Nurse Practitioner Family
DX: G47.33 Obstructive sleep apnea (adult) (pediatric) (principal)
CPT/HCPCS: 95811

== ENCOUNTER 2025-07-14 00:53 | Day surgery (SDC) | payer BC, SELFPAY ==
[2025-07-06 15:56] VITALS: BMI 41.5
--- NOTE | 2025-07-07 16:45 | PC.NURSE ---
Spoke with _patient regarding medication warfarin. Patient verbalizes understanding that the last dose is to be taken on 07/08/2025 and the Endoscopist will instruct them when to restart after the procedure.
--- OUTSIDE RECORDS SUMMARY | 2025-07-14 00:56 | XMS_ITS | Encounter Summary ---
Author Organization [facility] Healthcare Address [address] [place] [address] Care Team Providers Care Fur Dyer Name Role Phone Guru Felix DO Primary Care Provider [phone]- [phone] Encounter Details Date Type Department Care Team (Late st Contact Info) Description 08/28/2024 Orders Only [facility] [place] Health Information Management [address] [place] [id number] Scanning, Provider Social History Tobacco Use Types Packs/Day Years Used Date Smoking Tobacco: Never Smokeless Tobacco: Never Alcohol Use Standard Drinks/Week Comments Yes 0 (1 standard drink = 0.6 oz pur e alcohol) Personal Safety Answer Date Recorded Getting School Help Needed Not on file 10/24 Sex and Gender Information Value Date Recorded Sex Assigned at Not on file Legal Sex Male 8:45 AM CDT Gender Identity Not on file Sexual Orientation Not on file documented as of this encounter Plan of Treatment Not on file documented as of this encounter Procedures Procedure Name Priority Date/Time Associated Diagnosis Comments SCAN - LABS 08/28/2024 documented in this encounter Results * SCAN - LABS (08/28/2024) us Provider Scanning Final Result documented in this encounter Visit Diagnoses Not on filedocumented in this encounter Care Teams Fur Dyer Relationship Specialty Start Date End Date Guru Felix DO PCP - General Internal Medicine 01/08/18 documented as of this encounter
--- OUTSIDE RECORDS SUMMARY | 2025-07-14 00:56 | XMS_ITS | Encounter Summary ---
Author Organization [facility] Healthcare Address [address] [place] [address] Care Team Providers Care Varnish Melter Name Role Phone Guru Felix DO Primary Care Provider +1- [phone] Encounter Details Date Type Department Care Team (Late st Contact Info) Description 07/28/2024 Orders Only [facility] [place] [facility] Health Information Management [address] [place] [phone] Scanning, Provider Social History Tobacco Use Types [...] Date/Time Associated Diagnosis Comments SCAN - LABS 07/28/2024 documented in this encounter Results * SCAN - LABS (07/28/2024) us Provider Scanning Final Result documented in this encounter Visit Diagnoses Not on filedocumented in this encounter Care Teams Varnish Melter Relationship Specialty Start Date End Date Guru Felix DO PCP - General Internal Medicine 01/08/18 documented as of this encounter
--- OUTSIDE RECORDS SUMMARY | 2025-07-14 00:56 | XMS_ITS | Encounter Summary ---
Author Organization [facility] Healthcare Address [address] [place] [address] Care Team Providers Care Vessel Operator Name Role Phone Guru Felix DO Primary Care Provider [phone]- [phone] Encounter Details Date Type Department Care Team (Late st Contact Info) Description 12/01/2023 Orders Only [facility] Health Information Management [address] [place] [id number] Scanning, Provider Social History Tobacco Use Types [...] Date/Time Associated Diagnosis Comments SCAN - LABS 12/01/2023 documented in this encounter Results * SCAN - LABS (12/01/2023) us Provider Scanning Final Result documented in this encounter Visit Diagnoses Not on filedocumented in this encounter Care Teams Vessel Operator Relationship Specialty Start Date End Date Guru Felix DO PCP - General Internal Medicine 01/08/18 documented as of this encounter
--- OUTSIDE RECORDS SUMMARY | 2025-07-14 00:56 | XMS_ITS | Clinical Summary ---
Author Organization [facility] Address [facility] [place] [address] Care Team Providers Care Family Practice Physician Assistant Name Role Phone Unavailable Primary Care Provider [...]
--- OUTSIDE RECORDS SUMMARY | 2025-07-14 00:56 | XMS_ITS | Clinical Summary ---
Author Organization [facility] Address [address] [place] [address] Care Team Providers Care Community Support Professional Name Role Phone Una Pennington MD Primary Care Provider +1- [phone] Source Comments [facility],non-owned Affiliates and Associated Physician Practices is amultiple site organization consisting of ambulatory clinics and hospital sitesin [place], [place], [place] and [place]. This disclosure is being madepursuant to the Care Everywhere program and may not contain all information available regarding this patient. Last updated 18.[facility] Allergies No known active allergies Medications * [...] Comments Blood Pressure 142/68 11/29/2016 10:07 AM ATHLETIC TEAM PHYSICIAN Pulse 102 11/29/2016 10:07 AM ATHLETIC TEAM PHYSICIAN Temperature 37.9 C (100.2 F) 11/29/2016 10:07 AM ATHLETIC TEAM PHYSICIAN Respiratory Rate 20 11/29/2016 10:07 AM ATHLETIC TEAM PHYSICIAN Oxygen Saturation 97% 11/29/2016 10:07 AM ATHLETIC TEAM PHYSICIAN Inhaled Oxygen Concentration - - Weight 136.1 kg (300 lb) 11/29/2016 10:07 AM ATHLETIC TEAM PHYSICIAN Height 185.4 cm (6' 1) 11/29/2016 10:07 AM ATHLETIC TEAM PHYSICIAN Body Mass Index 39.58 11/29/2016 10:07 AM ATHLETIC TEAM PHYSICIAN Plan of Treatment Health Maintenance Due Date [...] season) 2024 DEPRESSION SCREENING 11/12/2024 INFLUENZA VACCINE (#1) 2025 HIB VACCINE Aged Out No longer [...] complete this topic Insurance [employer] Care Teams Community Support Professional Relationship Specialty Start Date End Date Una Pennington MD PCP - General Family Medicine 07/14/16
--- OUTSIDE RECORDS SUMMARY | 2025-07-14 00:56 | XMS_ITS | Encounter Summary ---
Author Organization [facility] Healthcare Address [address] [place] [address] Care Team Providers Care Tax Advisor Name Role Phone Guru Felix DO Primary Care Provider +1- [phone] Encounter Details Date Type Department Care Team (Late st Contact Info) Description 09/21/2024 Orders Only [facility] [place] Health Information Management [address] [place] [id number] Scanning, Provider Social History Tobacco Use Types [...] Date/Time Associated Diagnosis Comments SCAN - LABS 09/21/2024 documented in this encounter Results * SCAN - LABS (09/21/2024) us Provider Scanning Final Result documented in this encounter Visit Diagnoses Not on filedocumented in this encounter Care Teams Tax Advisor Relationship Specialty Start Date End Date Guru Felix DO PCP - General Internal Medicine 01/08/18 documented as of this encounter
--- OUTSIDE RECORDS SUMMARY | 2025-07-14 00:56 | XMS_ITS | Encounter Summary ---
Author Organization [facility] Healthcare Address [address] [place] [address] Care Team Providers Care Certified Phlebotomist Name Role Phone Guru Felix DO Primary Care Provider +1- [phone] Encounter Details Date Type Department Care Team (Late st Contact Info) Description 06/16/2025 Telephone [facility] Cardiology [address] [place] [phone] Nick Randolph MD [address] [facility] [address] [place] [address] Social History Tobacco Use Types Packs/Day Years [...] on file documented as of this encounter Miscellaneous Notes * Telephone Encounter - Isaura Toro - 06/16/2025 11:48 AM CDT Oleksandr from pre arrival states [place] is required for CPT 31302. Contact: documented in this encounter Plan of Treatment Not on file documented as of this encounter Visit Diagnoses Not on filedocumented in this encounter Care Teams Certified Phlebotomist Relationship Specialty Start Date End Date Guru Felix DO PCP - General Internal Medicine 01/08/18 documented as of this encounter
--- OUTSIDE RECORDS SUMMARY | 2025-07-14 00:56 | XMS_ITS | Encounter Summary ---
Author Organization [facility] Healthcare Address [address] [place] [address] Care Team Providers Care Orthopaedic Nurse Name Role Phone Guru Felix DO Primary Care Provider +1- [phone] Encounter Details Date Type Department Care Team (Late st Contact Info) Description 01/26/2025 Orders Only [facility] [place] Health Information Management [address] [place] [phone] Scanning, Provider Social History Tobacco Use Types [...] Date/Time Associated Diagnosis Comments SCAN - LABS 01/26/2025 documented in this encounter Results * SCAN - LABS (01/26/2025) us Provider Scanning Final Result documented in this encounter Visit Diagnoses Not on filedocumented in this encounter Care Teams Orthopaedic Nurse Relationship Specialty Start Date End Date Guru Felix DO PCP - General Internal Medicine 01/08/18 documented as of this encounter
--- OUTSIDE RECORDS SUMMARY | 2025-07-14 00:56 | XMS_ITS | Encounter Summary ---
Author Organization [facility] Healthcare Address [address] [place] [address] Care Team Providers Care Mold Making Supervisor Name Role Phone Guru Felix DO Primary Care Provider +1- [phone] Encounter Details Date Type Department Care Team (Late st Contact Info) Description 06/30/2024 Orders Only [facility] [place] Health Information Management [address] [place] [address] Scanning, Provider Social History Tobacco Use Types [...] Date/Time Associated Diagnosis Comments SCAN - LABS 06/30/2024 documented in this encounter Results * SCAN - LABS (06/30/2024) us Provider Scanning Final Result documented in this encounter Visit Diagnoses Not on filedocumented in this encounter Care Teams Mold Making Supervisor Relationship Specialty Start Date End Date Guru Felix DO PCP - General Internal Medicine 01/08/18 documented as of this encounter
--- OUTSIDE RECORDS SUMMARY | 2025-07-14 00:56 | XMS_ITS | Encounter Summary ---
Author Organization [facility] Healthcare Address [address] [place] [address] Care Team Providers Care Saloon Keeper Name Role Phone Guru Felix DO Primary Care Provider +1- [phone] Encounter Details Date Type Department Care Team (Late st Contact Info) Description 04/06/2025 Orders Only [facility] [place] Health Information Management [address] [place] [phone] Scanning, Provider Social History Tobacco Use Types [...] Date/Time Associated Diagnosis Comments SCAN - LABS 04/06/2025 documented in this encounter Results * SCAN - LABS (04/06/2025) us Provider Scanning Final Result documented in this encounter Visit Diagnoses Not on filedocumented in this encounter Care Teams Saloon Keeper Relationship Specialty Start Date End Date Guru Felix DO PCP - General Internal Medicine 01/08/18 documented as of this encounter
--- OUTSIDE RECORDS SUMMARY | 2025-07-14 00:56 | XMS_ITS | Encounter Summary ---
Author Organization [facility] Healthcare Address [address] [place] [address] Care Team Providers Care Tire Adjuster Name Role Phone Guru Felix DO Primary Care Provider +1- [phone] Encounter Details Date Type Department Care Team (Late st Contact Info) Description 12/27/2024 Orders Only [facility] [place] Health Information Management [address] [place] [address] Scanning, Provider Social History Tobacco Use Types [...] Date/Time Associated Diagnosis Comments SCAN - LABS 12/27/2024 documented in this encounter Results * SCAN - LABS (12/27/2024) us Provider Scanning Final Result documented in this encounter Visit Diagnoses Not on filedocumented in this encounter Care Teams Tire Adjuster Relationship Specialty Start Date End Date Guru Felix DO PCP - General Internal Medicine 01/08/18 documented as of this encounter
--- OUTSIDE RECORDS SUMMARY | 2025-07-14 00:56 | XMS_ITS | Encounter Summary ---
Author Organization [facility] Healthcare Address [address] [place] [address] Care Team Providers Care Waxer Tender Name Role Phone Guru Felix DO Primary Care Provider +1- [phone] Encounter Details Date Type Department Care Team (Late st Contact Info) Description 02/04/2024 Orders Only [facility] [place] Health Information Management [address] [place] [phone] Scanning, Provider Social History Tobacco Use Types [...] Date/Time Associated Diagnosis Comments SCAN - LABS 02/04/2024 documented in this encounter Results * SCAN - LABS (02/04/2024) us Provider Scanning Final Result documented in this encounter Visit Diagnoses Not on filedocumented in this encounter Care Teams Waxer Tender Relationship Specialty Start Date End Date Guru Felix DO PCP - General Internal Medicine 01/08/18 documented as of this encounter
--- OUTSIDE RECORDS SUMMARY | 2025-07-14 00:56 | XMS_ITS | Encounter Summary ---
Author Organization [facility] Healthcare Address [address] [place] [address] Care Team Providers Care Choker Setter Name Role Phone Guru Felix DO Primary Care Provider +1- [phone] Encounter Details Date Type Department Care Team (Late st Contact Info) Description 11/18/2024 Orders Only [facility] [place] Health Information Management [address] [place] [phone] Scanning, Provider Social History Tobacco Use Types [...] Date/Time Associated Diagnosis Comments SCAN - LABS 11/18/2024 documented in this encounter Results * SCAN - LABS (11/18/2024) us Provider Scanning Final Result documented in this encounter Visit Diagnoses Not on filedocumented in this encounter Care Teams Choker Setter Relationship Specialty Start Date End Date Guru Felix DO PCP - General Internal Medicine 01/08/18 documented as of this encounter
--- OUTSIDE RECORDS SUMMARY | 2025-07-14 00:56 | XMS_ITS | Clinical Summary ---
Author Organization [facility] Address [address] [place] [address] Care Team Providers Care Traveling Engineer Name Role Phone Guru Felix DO Primary Care Provider +1- [phone] Allergies No known active allergies Medications aspirin [...] Encounters Date Type Department Care Team Description 07/06/2025 Anticoagulation Visit [facility] Cardiology [address] [place] [address] Chayito Alvarez RN H/O mechanical aortic valve replacement (Primary Dx) 06/16/2025 Telephone [facility] Cardiology [address] [place] [phone] Nick Randolph MD 06/08/2025 Telephone [facility] Cardiology [address] [place] [address] [address] [place] [phone] Nick Randolph MD 05/25/2025 Anticoagulation Visit [facility]iology [address] [place] [address] Chayito Alvarez RN H/O mechanical aortic valve replacement (Primary Dx) 05/13/2025 Anticoagulation Visit [facility] Cardiology at [address] [place] [phone] Edna Oconnor RN H/O mechanical aortic valve [...] Vaccine (1 of 2) 2024 Influenza Vaccine (#1) 2025 7, 07/22/2014, 08/23/2013 Pneumococcal vaccine <65 Aged Out No longer eligible based on patient's age to complete this topic Medical Devices Implanted Type Area Underground Repairer Device Identifier Shelf Expiration Date Model / Serial / Lot [employer] Aortic Valve Aortic Valve Procedures Procedure Name Priority Date/Time Associated Diagnosis Comments PROTIME-INR Routine 07/04/2025 PROTIME-INR Routine 05/25/2025 PROTIME-INR Routine 05/13/2025 from Last 3 Months Results * (ABNORMAL) Protime-INR (07/04/2025) INR 2.00(A) 0.90 - 1.10 EXTERNAL LAB Blood [facility] Provider MD LAB BLOOD ORDERABLES Tabby l Result Performing Organization Address [facility] de Phone Number EXTERNAL LAB * (ABNORMAL) Protime-INR (05/25/2025) INR 2.20(A) 0.90 - 1.10 EXTERNAL LAB Blood Result [facility] Provider MD LAB BLOOD ORDERABLES Edit ed Result - Final Performing Organization Address [facility] de Phone Number EXTERNAL LAB * (ABNORMAL) Protime-INR (05/13/2025) INR 1.20(A) 0.90 - 1.10 EXTERNAL LAB Blood Result [facility] Provider MD LAB BLOOD ORDERABLES Edit ed Result - Final Performing Organization Address [facility] de Phone Number EXTERNAL LAB from Last 3 Months Insurance [employer] [place] BL[place] BLUE ACC[place] OOS ANTHEM ACCESS Care Teams Traveling Engineer Relationship Specialty Start Date End Date Guru Felix DO PCP - General Internal Medicine 01/08/18
[2025-07-14 09:10] VITALS: BP 133/81; PULSE 87; RESP 16; TEMP 36; O2SAT 98; BMI 40.6
[2025-07-14] MEDS: LACTATED RINGERS 1,000 ML 150 ML IV CONT (09:33)
[2025-07-14] MEDS: GENTAMICIN 80MG/SOD CHL 50 ML 80 MG/50 ML BAG 100 MG IVPB (09:34)
[2025-07-14] MEDS: AMPICILLIN SODIUM 2 GM in SODIUM CHLORIDE 0.9% IV 100 ML 200 ML IVPB (09:55)
--- NOTE | 2025-07-14 10:09 | WPDANESEPPF ---
Anes - Initial Pre Proc Eval Procedure: Operation Date: 07/14/25 13:30 Proposed Procedures p Screening Colonoscopy - Hira Quinn DO Date/Time: 07/14/25 10:09 Surgeon: Hira Quinn DO Pre Op Diagnosis: Neoplasm screening Patient Data Age: 50 Gender: M Height: 1.85 m Weight: 139.5 kg Last Vital Signs Temp 96.8 F L 07/14/25 09:10 Pulse 87 07/14/25 09:10 Resp 16 07/14/25 09:10 BP 133/81 07/14/25 09:10 Pulse Ox 98 07/14/25 09:10 O2 Del Method Room Air 07/14/25 09:10 Allergies Allergy/AdvReac Type Severity Reaction Status Date / Time No Known Allergies Allergy Verified 07/14/25 09:20 Home Medications ?Medication ?Instructions ?Recorded ?Confirmed ?Type aspirin 81 mg chewable tablet 81 mg PO QAM 03/01/20 07/14/25 History warfarin 4 mg tablet 8 mg (2 x 4 mg) PO QPM #0 tabs 04/07/21 07/06/25 Rx atorvastatin 40 mg tablet 40 mg PO QAM #90 tabs 03/16/22 07/14/25 Rx acetaminophen 500 mg capsule 1,000 mg PO Q6H PRN pain 09/28/22 07/06/25 History metoprolol tartrate 50 mg tablet See Rx Instructions .Route 01/10/23 07/06/25 Rx .COMPLEX #380 tabs tadalafil 20 mg tablet (Cialis) 20 mg PO DAILY PRN sexual activity 10/21/24 07/14/25 Rx #30 tabs lisinopril 20 mg tablet 40 mg (2 x 20 mg) PO QAM #180 tabs 02/17/25 07/14/25 Rx amlodipine 5 mg tablet 5 mg PO DAILY #90 tabs 06/08/25 07/14/25 Rx tirzepatide 12.5 mg/0.5 mL 12.5 mg (0.5 mL) subcut WEEKLY #2 06/26/25 07/14/25 Rx subcutaneous pen injector mL (Mounjaro) metoprolol tartrate 100 mg tablet 100 mg PO Q12H 07/06/25 07/14/25 History warfarin 2 mg tablet 6 mg PO DAILY 07/06/25 07/14/25 History Laboratory Tests 07/14/25 09:38 POC Capillary Glucose 91 mg/dl (65-105) Patient hx anesthesia problems: none Family hx anesthesia problems: none Results Review: All pre-operative results and documents have been reviewed as part of the pre-operative evaluation. [facility] Past Medical History Medical History Morbid obesity due to excess calories CHF (congestive heart failure) ef 40-45% 03/02 DM2 (diabetes mellitus, type 2) Hyperlipidemia Congenital heart defect Bicuspid aortic valve found when presenting with CHF in 2016 Bicuspid aortic valve S/p mechanical aortic valve replacement in July [address] [facility] Ascending aortic aneurysm CT chest in February 2020 measured ascending aortic aneurysm of 5.2 cm. 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 He has 1 child, Nadia. His is the durable power finance attorney for healthcare. He is a full code. The patient occasionally uses alcohol but only socially. He does not use any marijuana or illicit drugs. He does not smoke use lifelong nonsmoker. He is of [place] descent. Smoking status: Former smoker Second hand tobacco smoke exposure: No Additional smoking assessment comments: STATES TRIED IN EARLY 20'S DID NOT LIKE IT AND QUIT Alcohol intake: current Drinks per week: 6 Substance use: never Substance use type: does not use Lack of Transportation: No Lack of Food: Never True Current Housing: I Have Housing Concerned About Future Housing: No Difficulty Paying Gas/Electric Bills: No Difficulty Paying for Meds: No Currently Unemployed: No Education: High School Diploma/GED Difficulty w/ Childcare or Family Care: No Living arrangements: with family Gender identity (if verbalized by the patient): Male Spiritual care concerns: No Anes - Eval Final PreProcedure Day of Procedure 07/14/25 10:09 Patient weight: morbidly obese Heart: regular rate and rhythm Lungs: clear to auscultation Airway: Mallampati scale class II Neurological: alert and oriented Last oral intake: >/= 8 hours ASA classification: IV Emergent: no Anesthetic plan: proceed Anesthesia type and monitoring: general GIVS and standard monitoring Results Review: All pre-operative results and documents have been reviewed as part of the pre-operative evaluation. Informed Consent: The patient's anesthetic plan and its attendant risks and benefits were discussed with the patient/family/POA. Questions were solicited and answers provided to the satisfaction of the patient/family/POA.
--- NOTE | 2025-07-14 10:14 | PM.IMHP ---
H&P: HPI History of Present Illness Date/Time: 07/14/25 10:14 Chief Complaint: screening for colorectal cancer Narrative: this is a 50-year-old man who presents for colonoscopy. He had a colonoscopy about 10 years ago which was normal. He denies family history of colon cancer but his father did have polyps. He denies any hematochezia or melena. Review of Systems Review of Systems: All systems reviewed & are unremarkable except as noted in HPI and below Constitutional: Constitutional: Denies chills, Denies fever(s), Denies headache(s) and Denies weight loss Eyes: Eyes: Denies change in vision ENT: Denies dizziness, Denies headache(s), Denies neck mass and Denies throat swelling Cardiovascular: Cardiovascular: Denies chest pain, Denies lightheadedness and Denies dyspnea Respiratory: Respiratory: Denies cough, Denies dyspnea and Denies wheezing Gastrointestinal: Gastrointestinal: Denies abdominal pain, Denies change in bowel habits, Denies nausea and Denies vomiting Genitourinary: Genitourinary: Denies hematuria and Denies dysuria Musculoskeletal: Musculoskeletal: Reports as per HPI Integumentary/Breasts: Skin/Breast: Reports as per HPI Neurologic: Denies dizziness and Denies headache(s) Allergic/Immunologic: Allergic/Immunologic: Denies throat swelling and Denies wheezing PMF Past Medical History Medical History Morbid obesity due to excess calories CHF (congestive heart failure) ef 40-45% 03/02 DM2 (diabetes mellitus, type 2) Hyperlipidemia Congenital heart defect Bicuspid aortic valve found when presenting with CHF in 2016 Bicuspid aortic valve S/p mechanical aortic valve replacement in July 2017 at [facility] Ascending aortic aneurysm CT chest in February 2020 measured ascending aortic aneurysm of 5.2 cm. 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 He has 1 child, Nadia. His is the durable power patcher helper for healthcare. He is a full code. The patient occasionally uses alcohol but only socially. He does not use any marijuana or illicit drugs. He does not smoke use lifelong nonsmoker. He is of [place] descent. Smoking status: Former smoker Second hand tobacco smoke exposure: No Additional smoking assessment comments: STATES TRIED IN EARLY DID NOT LIKE IT AND QUIT Alcohol intake: current Drinks per week: 6 Substance use: never Substance use type: does not use Lack of Transportation: No Lack of Food: Never True Current Housing: I Have Housing Concerned About Future Housing: No Difficulty Paying Gas/Electric Bills: No Difficulty Paying for Meds: No Currently Unemployed: No Education: High School Diploma/GED Difficulty w/ Childcare or Family Care: No Living arrangements: with family Gender identity (if verbalized by the patient): Male Spiritual care concerns: No Meds Home Medications and Allergies Home Medications ?Medication ?Instructions ?Recorded ?Confirmed ?Type aspirin 81 mg chewable tablet 81 mg PO QAM 03/01/20 07/14/25 History warfarin 4 mg tablet 8 mg (2 x 4 mg) PO QPM #0 tabs 04/07/21 07/06/25 Rx atorvastatin 40 mg tablet 40 mg PO QAM #90 tabs 03/16/22 07/14/25 Rx acetaminophen 500 mg capsule 1,000 mg PO Q6H PRN pain 09/28/22 07/06/25 History metoprolol tartrate 50 mg tablet See Rx Instructions .Route 01/10/23 07/06/25 Rx .COMPLEX #380 tabs tadalafil 20 mg tablet (Cialis) 20 mg PO DAILY PRN sexual activity 10/21/24 07/14/25 Rx #30 tabs lisinopril 20 mg tablet 40 mg (2 x 20 mg) PO QAM #180 tabs 02/17/25 07/14/25 Rx amlodipine 5 mg tablet 5 mg PO DAILY #90 tabs 06/08/25 07/14/25 Rx tirzepatide 12.5 mg/0.5 mL 12.5 mg (0.5 mL) subcut WEEKLY #2 06/26/25 07/14/25 Rx subcutaneous pen injector mL (Eduarda) metoprolol tartrate 100 mg tablet 100 mg PO Q12H 07/06/25 07/14/25 History warfarin 2 mg tablet 6 mg PO DAILY 07/06/25 07/14/25 History Allergies Allergy/AdvReac Type Severity Reaction Status Date / Time No Known Allergies Allergy Verified 07/14/25 09:20 Vital Signs Vital Signs - 24 hr 07/14/25 09:10 Temperature 96.8 F L Pulse Rate 87 Respiratory Rate 16 Blood Pressure 133/81 Pulse Oximetry 98 Oxygen Delivery Room Air Exam Const: General: no acute distress and alert Orientation/consciousness: patient oriented x3 HENMT: Head: normocephalic and atraumatic Ears: hearing grossly normal bilaterally Face/Nose/Sinus: Normal nares present Mouth: Yes Normal oral and palatal mucosa present Eyes: Periorbital: periorbital findings normal Sclera: sclerae normal EOM: EOMs intact bilaterally Neck: Neck: normal visual inspection, no lymphadenopathy and trachea midline Chest: Chest palpation & inspection: normal inspection of the chest Resp: Effort & Inspection: normal respiratory effort Auscultation: clear to auscultation bilaterally Cardio: Jugular venous distension: no JVD Rate: regular rate Rhythm: regular rhythm Heart sounds: S1 normal heart sound present and S2 normal heart sound present Peripheral pulses: Peripheral pulses 2+ throughout GI: Inspection: normal to inspection GI Palp: Yes Soft to palpation, No Tenderness to palpation present (GI), No Guarding due to palpation present (GI) and No Rebound tenderness present Percussion: Yes normal to percussion Auscultation: normal bowel sounds : General: Yes no CVA tenderness Back/Spine/Pelvis: Back: no CVA tenderness Neuro: General: patient oriented x3, no focal motor deficits and CN's II-XI intact bilaterally Cognition (Neuro): normal cognition Speech: normal speech Motor exam (neuro): 5/5 motor strength present throughout Extrem: General: capillary refill normal and no clubbing, cyanosis or edema Assessment and Plan Assessment and plan (1) Screening for colorectal cancer: Code(s): Z12.11 - Encounter for screening for malignant neoplasm of colon; Z12.12 - Encounter for screening for malignant neoplasm of rectum Status: Acute Assessment and Plan: I have recommended colonoscopy. I have discussed the procedure, risks, benefits, and alternatives. Questions were answered. Patient is agreeable to proceed.
[2025-07-14 10:35] VITALS: BP 121/84; PULSE 83; RESP 29; O2SAT 96
[2025-07-14 10:45] VITALS: BP 127/82; PULSE 76; RESP 22; O2SAT 97
--- NOTE | 2025-07-14 10:47 | SUR.PHASEII ---
Spoke to Dr. Quinn about patient's warfarin. Provider ok with patient starting warfarin tomorrow (07/15/25).
[2025-07-14 10:55] VITALS: BP 148/89; PULSE 85; RESP 19; O2SAT 100
== END 2025-07-14 11:05 | disposition home or self-care (01) ==
PROVIDERS: PCP Internal Medicine; Visit Provider Surgery
PROC: 0DJD8ZZ Inspection of Lower Intestinal Tract, Via Natural or Artificial Opening Endoscopic (ICD-10-PCS; CPT 45378; principal; 2025-07-14 13:30)
DX: Z12.11 Encounter for screening for malignant neoplasm of colon (principal); I11.0 Hypertensive heart disease with heart failure; I50.9 Heart failure, unspecified; E11.9 Type 2 diabetes mellitus without complications; E78.5 Hyperlipidemia, unspecified; G47.33 Obstructive sleep apnea (adult) (pediatric); E66.01 Morbid (severe) obesity due to excess calories; Z68.41 Body mass index [BMI] 40.0-44.9, adult; Z79.82 Long term (current) use of aspirin; Z79.01 Long term (current) use of anticoagulants; Z79.85 Long-term (current) use of injectable non-insulin antidiabetic drugs; Z98.890 Other specified postprocedural states; Z90.49 Acquired absence of other specified parts of digestive tract; Z95.2 Presence of prosthetic heart valve; Z87.891 Personal history of nicotine dependence; Z87.74 Personal history of (corrected) congenital malformations of heart and circulatory system; Z83.719 Family history of colon polyps, unspecified; Z80.9 Family history of malignant neoplasm, unspecified; Z82.49 Family history of ischemic heart disease and other diseases of the circulatory system
CPT/HCPCS: 45378; 82948; J0290; J1580; J2003; J2704; J7120

== ENCOUNTER 2025-09-14 09:40 | Outpatient (CLI) | payer BC, SELFPAY ==
--- NOTE | ~2025-09-14 | CT_ITS ---
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 Sagittal and coronal reformatted images were obtained. FINDINGS: Lungs and pleura: [ Tracheobronchial tree is patent. No pneumothorax. No pleural effusion. No focal pulmonary consolidation. No pulmonary mass.] Mediastinum and pulmonary aura: [ No mass or adenopathy.] Axillary/intramammary and supraclavicular: [ No mass or adenopathy.] Heart and great vessels: [ Normal heart size.[ [ No pericardial effusion.] Grossly stable appearance of the ascending thoracic aorta. Coronary artery calcifications are present. Moderate atherosclerotic disease in the thoracic aorta. Aortic valve replacement noted. Correlate clinically. Chest Wall: [ Unremarkable.] Upper Abdomen: Cholecystomy clips are present. Too small to characterize low- attenuation lesion in the right kidney. Osseous structures: [ No acute fracture lesion.] [ Multilevel degenerative change in the visualized spine.] Additional findings: [ None of significance.] IMPRESSION: 1. Grossly stable appearance of the ascending thoracic aorta. Reviewed, dictated and finalized at location Q. NNAISE MIXER
[2025-09-14 10:02] LABS: Estimated Glomerular Filt Rate > 60
--- OUTSIDE RECORDS SUMMARY | 2025-09-14 10:25 | XMS_ITS | Clinical Summary ---
Author Organization [facility] Address [address] [place] [id number] Care Team Providers Care Yarn Finisher Name Role Phone Unavailable Primary Care Provider [...] of 2) 2024 COVID-19 Vaccine (1 - 2024-2 6 season) 2025 Influenza Adult (#1) 2025 Hepatitis A Vaccines Aged Out No long er eligible based on patient's age to complete this topic Meningococcal B Vaccine Aged Out No l onger eligible based on patient's age to complete this topic Meningococcal Vaccine Aged Out No mejia siobhan eligible based on patient's age to complete this topic RSV Immunizations Under 20 Months Aged Out No longer eligible based on patient's age to complete this topic
--- OUTSIDE RECORDS SUMMARY | 2025-09-14 10:25 | XMS_ITS | Encounter Summary ---
Author Organization [facility] Healthcare Address [address] [place] [address] Care Team Providers Care Financial Analyst Accountant Name Role Phone Guru Felix DO Primary Care Provider Encounter Details Date Type Department Care Team (Late st Contact Info) Description 07/04/2025 Orders Only [facility] [place] [address] [place] [phone] Scanning, Provider Social History Tobacco Use Types [...] Date/Time Associated Diagnosis Comments SCAN - LABS 07/04/2025 documented in this encounter Results * SCAN - LABS (07/04/2025) us Provider Scanning Final Result documented in this encounter Visit Diagnoses Not on filedocumented in this encounter Care Teams Financial Analyst Accountant Relationship Specialty Start Date End Date Guru Felix DO PCP - General Internal Medicine 01/08/18 documented as of this encounter
--- OUTSIDE RECORDS SUMMARY | 2025-09-14 10:25 | XMS_ITS | Clinical Summary ---
Author Organization [facility] Address [address] [place] [address] Care Team Providers Care Pet Stylist Name Role Phone Guru Felix DO Primary Care Provider Allergies No known active allergies Medications aspirin [...] Active Additional Information Patient not taking.Reported on 08/24/2025 metFORMIN (GLUCOPHAGE) 500 mg tablet Take 1 tablet (500 mg total) by mouth 2 (two) times a day 024 Active tadalafiL (CIALIS) 20 mg tablet Take 1 tablet (20 mg total) by mouth daily as needed for erectile dysfunction Active atorvastatin (LIPITOR) 40 mg tablet TAKE 1 TABLET(40 MG) BY MOUTH DAILY 90 tablet 1 025 Active metoprolol (LOPRESSOR) 100 mg tabletIndications:A scending aortic aneurysm TAKE 1 TABLET(100 MG) BY MOUTH TWICE DAILY 180 tablet 1 Active Mounjaro 12.5 mg/0.5 mL pen injector injection ADMINISTER 12.5 MG UNDER THE SKIN WEEKLY Active warfarin (COUMADIN) 2 mg tablet TAKE [...] Aortic aneurysm 07/17/2017 11/02/2018 Congenital heart defect /02/2018 Enlarged heart 06/30/2018 Encounters Date Type Department Care Team Description 08/24/2025 3:45 PM CDT Office Visit [facility] [address] [place] [address] [address] [place] [address] Nick Randolph MD H/O mechanical aortic valve replacement (Primary Dx) 08/17/[address] [facility] [address] [place] [address] [place] [phone] Edna Oconnor RN H/O mechanical aortic valve replacement (Primary Dx) 07/06/[address] [facility] [address] [place] [address] [address] [place] [address] Chayito Alvarez RN H/O mechanical aortic valve replacement (Primary Dx) 07/04/2025 Orders Only [facility] [place] Health Information Management [address] [place] [id number] Scanning, Provider 06/16/[address] [facility] [address] [place] [address] [address] [place] [address] Nick Randolph MD from Last 3 Months Surgical History Surgery [...] Sign Reading Time Taken Comments Blood Pressure 116/78 08/24/2025 3:52 PM CDT Pulse 80 08/24/2025 3:52 PM CDT Temperature 36.7 C (98 F) 03/15/2021 10:29 AM CDT Respiratory Rate 14 04/10/2023 1:04 PM CDT Oxygen Saturation 95% 08/24/2025 3:52 PM CDT Inhaled Oxygen Concentration - - Weight 143.2 kg (315 lb 9.6 oz) 08/24/2025 3:52 PM CDT Height 185.4 cm (6' 1) 08/24/2025 3:52 PM CDT Body Mass Index 41.64 08/24/2025 3:52 PM CDT Plan of Treatment Health Maintenance Due Date Last Done Comments Colon Cancer Screening-Colonoscopy 1974 Depression Screening 1974 Hepatitis C Screening 1974 Prostate Cancer Screening-PSA 1974 DTaP/Tdap/Td Vaccine (1 - Tdap) 1985 Hepatitis B Screening 1992 Regular Well Visit/Exam 18-64 1992 Pneumococcal vaccine <65 (1 of 2 - PCV) 1993 Zoster Vaccine (1 of 2) 2024 Influenza Vaccine (#1) 2025 7, 07/22/2014, 08/23/2013 Medical Devices Implanted Type Area Physics And Astronomy Professor Device Identifier Shelf Expiration Date Model / Serial / Lot [employer] Aortic Valve Aortic Valve Procedures Procedure Name Priority Date/Time Associated Diagnosis Comments POCT LIPID PANEL Routine 08/24/2025 3:01 PM CDT H/O mechanical aortic valve replacement PROTIME-INR Routine 08/12/2025 SCAN - LABS 07/04/2025 PROTIME-INR Routine 07/04/2025 from Last 3 Months Results * (ABNORMAL) POCT lipid panel (08/24/2025 3:01 PM CDT) Cholesterol, POC 113 <200 MG/DL Comment:GLU = 135 HDL, POC 26(A) >=40 mg/dL Triglycerides, POC 203(A) <=149 mg/dL LDL Cholesterol POC 47 <=129 mg/dL Chol/HDL Ratio, POC 1.8 NONE Non-HDL Cholesterol, POC 88 NONE mg/dL Cholesterol Total, POC 113 30 - 199 mg/dL Capillary blood 08/24/2025 3 :01 PM CDT Nick Randolph MD POINT OF CARE TEST ORDER LETICIA Final Result * (ABNORMAL) Protime-INR (08/12/2025) INR 2.00(A) 0.90 - 1.10 EXTERNAL LAB Blood Historical Provider LAB BLOOD ORDERABLES Tabby l Result EXTERNAL LAB * SCAN - LABS (07/04/2025) Provider Scanning Final Result * (ABNORMAL) Protime-INR (07/04/2025) INR 2.00(A) 0.90 - 1.10 EXTERNAL LAB Blood Historical Provider MD LAB BLOOD ORDERABLES Tabby l Result EXTERNAL LAB from Last 3 Months Insurance BLUE ACCESS [place] BL[place] ACC[place] BLUE ACCESS OOS ANTHEM ACCESS Care Teams Pet Stylist Relationship Specialty Start Date End Date Guru Felix DO PCP - General Internal Medicine 01/08/18
--- OUTSIDE RECORDS SUMMARY | 2025-09-14 10:25 | XMS_ITS | Encounter Summary ---
Author Organization [facility] Healthcare Address [address] [place] [address] Care Team Providers Care Carpet Loom Fixer Name Role Phone Guru Felix DO Primary Care Provider Encounter Details Date Type Department Care Team (Late st Contact Info) Description 08/28/2024 [place] Only [facility] [place] Management [address] [place] [id number] Scanning, Provider Social History Tobacco Use Types [...] on filedocumented in this encounter Care Teams Carpet Loom Fixer Relationship Specialty Start Date End Date Guru Felix DO PCP - General Internal Medicine 01/08/18 documented as of this encounter
--- OUTSIDE RECORDS SUMMARY | 2025-09-14 10:25 | XMS_ITS | Clinical Summary ---
Author Organization [facility] Address [address] [facility] [place] [address] Care Team Providers Care Teacher Of The Deaf Name Role Phone Una Pennington MD Primary Care Provider [phone] Source Comments [facility],non-owned Affiliates and Associated Physician Practices is amultiple site organization consisting of ambulatory clinics and hospital sitesin [place], [place], [place] and [place]. This disclosure is being madepursuant to the Care Everywhere program and may not contain all information available regarding this patient. Last updated 18.[facility] Allergies No known active allergies Medications * [...] Comments Blood Pressure 142/68 11/29/2016 10:07 AM MEDICAL VAN DRIVER Pulse 102 11/29/2016 10:07 AM MEDICAL VAN DRIVER Temperature 37.9 C (100.2 F) 11/29/2016 10:07 AM MEDICAL VAN DRIVER Respiratory Rate 20 11/29/2016 10:07 AM MEDICAL VAN DRIVER Oxygen Saturation 97% 11/29/2016 10:07 AM MEDICAL VAN DRIVER Inhaled Oxygen Concentration - - Weight 136.1 kg (300 lb) 11/29/2016 10:07 AM MEDICAL VAN DRIVER Height 185.4 cm (6' 1) 11/29/2016 10:07 AM MEDICAL VAN DRIVER Body Mass Index 39.58 11/29/2016 10:07 AM MEDICAL VAN DRIVER Plan of Treatment Health Maintenance Due Date [...] 2024 ZOSTER VACCINE (1 of 2) 2024 DEPRESSION SCREENING 11/12/2024 COVID-19 VACCINE (1 - 2023-2 5 season) 2025 INFLUENZA VACCINE (#1) 2025 HIB VACCINE Aged [...] complete this topic Insurance [employer] Care Teams Teacher Of The Deaf Relationship Specialty Start Date End Date Una Pennington MD PCP - General Family Medicine 07/14/16
--- OUTSIDE RECORDS SUMMARY | 2025-09-14 10:25 | XMS_ITS | Encounter Summary ---
Author Organization [facility] Healthcare Address [address] [place] [address] Care Team Providers Care Testboard Operator Name Role Phone Guru Felix DO Primary Care Provider Encounter Details Date Type Department Care Team (Late st Contact Info) Description 12/27/2024 Orders Only [facility] [place] Health Information Management [address] [place] [phone] Scanning, Provider Social History Tobacco Use Types [...] on filedocumented in this encounter Care Teams Testboard Operator Relationship Specialty Start Date End Date Guru Felix DO PCP - General Internal Medicine 01/08/18 documented as of this encounter
--- OUTSIDE RECORDS SUMMARY | 2025-09-14 10:25 | XMS_ITS | Encounter Summary ---
Author Organization [facility] Healthcare Address [address] [place] [address] Care Team Providers Care Finance Lead Name Role Phone Guru Felix DO Primary Care Provider Encounter Details Date Type Department Care Team (Late st Contact Info) Description 01/26/2025 Orders Only [facility] [place] Information [place] [address] [place] [phone] Scanning, Provider Social History Tobacco Use Types [...] on filedocumented in this encounter Care Teams Finance Lead Relationship Specialty Start Date End Date Guru Felix DO PCP - General Internal Medicine 01/08/18 documented as of this encounter
--- OUTSIDE RECORDS SUMMARY | 2025-09-14 10:25 | XMS_ITS | Encounter Summary ---
Author Organization [facility] Healthcare Address [address] [place] [address] Care Team Providers Care Soft Drink Powder Mixer Name Role Phone Guru Felix DO Primary Care Provider Encounter Details Date Type Department Care Team (Late st Contact Info) Description 04/06/[address] [facility] [place] Health Information Management [address] [place] [phone] Scanning, Provider Social History Tobacco Use Types [...] on filedocumented in this encounter Care Teams Soft Drink Powder Mixer Relationship Specialty Start Date End Date Guru Felix DO PCP - General Internal Medicine 01/08/18 documented as of this encounter
--- OUTSIDE RECORDS SUMMARY | 2025-09-14 10:25 | XMS_ITS | Encounter Summary ---
Author Organization [facility] Healthcare Address [address] [place] [address] Care Team Providers Care Resort Manager Name Role Phone Guru Felix DO Primary Care Provider Encounter Details Date Type Department Care Team (Late st Contact Info) Description 10/24/2024 Orders Only [facility] [place] Health Information Management [address] [place] [phone] Scanning, Provider Social History Tobacco Use Types [...] Date/Time Associated Diagnosis Comments SCAN - LABS 10/24/2024 documented in this encounter Results * SCAN - LABS (10/24/2024) us Provider Scanning Final Result documented in this encounter Visit Diagnoses Not on filedocumented in this encounter Care Teams Resort Manager Relationship Specialty Start Date End Date Guru Felix DO PCP - General Internal Medicine 01/08/18 documented as of this encounter
--- OUTSIDE RECORDS SUMMARY | 2025-09-14 10:25 | XMS_ITS | Encounter Summary ---
Author Organization [facility] Healthcare Address [address] [place] [address] Care Team Providers Care Installer Molding And Trim Name Role Phone Guru Felix DO Primary Care Provider Encounter Details Date Type Department Care Team (Late st Contact Info) Description 09/21/2024 Orders Only [facility] [place] [address] [place] [phone] Scanning, Provider Social History Tobacco Use Types [...] on filedocumented in this encounter Care Teams Installer Molding And Trim Relationship Specialty Start Date End Date Guru Felix DO PCP - General Internal Medicine 01/08/18 documented as of this encounter
--- OUTSIDE RECORDS SUMMARY | 2025-09-14 10:25 | XMS_ITS | Encounter Summary ---
Author Organization [facility] Healthcare Address [address] [place] [address] Care Team Providers Care Painter Foreman Name Role Phone Guru Felix DO Primary Care Provider Encounter Details Date Type Department Care Team (Late st Contact Info) Description 11/18/2024 Orders Only [facility] [place] Health Information Management [address] [place] [phone] Scanning, Provider Social History Tobacco Use Types [...] on filedocumented in this encounter Care Teams Painter Foreman Relationship Specialty Start Date End Date Guru Felix DO PCP - General Internal Medicine 01/08/18 documented as of this encounter
== END 2025-09-14 09:41 | disposition home or self-care (01) ==
PROVIDERS: PCP Internal Medicine; Visit Provider Specialist
DX: Z95.2 Presence of prosthetic heart valve (principal)
CPT/HCPCS: 71275; Q9967